=== PATIENT | male | born 1960 | race Caucasian/White ===

== ENCOUNTER 2018-09-29 12:07 | Inpatient (IN) | payer OTHER, SELFPAY ==
[2018-09-29] VITALS (15 sets, daily range): BP systolic 143–163; BP diastolic 81–100; PULSE 61–91; RESP 18–28; TEMP 36.8–38.3; O2SAT 88–96; BMI 41.5; BMI 39.4; BMI 39.5
--- NOTE | 2018-09-29 12:30 | EKG12_ITS ---
Test Reason : SOB Blood Pressure : / mmHG Vent. Rate : 082 BPM Atrial Rate : 082 BPM P-R Int : 150 ms QRS Dur : 100 ms QT Int : 394 ms P-R-T Axes : 037 103 047 degrees QTc Int : 460 ms Normal sinus rhythm Rightward axis Cannot rule out Inferior infarct , age undetermined Abnormal ECG Confirmed by RAPHAEL GONZALEZ, GELY ([id number]), website/blog editor AURELIA GARDNER ([id number]) on 10/02/2018 3:08:35 PM Referred By: MOISE Confirmed By:GELY LIM MD
--- NOTE | 2018-09-29 12:42 | ED.RN ---
NO OLD EKG
--- NOTE | 2018-09-29 12:45 | RAD_ITS ---
STUDY: X-RAY CHEST REASON FOR EXAM: Male, 58 years old. Cough and shortness of breath TECHNIQUE: AP COMPARISON: None. FINDINGS: EKG leads project over the chest. Mild elevation of the right hemidiaphragm. No airspace consolidation. There is no demonstrated pleural abnormality. Normal size cardiac silhouette for portable technique. Normal mediastinum and kirsten. Normal visualized pulmonary arteries. Normal visualized aortic arch and descending thoracic aorta. Normal visualized thoracic spine. Normal visualized ribs, clavicles, and shoulders. There is no demonstrated abnormality of the visualized soft tissue structures of the upper abdomen. RAD/Chest 1 View (Portable) IMPRESSION: Nonacute portable x-ray examination of the chest. Electronically Signed: Art Franks MD at 13:17 EST , Service support ,
[2018-09-29] MEDS: 0.9% Normal Saline 1,000 ML 150 ML IV (12:56)
[2018-09-29 12:58] LABS: Absolute Lymphocyte Count 1.55 X10^3/ul (0.83-4.51); Absolute Neutrophil Count 6.1 X10^3/uL (2.0-7.7); Basophil# 0.02 X10^3/uL; Basophil% 0.2 % (0-1); Eosinophil# 0.03 X10^3/uL; Eosinophils% 0.3 % (0-5); Hematocrit 40.6 % (40-54); Hemoglobin 13.8 g/dl (13.0-16.5); Lymphocyte # 1.55 X10^3/ul (4.0); Lymphocyte % 17.7 % (19-41); Mean Corpuscular Hgb 29.2 pg (27.0-32.0); Mean Corpuscular Volume 85.8 fL (80-94); Mean Platelet Vol. 9.9 fl (6.2-12.0); Monocyte# 1.03 X10^3/uL; Monocyte% 11.8 % (0-10); Neutrophil % 69.7 % (47-70); Platelet Count 214 K/mm3 (150-450); RBC Distribution Width CV 13.3 % (11.6-14.6); RBC Distribution Width SD 42.2 fl (35.1-43.9); Red Blood Count 4.73 M/mm3 (4.6-6.2); White Blood Count 8.8 K/mm3 (4.4-11.0)
[2018-09-29 12:59] LABS: POSITIVE COUNT NO; POSITIVE DIFFERENTIAL NO; POSITIVE MORPHOLOGY NO
[2018-09-29 13:09] LABS: Anion Gap 6 (5-15); BUN 12 mg/dL (7-18); BUN/Creat Ratio 11.2 RATIO (10-20); Calcium,Total 8.1 mg/dL (8.5-10.1); Chloride 102 mmol/L (98-107); Creatinine, Serum 1.07 mg/dL (0.70-1.30); EST Glomerular Filtration Rate 76 mL/min (>60); Est Glom Filt Rate - Afr Amer 92 mL/min (>60); Estimated Creatinine Clearance 67.06 ml/min; Glucose 99 mg/dL (74-106); Potassium 3.7 mmol/L (3.5-5.1); Sodium Level 139 mmol/L (136-145)
[2018-09-29 13:22] LABS: Lactic Acid 1.4 mmol/L (0.4-2.0)
--- NOTE | 2018-09-29 13:22 | CT_ITS ---
STUDY: CTA CHEST REASON FOR EXAM: Male, 58 years old. Shortness of breath with cough and intermittent fevers RADIATION DOSAGE (If Supplied By Facility): CTDIvol = ( 16.67 ) mGy, DLP = ( 677.01 ) mGycm TECHNIQUE: The examination was performed with the intravenous administration of 100ML ml of Isovue 370 contrast material. Post-processing of the angiographic images was performed, with multiplanar reformation and 3D reconstruction. Individualized dose optimization techniques were used for this CT. COMPARISON: None. FINDINGS: Normal enhancement of the main pulmonary artery and right and left pulmonary arteries. There are filling defects identified in the bilateral upper lobes, right middle lobe, lingular and bilateral lower lobe segmental pulmonary arteries. No saddle embolus seen. No evidence of right heart strain. Normal thoracic aorta and visualized great vessels. There is no demonstrated aortic dissection. Heart is mildly enlarged. There are visualized mediastinal lymph nodes, which are within normal size limits, and with normal morphology. Normal hilar regions. Normal visualized trachea and bronchi. The lungs are well expanded. Multilobar peribronchial infiltrates identified in the right upper lobe, right lower lobe and left lower lobe. Minimal reticulonodular densities in the lingula. Normal pleura. Normal chest wall structures. There are degenerative changes of thoracic spine. Normal visualized upper abdomen. CT/CTA Chest W/WO Contrast IMPRESSION: 1. Bilateral segmental pulmonary embolism. No CT evidence of right heart strain. 2. Mild cardiomegaly. 3. Multilobar pulmonary infiltrates may represent atelectasis versus airspace disease (pneumonia, edema or hemorrhage). Electronically Signed: Art Franks MD at 14:05 EST , Service support ,
[2018-09-29] MEDS: Acetaminophen 500 MG Tablet 1000 MG PO (14:05)
--- NOTE | 2018-09-29 14:42 | NURSING ---
DR ROSA CALLED BACK
--- NOTE | 2018-09-29 14:43 | NURSING ---
DR ROSA IN ROOM
[2018-09-29 14:44] LABS: Partial Thromboplast Time 29.2 Seconds (24.1-36.2)
--- NOTE | 2018-09-29 14:51 | NURSING ---
PCU PE, BRONCHITIS KOTSONIS
--- NOTE | 2018-09-29 15:08 | HP.PCM_ITS ---
Problem List (1) Pulmonary embolism Status: Acute (2) Pneumonia Status: Acute (3) HTN (hypertension) Status: Chronic History of Present Illness Date of Admission: 09/29/18 Chief Complaint: SOB The patient is a 58 year old M with a history of hypertension presents with a 2- week history of shortness of breath. He denies any chest pain. He did go see his primary care physician a few days after this started and he was given an inhaler and told that it was likely a viral infection. He presents today because he was walking from his living room to his kitchen and had to stop long-term and hold onto a railing because he was so short of breath. On presentation to the ER, he continues to deny chest pain, lightheadedness, dizziness, fever, chills, however he is endorsing a cough and significant shortness of breath. He was found to be hypoxic on room air to 88% and was started on nasal cannula. CTA of the chest shows bilateral infiltrates that could either be atelectasis, pneumonia, or hemorrhage. Also it demonstrates bilateral pulmonary emboli. Currently he is not tachycardic and therefore unlikely to have significant right-sided heart strain. Of note he says that he has chronic edema because of working that does resolve and his PCP did evaluate him multiple times for possible DVTs in the past. He does not have any recent history of abnormal leg swelling or pain. Also of note he states that he has had a colonoscopy very recently that was negative for any cancer, he did have one polyp removed that was noncancerous. He does not endorse any significant weight loss. Past Medical History Past Medical History (Chronic Problems): Chronic Problems HTN (hypertension) (Chronic) Allergies No Known Allergies Allergy (Verified 09/29/18 12:08) Home Medications: Ambulatory Orders Medication Instructions Recorded Albuterol IH (ProAir) [Proair Hfa] 1 - 2 puff INHALATION Q6H PRN 09/29/18 Bisoprol/Hydrochlorothiazide [Ziac 1 tab PO DAILY 09/29/18 5/6.25 MG Tablet] Virtussin 10 ml PO Q6H PRN 09/29/18 Surgical History: no surgical history Lives: Spouse/ Significant Other Smoking Status: Never smoker Alcohol: None Drugs: None - *Family History Maternal History Items: Cancer, Heart Disease, - - No history of DVTs or PEs Paternal History Items: Cancer, Heart Disease, - - No history of DVTs or PEs Review of Systems Constitutional: Denies: Chills, Fever, Weight Change HEENT: Denies: Head Aches, Sinus Congestion, Sinus Drainage Cardiovascular: Reports: Edema. Denies: Chest Pain, Palpitations Respiratory: Reports: Cough, Shortness of Breath, Shortness of breath at rest, Shortness of breath upon exertion. Denies: Hemoptysis, Pleuritic Pain, Sputum production, Wheezing Gastrointestinal: Denies: Abdominal Pain, Nausea, Vomiting Genitourinary: Denies: Dysuria Musculoskeletal: Denies: Joint Pain, Joint Tenderness Skin: Denies: Rash, Wounds Neurological: Denies: Numbness, Tingling, Focal weakness Psychiatric: Denies: Anxiety, Depression Hematologic/ Lymphatic: Denies: Easy Bruising, Easy Bleeding VTE Information - Inpt Only VTE Present on Admission: Yes VTE Mechan Device Prophylaxis: None VTE Pharm Prophylaxis ordered?: Yes VTE Suspected: Suspected PE Patient Problems: Active and Suspected Problems Pulmonary embolism (Acute) Pneumonia (Acute) - Physical Exam General: Alert, Oriented x3, Cooperative, No apparent distress HEENT: Atraumatic, PERRLA, EOMI, Normocephalic Oral: Moist Mucosa Neck: Supple, No JVD Lungs: Clear to auscultation, Normal air movement, No rhonchi, No wheeze, No rales Cardiovascular: Regular rate, Regular Rhythm Vital Signs Temp Pulse Resp BP Pulse Ox 101 F H 91 20 H 149/95 H 96 09/29/18 14:00 09/29/18 14:56 09/29/18 14:56 09/29/18 14:56 09/29/18 14:56 Oxygen Flow Rate (L/min) 22 Oxygen Delivery Method Nasal Cannula Weight: 250 lb 0.067 oz Body Mass Index (BMI) 41.5 Laboratory Tests Past 24 Hrs 09/29/18 09/29/18 09/29/18 12:43 12:45 12:45 WBC 8.8 RBC 4.73 Hgb 13.8 Hct 40.6 MCV 85.8 MCH 29.2 MCHC 34.0 RDW 13.3 RDW Differential 42.2 Plt Count 214 MPV 9.9 Immature Gran % (Auto) 0.300 Neut % (Auto) 69.7 Lymph % (Auto) 17.7 L [place] % (Auto) 11.8 H Eos % (Auto) 0.3 Baso % (Auto) 0.2 Absolute Neuts (auto) 6.1 Absolute Lymphs (auto) 1.55 Total Counted Not Reportable APTT 29.2 Sodium 139 Potassium 3.7 Chloride 102 Carbon Dioxide 31.0 Anion Gap 6 BUN 12 Creatinine 1.07 Estim Creat Clear Calc 67.06 Est GFR (MDRD) Af Amer 92 Est GFR (MDRD) Non-Af 76 BUN/Creatinine Ratio 11.2 Glucose 99 Lactic Acid Calcium 8.1 L 09/29/18 12:45 WBC RBC Hgb Hct MCV MCH MCHC RDW RDW Differential Plt Count MPV Immature Gran % (Auto) Neut % (Auto) Lymph % (Auto) [place] % (Auto) Eos % (Auto) Baso % (Auto) Absolute Neuts (auto) Absolute Lymphs (auto) Total Counted APTT Sodium Potassium Chloride Carbon Dioxide Anion Gap BUN Creatinine Estim Creat Clear Calc Est GFR (MDRD) Af Amer Est GFR (MDRD) Non-Af BUN/Creatinine Ratio Glucose Lactic Acid 1.4 Calcium Assessment/Plan All Active Problems Pulmonary embolism (Acute) Pneumonia (Acute) 1. Bilateral pulmonary emboli/? pneumonia vs hemorrhage/acute hypoxia - Since there is a possibility of hemorrhage by radiology, will start heparin gtt - IF there is no hemoptysis, or decrease in hemoglobin, can likely discharge on oral anticoagulant - No family h/o clotting disorders, therefore no further hypercoag work-up indicated - With the CTA not demonstrating cancer, and a recent colonoscopy (per patient report), he will need a CT abd/pelvis as an outpatient to complete cancer work- up - Unasyn/Azithro for possible pneumonia given his fever 2. HTN - Can resume his home medications - Currently SBP is stable in the 140's DVT: Heparin gtt Code Visit Inpatient E&M: 89065 Subs Hosp L3
--- NOTE | 2018-09-29 15:12 | ED.VISSUMM ---
- ER Visit Summary Date of Service: 09/29/18 Chief Complaint: Cough and shortness of breath History of Present Illness: The patient is a 58 M with upper respiratory type symptoms for the past 2 weeks. Patient states he initially had cough with some sputum production, congestion, and wheezing. He was seen by his primary care physician. He was told he had a viral illness and was given an albuterol inhaler and cough syrup. Over the past 1 week he has had increasing shortness of breath. He continues to have fevers. He is no longer bringing up any sputum with his cough. Today but he became significantly short of breath just walking from room to room in his home and his brought him in. Patient does not have smoking history or significant pulmonary condition. Physical Examination: Blood pressure is 150/100, temperature 98.2, heart rate 83, respiratory rate 26, pulse ox 88% on room air. When we enter the room to examine the patient his pulse ox is 85% on room air. This increases to the mid 90s on 2 L nasal cannula. Head and neck examination is grossly unremarkable. Heart is regular rate and rhythm. Lung sounds are diminished at the bases bilaterally. He has scant wheezing noted to the left upper lung. He is tachypneic. Abdomen is soft, obese, nontender. Test Results: EKG is sinus 82 with no sign of acute ischemia. Chest x-ray read by radiology with no evidence of acute disease. CBC and chemistry studies are unremarkable. Lactate is normal. Blood cultures have been drawn. Emergency Department Course and Treatment: On repeat exam temperature has increased to 101. Tylenol has been ordered. CTA of the chest was obtained and does reveal bilateral segmental PEs. There is no CT evidence of right heart strain. Multilobar pulmonary infiltrates may represent atelectasis versus pneumonia versus hemorrhage. Test results are discussed with the patient and at bedside. Because he may have evidence of hemorrhage, Heparin drip and bolus have been ordered so this can be turned off abruptly if he develops hemoptysis. Patient will also be covered with Rocephin and Zithromax for his bronchitis/pneumonia like illness. Treatment Plan: [] Disposition: Admit Impression: 1. Bilateral pulmonary emboli 2. Bronchitis This note was generated with [employer]to[employer] dictation software. It may contain incorrect words, spelling, and punctuation that were not noted in review of the chart prior to signing ED Disposition - Plan for ED Patient: Chief Complaint: Shortness of Breath
[2018-09-29] MEDS: Heparin Injection (Vial) 5,000 UNIT/ML VIAL 4000 UNIT IV (15:25)
[2018-09-29] MEDS: Ceftriaxone 1 GM/50 ML BAG IV (15:26)
[2018-09-29] MEDS: HEPARIN/D5w 25,000 UNITS 25,000 UNITS/250 ML IV.SOLN. 10 UNITS IV (15:33)
--- NOTE | 2018-09-29 19:00 | EKG12_ITS ---
Test Reason : ARRYTHMIA Blood Pressure : / mmHG Vent. Rate : 075 BPM Atrial Rate : 075 BPM P-R Int : 162 ms QRS Dur : 110 ms QT Int : 438 ms P-R-T Axes : 049 008 043 degrees QTc Int : 489 ms Normal sinus rhythm Inferior infarct , age undetermined Abnormal ECG When compared with ECG of 29-SEP-2018 12:42, MANUAL COMPARISON REQUIRED, DATA IS UNCONFIRMED Confirmed by RAPHAEL GONZALEZ, GELY ([id number]), publications editor AURELIA GARDNER ([id number]) on 10/02/2018 3:57:22 PM Referred By: DR GAYLE Confirmed By:GELY LIM MD
[2018-09-29 20:51] LABS: Partial Thromboplast Time 51.8 Seconds (24.1-36.2)
[2018-09-29 21:05] LABS: Magnesium 2.2 mg/dL (1.6-2.6); Thyroid Stim Hormone (TSH) 0.98 uIU/mL (0.358-3.74)
[2018-09-30] VITALS (25 sets, daily range): BP systolic 131–157; BP diastolic 72–92; PULSE 71–94; RESP 20–29; TEMP 36.8–38.6; O2SAT 92–97
[2018-09-30 04:24] LABS: Absolute Lymphocyte Count 1.55 X10^3/ul (0.83-4.51); Basophil# 0.02 X10^3/uL; Basophil% 0.2 % (0-1); Eosinophil# 0.06 X10^3/uL; Eosinophils% 0.6 % (0-5); Hematocrit 38.4 % (40-54); Hemoglobin 12.9 g/dl (13.0-16.5); Lymphocyte # 1.55 X10^3/ul (4.0); Lymphocyte % 15.5 % (19-41); Mean Corp Hgb Conc 33.6 g/gl (32-36); Mean Corpuscular Hgb 29.5 pg (27.0-32.0); Mean Corpuscular Volume 87.7 fL (80-94); Mean Platelet Vol. 10.5 fl (6.2-12.0); Monocyte# 1.32 X10^3/uL; Monocyte% 13.2 % (0-10); Neutrophil # 7.03 X10^3/uL (2.7-7.7); Neutrophil % 70.2 % (47-70); Platelet Count 214 K/mm3 (150-450); RBC Distribution Width CV 13.5 % (11.6-14.6); RBC Distribution Width SD 42.2 fl (35.1-43.9); Red Blood Count 4.38 M/mm3 (4.6-6.2)
[2018-09-30 04:30] LABS: POSITIVE COUNT NO; POSITIVE DIFFERENTIAL NO; POSITIVE MORPHOLOGY NO; Partial Thromboplast Time 49.6 Seconds (24.1-36.2)
[2018-09-30 04:55] LABS: Anion Gap 9 (5-15); BUN 11 mg/dL (7-18); BUN/Creat Ratio 10.5 RATIO (10-20); Calcium,Total 7.9 mg/dL (8.5-10.1); Chloride 105 mmol/L (98-107); Creatinine, Serum 1.05 mg/dL (0.70-1.30); EST Glomerular Filtration Rate 78 mL/min (>60); Est Glom Filt Rate - Afr Amer 94 mL/min (>60); Estimated Creatinine Clearance 70.89 ml/min; Glucose 113 mg/dL (74-106); Potassium 3.9 mmol/L (3.5-5.1); Sodium Level 140 mmol/L (136-145)
[2018-09-30] MEDS: Acetaminophen 325 MG Tablet 650 MG PO ×3 (11:00→23:46)
[2018-09-30 11:39] LABS: Partial Thromboplast Time 41.2 Seconds (24.1-36.2)
--- NOTE | 2018-09-30 12:16 | CASEMGMT ---
IVAN CHADWICK assessment: Face to Face with patient for initial transition planning/care coordination assessment. IVAN CHADWICK introduced self and role at [facility], pt voices understanding and consents to assessment at this time. Pt is lying in bed in no distress at this time. Pt is A/O x4 at this time and answers all questions appropriately at this time. Pt with family at bedside during assessment. Care providers, pharmacy, and demographics verified at this time. PCP: [facility] Specialists: Pt states currently has no specialists. [facility]erred [facility]acy: [facility] Insurance: MMO Prescription Benefit: MMO Living Will/HPOA: Pt states does not have LW/HPOA and declines info at this time. Pt is aware to notify CM if he is interested in AD paperwork or to complete it. LNOK: Deisy Betts, Living Arrangements: Pt states lives with in 2 story home and states no concerns at home at this time. Transportation: Pt states drives self and states no transportation concerns at this time. DME/HHC: Pt states no current DME or need for any at this time. Pt states no hx of HHC or SNF at this time. Pt states no concerns with going home at time of discharge. 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 Pt states does not smoke or drink ETOH. Pt states no further concerns/needs at this time. CM to follow for home oxygen and any further discharge planning/needs. Advised pt to ask for CM if any further questions/concerns/needs arise, voices understanding. Plan: [place] IVAN CHADWICK
--- NOTE | 2018-09-30 12:48 | PN_ITS ---
<Zachary Doherty - Last Filed: 09/30/18 12:41> Patient Problems: Active and Suspected Problems Pulmonary embolism (Acute) Pneumonia (Acute) Subjective: Pt continues to be somewhat SOB, requiring O2 (not on at home), and has fevers and a productive cough. He states he has had leg swelling frequently but never had LE US. He denies personal hx of clots, however his dad and his dads sister had hx of clots. No chest pain, heaviness, tightness. - Physical Exam General: Alert, Oriented x3, Cooperative HEENT: Atraumatic, PERRLA, EOMI, Normocephalic Neck: Supple, No JVD, Negative Carotid Bruits Lungs: Diminished, Rales - BL Cardiovascular: Regular rate, No murmurs Abdomen: Bowel Sounds Present, Soft, Non Tender Extremities: No edema, Capillary Refill Less than 3 Seconds Skin: No rashes, No breakdown Musculoskeletal: No Tenderness to Palpation of Joints or Extremities Neurological: Cranial nerves II-XII grossly intact Psych/Mental Status: Normal Affect, Appropriate, Alert and oriented to time, place, person, mood and affect Vital Signs Temp Pulse Resp BP Pulse Ox 100.6 F H 85 20 H 146/87 H 96 09/30/18 11:00 09/30/18 11:00 09/30/18 11:00 09/30/18 11:00 09/30/18 11:00 Oxygen Flow Rate (L/min) 3 Oxygen Delivery Method Nasal Cannula Weight: 244 lb 7.882 oz Body Mass Index (BMI) 39.4 Intake and Output for Last 24 Hours 09/28/18 09/29/18 09/30/18 23:59 23:59 23:59 Intake Total 655.2 / 655.2 63 / 63 Balance 655.2 / 655.2 63 / 63 Laboratory Tests Past 24 Hrs 09/29/18 09/29/18 09/29/18 12:43 12:45 12:45 WBC 8.8 RBC 4.73 Hgb 13.8 Hct 40.6 MCV 85.8 MCH 29.2 MCHC 34.0 RDW 13.3 RDW Differential 42.2 Plt Count 214 MPV 9.9 Immature Gran % (Auto) 0.300 Neut % (Auto) 69.7 Lymph % (Auto) 17.7 L [place] % (Auto) 11.8 H Eos % (Auto) 0.3 Baso % (Auto) 0.2 Absolute Neuts (auto) 6.1 Absolute Lymphs (auto) 1.55 Total Counted Not Reportable APTT 29.2 Sodium 139 Potassium 3.7 Chloride 102 Carbon Dioxide 31.0 Anion Gap 6 BUN 12 Creatinine 1.07 Estim Creat Clear Calc 67.06 Est GFR (MDRD) Af Amer 92 Est GFR (MDRD) Non-Af 76 BUN/Creatinine Ratio 11.2 Glucose 99 Lactic Acid Calcium 8.1 L Magnesium TSH 09/29/18 09/29/18 09/29/18 12:45 20:35 20:35 WBC RBC Hgb Hct MCV MCH MCHC RDW RDW Differential Plt Count MPV Immature Gran % (Auto) Neut % (Auto) Lymph % (Auto) [place] % (Auto) Eos % (Auto) Baso % (Auto) Absolute Neuts (auto) Absolute Lymphs (auto) Total Counted APTT 51.8 H Sodium Potassium Chloride Carbon Dioxide Anion Gap BUN Creatinine Estim Creat Clear Calc Est GFR (MDRD) Af Amer Est GFR (MDRD) Non-Af BUN/Creatinine Ratio Glucose Lactic Acid 1.4 Calcium Magnesium 2.2 TSH 0.98 09/30/18 09/30/18 09/30/18 04:00 04:00 04:00 WBC 10.0 RBC 4.38 L Hgb 12.9 L Hct 38.4 L MCV 87.7 MCH 29.5 MCHC 33.6 RDW 13.5 RDW Differential 42.2 Plt Count 214 MPV 10.5 Immature Gran % (Auto) 0.300 Neut % (Auto) 70.2 H Lymph % (Auto) 15.5 L [place] % (Auto) 13.2 H Eos % (Auto) 0.6 Baso % (Auto) 0.2 Absolute Neuts (auto) 7.0 Absolute Lymphs (auto) 1.55 Total Counted Not Reportable APTT 49.6 H Sodium 140 Potassium 3.9 Chloride 105 Carbon Dioxide 26.0 Anion Gap 9 BUN 11 Creatinine 1.05 Estim Creat Clear Calc 70.89 Est GFR (MDRD) Af Amer 94 Est GFR (MDRD) Non-Af 78 BUN/Creatinine Ratio 10.5 Glucose 113 H Lactic Acid Calcium 7.9 L Magnesium TSH 09/30/18 11:18 WBC RBC Hgb Hct MCV MCH MCHC RDW RDW Differential Plt Count MPV Immature Gran % (Auto) Neut % (Auto) Lymph % (Auto) [place] % (Auto) Eos % (Auto) Baso % (Auto) Absolute Neuts (auto) Absolute Lymphs (auto) Total Counted APTT 41.2 H Sodium Potassium Chloride Carbon Dioxide Anion Gap BUN Creatinine Estim Creat Clear Calc Est GFR (MDRD) Af Amer Est GFR (MDRD) Non-Af BUN/Creatinine Ratio Glucose Lactic Acid Calcium Magnesium TSH Medical Necessity - Tobacco Use Smoking Status: Never smoker Assessment/Plan All Active Problems Pulmonary embolism (Acute) Pneumonia (Acute) 1. BL PE's - heparin. Concern for hemorrhage on radiographs, however no hemoptysis, small drop in hgb. Continue heparin and trend H/H, watch for hemoptysis. -Plan to transition to OAC at DC. -Significant family hx of clots in dad and aunt, that warrants work up as outpatient. This appears to be unprovoked, no recent injury, no recent travel or sedentary behavior, no androgen/estrogen use, no smoking. -Check Echo -tsh/mag normal. 2. Acute sepsis 2/2 BL Pna - continue unasyn, azithro. Check sputum cx, urine antigens, blood culutres. Fever ongoing. No WBC elevation. LA neg. 3. HTN - trend DVT ppx: Heparin drip DC planning: home when stable This patient was seen by Zachary Doherty PA-C under the supervision of Dr. Juarez <Sorin Juarez - Last Filed: 09/30/18 16:13> - Physical Exam Vital Signs Temp Pulse Resp BP Pulse Ox 99.1 F 78 26 H 134/82 H 94 09/30/18 13:32 09/30/18 13:32 09/30/18 13:32 09/30/18 13:32 09/30/18 13:32 Oxygen Flow Rate (L/min) 3 Oxygen Delivery Method Nasal Cannula Weight: 110.9 kg Body Mass Index (BMI) 39.4 Intake and Output for Last 24 Hours 09/28/18 09/29/18 09/30/18 23:59 23:59 23:59 Intake Total 655.2 / 655.2 303 / 303 Balance 655.2 / 655.2 303 / 303 Laboratory Tests Past 24 Hrs 09/29/18 09/29/18 09/30/18 20:35 20:35 04:00 WBC 10.0 RBC 4.38 L Hgb 12.9 L Hct 38.4 L MCV 87.7 MCH 29.5 MCHC 33.6 RDW 13.5 RDW Differential 42.2 Plt Count 214 MPV 10.5 Immature Gran % (Auto) 0.300 Neut % (Auto) 70.2 H Lymph % (Auto) 15.5 L [place] % (Auto) 13.2 H Eos % (Auto) 0.6 Baso % (Auto) 0.2 Absolute Neuts (auto) 7.0 Absolute Lymphs (auto) 1.55 Total Counted Not Reportable APTT 51.8 H Sodium Potassium Chloride Carbon Dioxide Anion Gap BUN Creatinine Estim Creat Clear Calc Est GFR (MDRD) Af Amer Est GFR (MDRD) Non-Af BUN/Creatinine Ratio Glucose Calcium Magnesium 2.2 TSH 0.98 09/30/18 09/30/18 09/30/18 04:00 04:00 11:18 WBC RBC Hgb Hct MCV MCH MCHC RDW RDW Differential Plt Count MPV Immature Gran % (Auto) Neut % (Auto) Lymph % (Auto) [place] % (Auto) Eos % (Auto) Baso % (Auto) Absolute Neuts (auto) Absolute Lymphs (auto) Total Counted APTT 49.6 H 41.2 H Sodium 140 Potassium 3.9 Chloride 105 Carbon Dioxide 26.0 Anion Gap 9 BUN 11 Creatinine 1.05 Estim Creat Clear Calc 70.89 Est GFR (MDRD) Af Amer 94 Est GFR (MDRD) Non-Af 78 BUN/Creatinine Ratio 10.5 Glucose 113 H Calcium 7.9 L Magnesium TSH Assessment/Plan This patient was seen in conjunction with Zachary Doherty PA-C . I have independently interviewed and examined the patient and reviewed pertinent historical, laboratory, and other data. Please refer to Zachary Doherty PA-C note for details of this patient's presentation, findings, and recommendations. I have reviewed Zachary Doherty PA-C note and concur with documented findings. In brief, patient is a 58-year-old gentleman in relatively good health who presented with progressive shortness of breath as well as persistent cough of weeks duration. CT of the chest obtained demonstrated Bilateral segmental pulmonary embolism with No CT evidence of right heart strain. He was also found to have multilevel lobar pulmonary infiltrate differential diagnosis include atelectasis versus airspace disease (pneumonia, edema and hemorrhage) patient was started on empiric antibiotic therapy following development of fever Physical Examination: GENERAL: Appears ill looking HEENT: Atraumatic; moist oral mucosa EYES; Anicteric, Normal Conjunctiva NECK; supple, normal thyroid, no distended JVD. RESPIRATORY: Diminished to auscultation bilaterally, CARDIOVASCULAR: Regular S1 S2, no audible murmurs GI: soft, non-tender, normoactive bowel sounds, : No Renal angle tenderness; EXTREMITIES: No edema, no clubbing, no cyanosis. NEURO: Awake; no lateralizing signs. PSYCH; Normal affect Assessment: 1. Acute unprovoked bilateral segmental pulmonary embolism currently on heparin 2. Multi lobar pulmonary infiltrate? Pulmonary infarct with patient developing fever patient was treated empirically as a case of pneumonia 3. Obesity with BMI of 39.5 4. Essential hypertension Recommendations: 1. I have discussed the results of my overview and impressions with the patient 2. Options for management were reviewed Active Medications Acetaminophen (Tylenol) 650 mg PO Q6H PRN PRN PRN Reason: Fever/ pain Last Admin: 09/30/18 11:00 Dose: 650 mg Guaifenesin (Mucinex) 1,200 mg PO BID KIERAN Heparin Sodium (Porcine) (Heparin Na) 0 unit IV UD PRN; Protocol Ampicillin Sodium/Sulbactam (Sodium 3 gm/ Sodium Chloride) 112 mls @ 150 mls/hr IV Q8 [facility] Last Admin: 09/30/18 13:48 Dose: 150 mls/hr Heparin Sodium/Dextrose () 25,000 units in 250 mls @ 10 mls/hr IV .Q25H KIERAN; Protocol Last Admin: 09/30/18 13:36 Dose: 10 mls/hr Azithromycin 500 mg/ Dextrose 255 mls @ 250 mls/hr IV Q24 [facility] Last Admin: 09/30/18 10:29 Dose: 250 mls/hr Magnesium Hydroxide (Milk Of Magnesia) 30 ml PO DAILY PRN PRN Reason: Constipation Sodium Chloride () 5 - 15 ml IV UD PRN PRN Reason: SALINE FLUSH Clinical Impression(s) from Imaging Studies Chest X-Ray 09/29/18 12:45 IMPRESSION: Nonacute portable x-ray examination of the chest. Electronically Signed: Art Franks MD at 13:17 EST , Service support , Chest CTA 09/29/18 13:22 IMPRESSION: 1. Bilateral segmental pulmonary embolism. No CT evidence of right heart strain. 2. Mild cardiomegaly. 3. Multilobar pulmonary infiltrates may represent atelectasis versus airspace disease (pneumonia, edema or hemorrhage). Electronically Signed: Art Franks MD at 14:05 EST , Service support , Code Visit Inpatient E&M: 42370 Subs Hosp L3
[2018-09-30] MEDS: HEPARIN/D5w 25,000 UNITS 25,000 UNITS/250 ML IV.SOLN. 10 UNITS IV (13:36)
--- NOTE | 2018-09-30 18:01 | EKG12_ITS ---
Test Reason : Blood Pressure : / mmHG Vent. Rate : 080 BPM Atrial Rate : 080 BPM P-R Int : 150 ms QRS Dur : 104 ms QT Int : 422 ms P-R-T Axes : 049 -04 035 degrees QTc Int : 486 ms Normal sinus rhythm Prolonged QT Abnormal ECG When compared with ECG of 29-SEP-2018 20:09, MANUAL COMPARISON REQUIRED, DATA IS UNCONFIRMED Confirmed by RAPHAEL GONZALEZ, GELY ([id number]), editorial manager AURELIA GARDNER ([id number]) on 10/04/2018 2:15:58 PM Referred By: DEXTER Confirmed By:GELY LIM MD
[2018-09-30 19:17] LABS: Partial Thromboplast Time 57.5 Seconds (24.1-36.2)
[2018-09-30] MEDS: guaiFENesin 1,200 MG Tablet 1200 MG PO (21:22)
[2018-10-01] VITALS (24 sets, daily range): BP systolic 129–155; BP diastolic 77–90; PULSE 70–96; RESP 20–29; TEMP 36.4–36.9; O2SAT 86–97
[2018-10-01 01:46] LABS: Partial Thromboplast Time 38.6 Seconds (24.1-36.2)
[2018-10-01] MEDS: Heparin Injection (Vial) 5,000 UNIT/ML VIAL IV (01:55)
[2018-10-01 08:49] LABS: Absolute Lymphocyte Count 1.77 X10^3/ul (0.83-4.51); Absolute Neutrophil Count 9.6 X10^3/uL (2.0-7.7); Basophil# 0.02 X10^3/uL; Basophil% 0.2 % (0-1); Eosinophil# 0.06 X10^3/uL; Eosinophils% 0.5 % (0-5); Hematocrit 40.3 % (40-54); Hemoglobin 13.5 g/dl (13.0-16.5); Lymphocyte # 1.77 X10^3/ul (4.0); Lymphocyte % 14.1 % (19-41); Mean Corp Hgb Conc 33.5 g/gl (32-36); Mean Corpuscular Hgb 29.2 pg (27.0-32.0); Mean Corpuscular Volume 87.2 fL (80-94); Monocyte# 1.08 X10^3/uL; Monocyte% 8.6 % (0-10); Neutrophil # 9.57 X10^3/uL (2.7-7.7); Neutrophil % 76.3 % (47-70); POSITIVE COUNT NO; POSITIVE DIFFERENTIAL NO; POSITIVE MORPHOLOGY NO; Platelet Count 289 K/mm3 (150-450); RBC Distribution Width CV 13.5 % (11.6-14.6); RBC Distribution Width SD 42.9 fl (35.1-43.9); Red Blood Count 4.62 M/mm3 (4.6-6.2); White Blood Count 12.5 K/mm3 (4.4-11.0)
[2018-10-01] MEDS: HEPARIN/D5w 25,000 UNITS 25,000 UNITS/250 ML IV.SOLN. 10 UNITS IV (09:44)
[2018-10-01] MEDS: guaiFENesin 1,200 MG Tablet 1200 MG PO ×2 (09:52→21:49)
--- NOTE | 2018-10-01 12:17 | PCM.CONS.GEN ---
Reason for Consult Date of Consultation: 10/01/18 Reason for Consultation: Acute hypoxic respiratory insufficiency History of Present Illness: The patient is a 58-year-old male, with a history as outlined below, who presented to the emergency department on September 29 with complaints of progressive shortness of breath. The patient reports that his symptoms worsened in the 3-4 days leading up to his admission. He was evaluated by his primary care provider for the aforementioned symptoms and was provided with an albuterol inhaler due to a presumptive viral infection. The patient denies any history of COPD or asthma. He additionally reports no prior smoking history. The patient denies a history of previous venous thrombolic disease. He does report recent immobility due to feeling under the weather over the last several weeks. On presentation to the emergency department, the patient was noted to be afebrile, tachypneic and hypoxic on room air. Initial laboratory evaluation revealed no evidence of a leukocytosis. Chemistry profile was largely unrevealing. A CTA chest was obtained and revealed evidence of bilateral pulmonary emboli along with multifocal pulmonary infiltrates. The patient was subsequently started on antibiotics along with a heparin drip. He was admitted to the progressive care unit for ongoing management. Past Medical History Past Medical History (Chronic Problems): Chronic Problems HTN (hypertension) (Chronic) Allergies No Known Allergies Allergy (Verified 09/29/18 12:08) Home Medications: Ambulatory Orders Medication Instructions Recorded Albuterol IH (ProAir) [Proair Hfa] 1 - 2 puff INHALATION Q6H PRN 09/29/18 Bisoprol/Hydrochlorothiazide [Ziac 1 tab PO DAILY@1500 09/29/18 5/6.25 MG Tablet] Virtussin 10 ml PO Q6H PRN 09/29/18 Surgical History: no surgical history Lives: Spouse/ Significant Other Smoking Status: Never smoker Alcohol: None Drugs: None - *Family History Maternal History Items: Cancer, Heart Disease, - - No history of DVTs or PEs Paternal History Items: Cancer, Heart Disease, - - No history of DVTs or PEs Review of Systems Constitutional: Reports: Malaise, Weakness, Fatigue Eyes: Denies: Blurred vision, Double vision HEENT: Denies: Head Aches, Sinus Congestion, Sinus Drainage Cardiovascular: Denies: Chest Pain, Palpitations Respiratory: Reports: Cough, Shortness of Breath Gastrointestinal: Denies: Abdominal Pain, Nausea, Vomiting Genitourinary: Denies: Dysuria Musculoskeletal: Denies: Joint Pain, Joint Tenderness Skin: Denies: Rash, Wounds Neurological: Denies: Numbness, Tingling, Focal weakness Psychiatric: Denies: Anxiety, Depression, Homicidal Ideations, Suicidal Ideations Hematologic/ Lymphatic: Denies: Easy Bruising, Easy Bleeding Patient Problems: Active and Suspected Problems Pulmonary embolism (Acute) Pneumonia (Acute) Objective: The patient's most recent lab work, culture data and imaging studies have all been personally reviewed. - Physical Exam General: Alert, Cooperative, - - Ill in appearance. Family is present at the bedside. HEENT: Atraumatic, PERRLA, Normocephalic Oral: No Gingival or Mucosal Lesions/ Ulcerations Neck: Supple, No Nodes, Trachea Midline Lungs: Diminished, Rales, - - Poor inspiratory effort Cardiovascular: Regular rate, Regular Rhythm, Normal S1, Normal S2, No murmurs Abdomen: Bowel Sounds Present, Soft, Non Tender, Obese Extremities: No clubbing, No cyanosis, No edema Skin: No breakdown Musculoskeletal: No Tenderness to Palpation of Joints or Extremities Lymphatic: No Cervical, Supraclavicular, or Inguinal Adenopathy Neurological: Cranial nerves II-XII grossly intact, Neuro grossly intact Psych/Mental Status: Flat Affect Vital Signs Temp Pulse Resp BP Pulse Ox 36.6 C 83 24 H 146/81 H 86 10/01/18 11:00 10/01/18 11:00 10/01/18 11:00 10/01/18 11:00 10/01/18 11:00 Oxygen Flow Rate (L/min) 2 Oxygen Delivery Method Nasal Cannula Weight: 244 lb 7.882 oz Body Mass Index (BMI) 39.4 Intake and Output for Last 24 Hours 09/29/18 09/30/18 10/01/18 23:59 23:59 23:59 Intake Total 655.2 / 655.2 1763 / 1763 522 / 522 Balance 655.2 / 655.2 1762 / 1762 522 / 522 Microbiology Past 72 Hours 09/29/18 12:52 Blood Culture - Preliminary Blood Culture (Wb) - Anticubital Left No growth in 48 hours. 09/29/18 12:45 Blood Culture - Preliminary Blood Culture (Wb) - Anticubital Right No growth in 48 hours. 09/30/18 23:43 Streptococcus pneumoniae Antigen (M - Final Urine, Clean Catch 09/30/18 23:43 Legionella Antigen - Final Urine, Clean Catch Laboratory Tests Past 24 Hrs 09/30/18 10/01/18 10/01/18 18:45 01:05 08:35 WBC 12.5 H RBC 4.62 Hgb 13.5 Hct 40.3 MCV 87.2 MCH 29.2 MCHC 33.5 RDW 13.5 RDW Differential 42.9 Plt Count 289 MPV 10.0 Immature Gran % (Auto) 0.300 Neut % (Auto) 76.3 H Lymph % (Auto) 14.1 L [place] % (Auto) 8.6 Eos % (Auto) 0.5 Baso % (Auto) 0.2 Absolute Neuts (auto) 9.6 H Absolute Lymphs (auto) 1.77 Total Counted Not Reportable APTT 57.5 H 38.6 H 10/01/18 08:35 WBC RBC Hgb Hct MCV MCH MCHC RDW RDW Differential Plt Count MPV Immature Gran % (Auto) Neut % (Auto) Lymph % (Auto) [place] % (Auto) Eos % (Auto) Baso % (Auto) Absolute Neuts (auto) Absolute Lymphs (auto) Total Counted APTT 64.0 H Clinical Impression(s) from Imaging Studies Chest X-Ray 09/29/18 12:45 IMPRESSION: Nonacute portable x-ray examination of the chest. Electronically Signed: Art Franks MD at 13:17 EST , Service support , Chest CTA 09/29/18 13:22 IMPRESSION: 1. Bilateral segmental pulmonary embolism. No CT evidence of right heart strain. 2. Mild cardiomegaly. 3. Multilobar pulmonary infiltrates may represent atelectasis versus airspace disease (pneumonia, edema or hemorrhage). Electronically Signed: Art Franks MD at 14:05 EST , Service support , Assessment/Plan All Active Problems Pulmonary embolism (Acute) Pneumonia (Acute) RECOMMENDATIONS: 1. Transition from continuous heparin infusion to Xarelto or Eliquis. 2. Wean supplemental oxygen as tolerated. 3. Transition antibiotics to p.o. Levaquin to complete a 7-day treatment course. 4. Perform walking oximetry study prior to consideration for discharge from the hospital. 5. Check MRSA screen. 6. The patient should follow-up in the pulmonary medicine clinic within 2 weeks of his discharge from the hospital. IMPRESSIONS: 1. Acute hypoxic respiratory insufficiency Multifactorial in etiology with bilateral pulmonary emboli and presumptive community-acquired pneumonia contributing. Continue to wean supplemental oxygen to maintain saturations at or above 90%. Encourage incentive spirometer use and mobilize patient as tolerated. Recommend transitioning patient to Levaquin to complete a 7-day treatment course of antibiotics. The patient's continuous heparin infusion can be transitioned either to Xarelto or Eliquis from my perspective. Perform walking oximetry study prior to consideration for discharge from the hospital. The patient will need to follow-up in the pulmonary medicine clinic within 2 weeks of his discharge from the hospital. This note was generated with [employer] dictation software. It may contain incorrect words, spelling, and punctuation that were not noted in checking the note before signing. Code Visit Inpatient E&M: 53411 Init Hosp L2
--- NOTE | 2018-10-01 12:22 | CON.PCM_ITS ---
Reason for Consult Date of Consultation: 10/01/18 Reason for Consultation: Acute hypoxic respiratory insufficiency History of Present Illness: The patient is a 58-year-old male, with a history as outlined below, who presented to the emergency department on September 29 with complaints of progress robert shortness of breath. The patient reports that his symptoms worsened in the 3-4 days leading up to his admission. He was evaluated by his primary care provider for the aforementioned symptoms and was provided with an albuterol inhaler due to a presumptive viral infection. The patient denies any history of COPD or asthma. He additionally reports no prior smoking history. The patient denies a history of previous venous thrombolic disease. He does report recent immobility due to feeling under the weather over the last several weeks. On presentation to the emergency department, the patient was noted to be afebrile, tachypneic and hypoxic on room air. Initial laboratory evaluation revealed no evidence of a leukocytosis. Chemistry profile was largely unrevealing. A CTA chest was obtained and revealed evidence of bilateral pulmonary emboli along with multifocal pulmonary infiltrates. The patient was subsequently started on antibiotics along with a heparin drip. He was admitted to the progressive care unit for ongoing management. Past Medical History Past Medical History (Chronic Problems): Chronic Problems HTN (hypertension) (Chronic) Allergies No Known Allergies Allergy (Verified 09/29/18 12:08) Home Medications: Ambulatory Orders Medication Instructions Recorded Albuterol IH (ProAir) [Proair Hfa] 1 - 2 puff INHALATION Q6H PRN 09/29/18 Bisoprol/Hydrochlorothiazide [Ziac 1 tab PO DAILY@1500 09/29/18 5/6.25 MG Tablet] Virtussin 10 ml PO Q6H PRN 09/29/18 Surgical History: no surgical history Lives: Spouse/ Significant Other Smoking Status: Never smoker Alcohol: None Drugs: None - *Family History Maternal History Items: Cancer, Heart Disease, - - No history of DVTs or PEs Paternal History Items: Cancer, Heart Disease, - - No history of DVTs or PEs Review of Systems Constitutional: Reports: Malaise, Weakness, Fatigue Eyes: Denies: Blurred vision, Double vision HEENT: Denies: Head Aches, Sinus Congestion, Sinus Drainage Cardiovascular: Denies: Chest Pain, Palpitations Respiratory: Reports: Cough, Shortness of Breath Gastrointestinal: Denies: Abdominal Pain, Nausea, Vomiting Genitourinary: Denies: Dysuria Musculoskeletal: Denies: Joint Pain, Joint Tenderness Skin: Denies: Rash, Wounds Neurological: Denies: Numbness, Tingling, Focal weakness Psychiatric: Denies: Anxiety, Depression, Homicidal Ideations, Suicidal I deations Hematologic/ Lymphatic: Denies: Easy Bruising, Easy Bleeding Patient Problems: Active and Suspected Problems Pulmonary embolism (Acute) Pneumonia (Acute) Objective: The patient's most recent lab work, culture data and imaging studies have all been personally reviewed. - Physical Exam General: Alert, Cooperative, - - Ill in appearance. Family is present at the bedside. HEENT: Atraumatic, PERRLA, Normocephalic Oral: No Gingival or Mucosal Lesions/ Ulcerations Neck: Supple, No Nodes, Trachea Midline Lungs: Diminished, Rales, - - Poor inspiratory effort Cardiovascular: Regular rate, Regular Rhythm, Normal S1, Normal S2, No murmurs Abdomen: Bowel Sounds Present, Soft, Non Tender, Obese Extremities: No clubbing, No cyanosis, No edema Skin: No breakdown Musculoskeletal: No Tenderness to Palpation of Joints or Extremities Lymphatic: No Cervical, Supraclavicular, or Inguinal Adenopathy Neurological: Cranial nerves II-XII grossly intact, Neuro grossly intact Psych/Mental Status: Flat Affect Vital Signs Temp Pulse Resp BP Pulse Ox 36.6 C 83 24 H 146/81 H 86 10/01/18 11:00 10/01/18 11:00 10/01/18 11:00 10/01/18 11:00 10/01/18 11:00 Oxygen Flow Rate (L/min) 2 Oxygen Delivery Method Nasal Cannula Weight: 244 lb 7.882 oz Body Mass Index (BMI) 39.4 Intake and Output for Last 24 Hours 09/29/18 09/30/18 10/01/18 23:59 23:59 23:59 Intake Total 655.2 / 655.2 1763 / 1763 522 / 522 Balance 655.2 / 655.2 1762 / 176 522 / 522 Microbiology Past 72 Hours 09/29/18 12:52 Blood Culture - Preliminary Blood Culture (Wb) - Anticubital Left No growth in 48 hours. 09/29/18 12:45 Blood Culture - Preliminary Blood Culture (Wb) - Anticubital Right No growth in 48 hours. 09/30/18 23:43 Streptococcus pneumoniae Antigen (M - Final Urine, Clean Catch 09/30/18 23:43 Legionella Antigen - Final Urine, Clean Catch Laboratory Tests Past 24 Hrs 09/30/18 10/01/18 10/01/18 18:45 01:05 08:35 WBC 12.5 H RBC 4.62 Hgb 13.5 Hct 40.3 MCV 87.2 MCH 29.2 MCHC 33.5 RDW 13.5 RDW Differential 42.9 Plt Count 289 MPV 10.0 Immature Gran % (Auto) 0.300 Neut % (Auto) 76.3 H Lymph % (Auto) 14.1 L [place] % (Auto) 8.6 Eos % (Auto) 0.5 Baso % (Auto) 0.2 Absolute Neuts (auto) 9.6 H Absolute Lymphs (auto) 1.77 Total Counted Not Reportable APTT 57.5 H 38.6 H 10/01/18 08:35 WBC RBC Hgb Hct MCV MCH MCHC RDW RDW Differential Plt Count MPV Immature Gran % (Auto) Neut % (Auto) Lymph % (Auto) [place] % (Auto) Eos % (Auto) Baso % (Auto) Absolute Neuts (auto) Absolute Lymphs (auto) Total Counted APTT 64.0 H Clinical Impression(s) from Imaging Studies Chest X-Ray 09/29/18 12:45 IMPRESSION: Nonacute portable x-ray examination of the chest. Electronically Signed: Art Franks MD at 13:17 EST , Service support , Chest CTA 09/29/18 13:22 IMPRESSION: 1. Bilateral segmental pulmonary embolism. No CT evidence of right heart strain. 2. Mild cardiomegaly. 3. Multilobar pulmonary infiltrates may represent atelectasis versus airspace disease (pneumonia, edema or hemorrhage). Electronically Signed: Art Franks MD at 14:05 EST , Service support , Assessment/Plan All Active Problems Pulmonary embolism (Acute) Pneumonia (Acute) RECOMMENDATIONS: 1. Transition from continuous heparin infusion to Xarelto or Eliquis. 2. Wean supplemental oxygen as tolerated. 3. Transition antibiotics to p.o. Levaquin to complete a 7-day treatment course. 4. Perform walking oximetry study prior to consideration for discharge from the hospital. 5. Check MRSA screen. 6. The patient should follow-up in the pulmonary medicine clinic within 2 weeks of his discharge from the hospital. IMPRESSIONS: 1. Acute hypoxic respiratory insufficiency Multifactorial in etiology with bilateral pulmonary emboli and presumptive community-acquired pneumonia contributing. Continue to wean supplemental oxygen to maintain saturations at or above 90%. Encourage incentive spirometer use and mobilize patient as tolerated. Recommend transitioning patient to Levaquin to complete a 7-day treatment course of antibiotics. The patient's continuous heparin infusion can be transitioned either to Xarelto or Eliquis from my perspective. Perform walking oximetry study prior to consideration for discharge from the hospital. The patient will need to follow-up in the pulmonary medicine clinic within 2 weeks of his discharge from the hospital. This note was generated with [employer] dictation software. It may contain incorrect words, spelling, and punctuation that were not noted in checking the note before signing. Code Visit Inpatient E&M: 28487 Init Hosp L2
--- NOTE | 2018-10-01 12:28 | PCM.PROGNOTE ---
<Zachary Doherty - Last Filed: 10/01/18 12:28> Patient Problems: Active and Suspected Problems Pulmonary embolism (Acute) Pneumonia (Acute) - Physical Exam General: Alert, Oriented x3, Cooperative HEENT: Atraumatic, PERRLA, EOMI, Normocephalic Neck: Supple, No JVD, Negative Carotid Bruits Lungs: Rales Cardiovascular: Regular rate, No murmurs Abdomen: Bowel Sounds Present, Soft, Non Tender Extremities: No edema, Capillary Refill Less than 3 Seconds Skin: No rashes, No breakdown Musculoskeletal: No Tenderness to Palpation of Joints or Extremities Neurological: Cranial nerves II-XII grossly intact Psych/Mental Status: Normal Affect, Appropriate, Alert and oriented to time, place, person, mood and affect Vital Signs Temp Pulse Resp BP Pulse Ox 97.9 F 83 24 H 146/81 H 86 10/01/18 11:00 10/01/18 11:00 10/01/18 11:00 10/01/18 11:00 10/01/18 11:00 Oxygen Flow Rate (L/min) 2 Oxygen Delivery Method Nasal Cannula Weight: 244 lb 7.882 oz Body Mass Index (BMI) 39.4 Intake and Output for Last 24 Hours 09/29/18 09/30/18 10/01/18 23:59 23:59 23:59 Intake Total 655.2 / 655.2 1763 / 1763 522 / 522 Balance 655.2 / 655.2 1763 / 1763 522 / 522 Microbiology Past 72 Hours 09/29/18 12:52 Blood Culture - Preliminary Blood Culture (Wb) - Anticubital Left No growth in 48 hours. 09/29/18 12:45 Blood Culture - Preliminary Blood Culture (Wb) - Anticubital Right No growth in 48 hours. 09/30/18 23:43 Streptococcus pneumoniae Antigen (M - Final Urine, Clean Catch 09/30/18 23:43 Legionella Antigen - Final Urine, Clean Catch Laboratory Tests Past 24 Hrs 09/30/18 10/01/18 10/01/18 18:45 01:05 08:35 WBC 12.5 H RBC 4.62 Hgb 13.5 Hct 40.3 MCV 87.2 MCH 29.2 MCHC 33.5 RDW 13.5 RDW Differential 42.9 Plt Count 289 MPV 10.0 Immature Gran % (Auto) 0.300 Neut % (Auto) 76.3 H Lymph % (Auto) 14.1 L [place] % (Auto) 8.6 Eos % (Auto) 0.5 Baso % (Auto) 0.2 Absolute Neuts (auto) 9.6 H Absolute Lymphs (auto) 1.77 Total Counted Not Reportable APTT 57.5 H 38.6 H 10/01/18 08:35 WBC RBC Hgb Hct MCV MCH MCHC RDW RDW Differential Plt Count MPV Immature Gran % (Auto) Neut % (Auto) Lymph % (Auto) [place] % (Auto) Eos % (Auto) Baso % (Auto) Absolute Neuts (auto) Absolute Lymphs (auto) Total Counted APTT 64.0 H Medical Necessity - Tobacco Use Smoking Status: Never smoker Assessment/Plan All Active Problems Pulmonary embolism (Acute) Pneumonia (Acute) 1. BL PE's - heparin. Concern for hemorrhage on radiographs, however no hemoptysis, small drop in hgb. Continue heparin and trend H/H, watch for hemoptysis. -Plan to transition to OAC at DC. -Significant family hx of clots in dad and aunt, that warrants work up as outpatient. This appears to be unprovoked, no recent injury, no recent travel or sedentary behavior, no androgen/estrogen use, no smoking. -Check Echo -tsh/mag normal. -D/w Pulmonology (consulted today), switch to levaquin, continue 7 days of total therapy. 2. Acute sepsis 2/2 BL Pna - continue unasyn, azithro. Check sputum cx, urine antigens, blood culutres. Fever ongoing. WBC bump. Now afebrile. 3. HTN - trend DVT ppx: Heparin drip DC planning: home when stable, ambulatory pulse ox tomorrow. Likely needs home O2. PO OAC at discharge. This patient was seen by Zachary Doherty PA-C under the supervision of Dr. Juarez <Sorin Juarez - Last Filed: 10/01/18 13:47> - Physical Exam Vital Signs Temp Pulse Resp BP Pulse Ox 97.8 F 91 27 H 147/79 H 94 10/01/18 12:00 10/01/18 13:00 10/01/18 13:00 10/01/18 13:00 10/01/18 13:00 Oxygen Flow Rate (L/min) 2 Oxygen Delivery Method Nasal Cannula Weight: 110.9 kg Body Mass Index (BMI) 39.4 Intake and Output for Last 24 Hours 09/29/18 09/30/18 10/01/18 23:59 23:59 23:59 Intake Total 655.2 / 655.2 1763 / 1763 1344 / 1344 Balance 655.2 / 655.2 1763 / 1763 1344 / 1344 Microbiology Past 72 Hours 09/29/18 12:52 Blood Culture - Preliminary Blood Culture (Wb) - Anticubital Left No growth in 48 hours. 09/29/18 12:45 Blood Culture - Preliminary Blood Culture (Wb) - Anticubital Right No growth in 48 hours. 09/30/18 23:43 Streptococcus pneumoniae Antigen (M - Final Urine, Clean Catch 09/30/18 23:43 Legionella Antigen - Final Urine, Clean Catch Laboratory Tests Past 24 Hrs 09/30/18 10/01/18 10/01/18 18:45 01:05 08:35 WBC 12.5 H RBC 4.62 Hgb 13.5 Hct 40.3 MCV 87.2 MCH 29.2 MCHC 33.5 RDW 13.5 RDW Differential 42.9 Plt Count 289 MPV 10.0 Immature Gran % (Auto) 0.300 Neut % (Auto) 76.3 H Lymph % (Auto) 14.1 L [place] % (Auto) 8.6 Eos % (Auto) 0.5 Baso % (Auto) 0.2 Absolute Neuts (auto) 9.6 H Absolute Lymphs (auto) 1.77 Total Counted Not Reportable APTT 57.5 H 38.6 H 10/01/18 08:35 WBC RBC Hgb Hct MCV MCH MCHC RDW RDW Differential Plt Count MPV Immature Gran % (Auto) Neut % (Auto) Lymph % (Auto) [place] % (Auto) Eos % (Auto) Baso % (Auto) Absolute Neuts (auto) Absolute Lymphs (auto) Total Counted APTT 64.0 H Assessment/Plan This patient was seen in conjunction with Zachary Doherty PA-C . I have independently interviewed and examined the patient and reviewed pertinent historical, laboratory, and other data. Please refer to Zachary Doherty PA-C note for details of this patient's presentation, findings, and recommendations. I have reviewed Zachary Doherty PA-C note and concur with documented findings. In brief, patient is a 58-year-old gentleman in relatively good health who presented with progressive shortness of breath as well as persistent cough of weeks duration. CT of the chest obtained demonstrated Bilateral segmental pulmonary embolism with No CT evidence of right heart strain. He was also found to have multilevel lobar pulmonary infiltrate differential diagnosis include atelectasis versus airspace disease (pneumonia, edema and hemorrhage) patient was started on empiric antibiotic therapy following development of fever 10/01/18: Patient seen still remains ill looking requiring high flow oxygen. Consultation was placed to Dr. White with pulmonary medicine his notes and recommendations reviewed Physical Examination: GENERAL: Appears ill looking HEENT: Atraumatic; moist oral mucosa EYES; Anicteric, Normal Conjunctiva NECK; supple, normal thyroid, no distended JVD. RESPIRATORY: Diminished to auscultation bilaterally, CARDIOVASCULAR: Regular S1 S2, no audible murmurs GI: soft, non-tender, normoactive bowel sounds, : No Renal angle tenderness; EXTREMITIES: No edema, no clubbing, no cyanosis. NEURO: Awake; no lateralizing signs. PSYCH; Normal affect Assessment: 1. Acute unprovoked bilateral segmental pulmonary embolism currently on heparin and switched to Eliquis starting 10/01/2018 2. Multi lobar pulmonary infiltrate? Pulmonary infarct with patient developing fever patient was treated empirically as a case of pneumonia 3. Obesity with BMI of 39.5 4. Essential hypertension Recommendations: 1. I have discussed the results of my overview and impressions with the patient 2. Options for management were reviewed Code Visit Inpatient E&M: 28772 Subs Hosp L3
[2018-10-01] MEDS: 0.9% NaCl Peripheral Flush Adult/Peds IV ×2 (13:11→21:49)
--- NOTE | 2018-10-01 14:34 | CASEMGMT ---
Per Ninfa LOVE, pt's would like to speak with CM. This RN CM to room and pt's went home to nap. Per family, will be back in the am and this RN CM will check in with her at that time. Audelia LOVE CM
[2018-10-01] MEDS: levoFLOXacin IV 750 MG/150 ML BAG 100 MG IV (15:15)
[2018-10-01] MEDS: APIXABAN 5 MG TABLET 10 MG PO ×2 (15:15→21:48)
[2018-10-01 16:58] LABS: M R Staph aureus DNA By PCR Negative (Negative); Probe Check PASS; Specimen Processing Control PASS
[2018-10-02] VITALS (15 sets, daily range): BP systolic 135–150; BP diastolic 89–96; PULSE 76–93; RESP 16–20; TEMP 36.4–37.1; O2SAT 88–97
[2018-10-02 07:48] LABS: Absolute Lymphocyte Count 1.43 X10^3/ul (0.83-4.51); Absolute Neutrophil Count 6.3 X10^3/uL (2.0-7.7); Basophil# 0.02 X10^3/uL; Basophil% 0.2 % (0-1); Eosinophil# 0.07 X10^3/uL; Eosinophils% 0.8 % (0-5); Hematocrit 39.5 % (40-54); Hemoglobin 13.2 g/dl (13.0-16.5); Lymphocyte # 1.43 X10^3/ul (4.0); Lymphocyte % 16.1 % (19-41); Mean Corp Hgb Conc 33.4 g/gl (32-36); Mean Corpuscular Hgb 29.3 pg (27.0-32.0); Mean Corpuscular Volume 87.8 fL (80-94); Mean Platelet Vol. 10.4 fl (6.2-12.0); Monocyte# 1.06 X10^3/uL; Neutrophil # 6.27 X10^3/uL (2.7-7.7); Neutrophil % 70.7 % (47-70); Platelet Count 285 K/mm3 (150-450); RBC Distribution Width CV 13.4 % (11.6-14.6); RBC Distribution Width SD 42.7 fl (35.1-43.9); White Blood Count 8.9 K/mm3 (4.4-11.0)
[2018-10-02 07:59] LABS: POSITIVE COUNT NO; POSITIVE DIFFERENTIAL NO; POSITIVE MORPHOLOGY NO
[2018-10-02] MEDS: 0.9% NaCl Peripheral Flush Adult/Peds IV (10:09)
[2018-10-02] MEDS: levoFLOXacin IV 750 MG/150 ML BAG 100 MG IV (10:09)
[2018-10-02] MEDS: APIXABAN 5 MG TABLET 10 MG PO ×2 (10:09→20:58)
[2018-10-02] MEDS: guaiFENesin 1,200 MG Tablet 1200 MG PO ×2 (10:09→20:58)
[2018-10-02] MEDS: Menthol/Lanolin/Calamine/Znox 113 GM Tube 1 APPLIC TOPICAL (10:15)
--- NOTE | 2018-10-02 14:09 | CASEMGMT ---
IVAN CHADWICK NOTE: Pt may need Oxygen on discharge. To room to talk with pt. Pt has no preference of DME company. States prefers the mini portable O2 tanks. Aware day of discharge they will bring the portable tank in on wheels but then can request Mini tanks thereafter. *CM to follow for home oxygen needs. Will need repeat home oxygen qualification testing done within 24 hrs of discharge. Doreen MENDOZA RN CM
--- NOTE | 2018-10-02 14:35 | PN_ITS ---
<Zachary Doherty - Last Filed: 10/02/18 14:31> Patient Problems: Active and Suspected Problems Pulmonary embolism (Acute) Pneumonia (Acute) Subjective: Pt complains of generalized weakness. Some CP with deep breathing. Lightly productive cough. No Blood or rust sputum. No fever or chills. SOB with exertion still. - Physical Exam General: Alert, Oriented x3, Cooperative HEENT: Atraumatic, PERRLA, EOMI, Normocephalic Neck: Supple, No JVD, Negative Carotid Bruits Lungs: Diminished, Rales Cardiovascular: Regular rate, No murmurs Abdomen: Bowel Sounds Present, Soft, Non Tender Extremities: No edema, Capillary Refill Less than 3 Seconds Skin: No rashes, No breakdown Musculoskeletal: No Tenderness to Palpation of Joints or Extremities Neurological: Cranial nerves II-XII grossly intact Psych/Mental Status: Normal Affect, Appropriate, Alert and oriented to time, place, person, mood and affect Vital Signs Temp Pulse Resp BP Pulse Ox 98.1 F 93 18 150/96 H 88 10/02/18 10:00 10/02/18 11:00 10/02/18 10:00 10/02/18 10:00 10/02/18 13:00 Oxygen Flow Rate (L/min) 2.5 Oxygen Delivery Method Nasal Cannula Weight: 244 lb 7.882 oz Body Mass Index (BMI) 39.4 Intake and Output for Last 24 Hours 09/30/18 10/01/18 10/02/18 23:59 23:59 23:59 Intake Total 1763 / 1763 1866 / 1866 320 / 320 Balance 1763 / 1763 1866 / 1866 320 / 320 Microbiology Past 72 Hours 10/01/18 18:05 Gram Stain - Final Sputum, Expectorated/Coughed 09/29/18 12:52 Blood Culture - Preliminary Blood Culture (Wb) - Anticubital Left No growth in 48 hours. 09/29/18 12:45 Blood Culture - Preliminary Blood Culture (Wb) - Anticubital Right No growth in 48 hours. 09/30/18 23:43 Streptococcus pneumoniae Antigen (M - Final Urine, Clean Catch 09/30/18 23:43 Legionella Antigen - Final Urine, Clean Catch Laboratory Tests Past 24 Hrs 10/01/18 10/02/18 13:20 07:22 WBC 8.9 RBC 4.50 L Hgb 13.2 Hct 39.5 L MCV 87.8 MCH 29.3 MCHC 33.4 RDW 13.4 RDW Differential 42.7 Plt Count 285 MPV 10.4 Immature Gran % (Auto) 0.200 Neut % (Auto) 70.7 H Lymph % (Auto) 16.1 L [place] % (Auto) 12.0 H Eos % (Auto) 0.8 Baso % (Auto) 0.2 Absolute Neuts (auto) 6.3 Absolute Lymphs (auto) 1.43 Total Counted Not Reportable MRSA (PCR) Negative Medical Necessity - Tobacco Use Smoking Status: Never smoker Assessment/Plan All Active Problems Pulmonary embolism (Acute) Pneumonia (Acute) 1. BL PE's - heparin. Concern for hemorrhage on radiographs, however no hemoptysis, small drop in hgb. Continue heparin and trend H/H, watch for hemoptysis. -Eliquis at [place]. -Significant family hx of clots in dad and aunt, that warrants work up as outpatient. This appears to be unprovoked, no recent injury, no recent travel or sedentary behavior, no androgen/estrogen use, no smoking. -Echo on chart. -tsh/mag normal. -Pulm following. 2. Acute sepsis 2/2 BL Pna - continue levaquin with goal of 7 days of therapy. WBC improved. Afebrile now. Add IS/PEP 3. HTN - trend DVT ppx: Eliquis DC planning: home when stable. Likely needs home O2. PO OAC at discharge. This patient was seen by Zachary Doherty PA-C under the supervision of Dr. Juarez <Sorin Juarez - Last Filed: 10/02/18 14:56> - Physical Exam Vital Signs Temp Pulse Resp BP Pulse Ox 98.1 F 93 18 150/96 H 91 10/02/18 10:00 10/02/18 11:00 10/02/18 10:00 10/02/18 10:00 10/02/18 13:00 Oxygen Flow Rate (L/min) [ 2 AMBULATION with Oxygen] Oxygen Flow Rate (L/min) 2.5 Oxygen Delivery Method Nasal Cannula Weight: 110.9 kg Body Mass Index (BMI) 39.4 Intake and Output for Last 24 Hours 09/30/18 10/01/18 10/02/18 23:59 23:59 23:59 Intake Total 1762 1761865 / 186 320 / 320 Balance 1762 1761865 / 1865 320 / 320 Microbiology Past 72 Hours 10/01/18 18:05 Gram Stain - Final Sputum, Expectorated/Coughed 09/29/18 12:52 Blood Culture - Preliminary Blood Culture (Wb) - Anticubital Left No growth in 48 hours. 09/29/18 12:45 Blood Culture - Preliminary Blood Culture (Wb) - Anticubital Right No growth in 48 hours. 09/30/18 23:43 Streptococcus pneumoniae Antigen (M - Final Urine, Clean Catch 09/30/18 23:43 Legionella Antigen - Final Urine, Clean Catch Laboratory Tests Past 24 Hrs 10/01/18 10/02/18 13:20 07:22 WBC 8.9 RBC 4.50 L Hgb 13.2 Hct 39.5 L MCV 87.8 MCH 29.3 MCHC 33.4 RDW 13.4 RDW Differential 42.7 Plt Count 285 MPV 10.4 Immature Gran % (Auto) 0.200 Neut % (Auto) 70.7 H Lymph % (Auto) 16.1 L [place] % (Auto) 12.0 H Eos % (Auto) 0.8 Baso % (Auto) 0.2 Absolute Neuts (auto) 6.3 Absolute Lymphs (auto) 1.43 Total Counted Not Reportable MRSA (PCR) Negative Assessment/Plan This patient was seen in conjunction with Zachary Doherty PA-C . I have independently interviewed and examined the patient and reviewed pertinent historical, laboratory, and other data. Please refer to Zachary Doherty PA-C note for details of this patient's presentation, findings, and recommendations. I have reviewed Zachary Doherty PA-C note and concur with documented findings. In brief, patient is a 58-year-old gentleman in relatively good health who presented with progressive shortness of breath as well as persistent cough of weeks duration. CT of the chest obtained demonstrated Bilateral segmental pulmonary embolism with No CT evidence of right heart strain. He was also found to have multilevel lobar pulmonary infiltrate differential diagnosis include atelectasis versus airspace disease (pneumonia, edema and hemorrhage) patient was started on empiric antibiotic therapy following development of fever 10/01/18: Patient seen still remains ill looking requiring high flow oxygen. Consultation was placed to Dr. White with pulmonary medicine his notes and recommendations reviewed 10/02/2018: Patient seen clinical condition appears to be improving. Did discuss with patient about possibility of being discharged home either on 10/03/18 or 10/04/18 Physical Examination: GENERAL: Appears ill looking HEENT: Atraumatic; moist oral mucosa EYES; Anicteric, Normal Conjunctiva NECK; supple, normal thyroid, no distended JVD. RESPIRATORY: Diminished to auscultation bilaterally, CARDIOVASCULAR: Regular S1 S2, no audible murmurs GI: soft, non-tender, normoactive bowel sounds, : No Renal angle tenderness; EXTREMITIES: No edema, no clubbing, no cyanosis. NEURO: Awake; no lateralizing signs. PSYCH; Normal affect Assessment: 1. Acute unprovoked bilateral segmental pulmonary embolism currently on heparin and switched to Eliquis starting 10/01/2018 2. Multi lobar pulmonary infiltrate? Pulmonary infarct with patient developing fever patient was treated empirically as a case of pneumonia 3. Obesity with BMI of 39.5 4. Essential hypertension Recommendations: 1. I have discussed the results of my overview and impressions with the patient 2. Options for management were reviewed Code Visit Inpatient E&M: 58034 Subs Hosp L2
--- NOTE | 2018-10-02 14:52 | PCM.PROGNOTE ---
Patient Problems: Active and Suspected Problems Pulmonary embolism (Acute) Pneumonia (Acute) Subjective: The patient was seen and examined at the bedside this morning. Events from the last 24 hours have been reviewed. The patient is currently afebrile, hemodynamically stable and maintaining appropriate oxygen saturations on 2 L/min via nasal cannula. Objective: The patient's most recent lab work, culture data and imaging studies have all been personally reviewed. CTA chest revealed evidence of bilateral pulmonary emboli along with multifocal pulmonary infiltrates. - Physical Exam General: Alert, Cooperative, No apparent distress HEENT: Atraumatic, PERRLA, Normocephalic Oral: No Gingival or Mucosal Lesions/ Ulcerations Neck: Supple, No Nodes, Trachea Midline Lungs: No rhonchi, No wheeze, Diminished, Rales Cardiovascular: Regular rate, Regular Rhythm, Normal S1, Normal S2, No murmurs Abdomen: Bowel Sounds Present, Soft, Non Tender, Obese Extremities: No clubbing, No cyanosis, No edema Skin: No breakdown Musculoskeletal: No Tenderness to Palpation of Joints or Extremities, No Muscle Wasting Lymphatic: No Cervical, Supraclavicular, or Inguinal Adenopathy Neurological: Cranial nerves II-XII grossly intact, Neuro grossly intact Psych/Mental Status: Normal Affect, Appropriate Vital Signs Temp Pulse Resp BP Pulse Ox 36.7 C 93 18 150/96 H 91 10/02/18 10:00 10/02/18 11:00 10/02/18 10:00 10/02/18 10:00 10/02/18 13:00 Oxygen Flow Rate (L/min) [ 2 AMBULATION with Oxygen] Oxygen Flow Rate (L/min) 2.5 Oxygen Delivery Method Nasal Cannula Weight: 244 lb 7.882 oz Body Mass Index (BMI) 39.4 Intake and Output for Last 24 Hours 09/30/18 10/01/18 10/02/18 23:59 23:59 23:59 Intake Total 1763 / 1763 1866 / 1866 320 / 320 Balance 1763 / 1763 1866 / 1866 320 / 320 Microbiology Past 72 Hours 10/01/18 18:05 Gram Stain - Final Sputum, Expectorated/Coughed 09/29/18 12:52 Blood Culture - Preliminary Blood Culture (Wb) - Anticubital Left No growth in 48 hours. 09/29/18 12:45 Blood Culture - Preliminary Blood Culture (Wb) - Anticubital Right No growth in 48 hours. 09/30/18 23:43 Streptococcus pneumoniae Antigen (M - Final Urine, Clean Catch 09/30/18 23:43 Legionella Antigen - Final Urine, Clean Catch Laboratory Tests Past 24 Hrs 10/01/18 10/02/18 13:20 07:22 WBC 8.9 RBC 4.50 L Hgb 13.2 Hct 39.5 L MCV 87.8 MCH 29.3 MCHC 33.4 RDW 13.4 RDW Differential 42.7 Plt Count 285 MPV 10.4 Immature Gran % (Auto) 0.200 Neut % (Auto) 70.7 H Lymph % (Auto) 16.1 L [place] % (Auto) 12.0 H Eos % (Auto) 0.8 Baso % (Auto) 0.2 Absolute Neuts (auto) 6.3 Absolute Lymphs (auto) 1.43 Total Counted Not Reportable MRSA (PCR) Negative Clinical Impression(s) from Imaging Studies Chest X-Ray 09/29/18 12:45 IMPRESSION: Nonacute portable x-ray examination of the chest. Electronically Signed: Art Franks MD at 13:17 EST , Service support , Chest CTA 09/29/18 13:22 IMPRESSION: 1. Bilateral segmental pulmonary embolism. No CT evidence of right heart strain. 2. Mild cardiomegaly. 3. Multilobar pulmonary infiltrates may represent atelectasis versus airspace disease (pneumonia, edema or hemorrhage). Electronically Signed: Art Franks MD at 14:05 EST , Service support , Medical Necessity - Tobacco Use Smoking Status: Never smoker Assessment/Plan All Active Problems Pulmonary embolism (Acute) Pneumonia (Acute) RECOMMENDATIONS: 1. Continue Eliquis as ordered 2. Wean supplemental oxygen as tolerated. 3. Continue p.o. Levaquin with plans to complete a 7-day treatment course. 4. Perform walking oximetry study prior to consideration for discharge from the hospital. 5. The patient should follow-up in the pulmonary medicine clinic within 2 weeks of his discharge from the hospital. IMPRESSIONS: 1. Acute hypoxic respiratory insufficiency Multifactorial in etiology with bilateral pulmonary emboli and presumptive community-acquired pneumonia contributing. Continue to wean supplemental oxygen to maintain saturations at or above 90%. Encourage incentive spirometer use and mobilize patient as tolerated. Recommend continuing Levaquin to complete a 7-day treatment course of antibiotics. Continue Eliquis as ordered. Perform walking oximetry study prior to consideration for discharge from the hospital. The patient will need to follow-up in the pulmonary medicine clinic within 2 weeks of his discharge from the hospital. This note was generated with [employer] dictation software. It may contain incorrect words, spelling, and punctuation that were not noted in checking the note before signing. Code Visit Inpatient E&M: 45967 Subs Hosp L2
--- NOTE | 2018-10-02 14:56 | PN_ITS ---
Patient Problems: Active and Suspected Problems Pulmonary embolism (Acute) Pneumonia (Acute) Subjective: The patient was seen and examined at the bedside this morning. Events from the last 24 hours have been reviewed. The patient is currently afebrile, hemodynamically stable and maintaining appropriate oxygen saturations on 2 L/min via nasal cannula. Objective: The patient's most recent lab work, culture data and imaging studies have all been personally reviewed. CTA chest revealed evidence of bilateral pulmonary emboli along with multifocal pulmonary infiltrates. - Physical Exam General: Alert, Cooperative, No apparent distress HEENT: Atraumatic, PERRLA, Normocephalic Oral: No Gingival or Mucosal Lesions/ Ulcerations Neck: Supple, No Nodes, Trachea Midline Lungs: No rhonchi, No wheeze, Diminished, Rales Cardiovascular: Regular rate, Regular Rhythm, Normal S1, Normal S2, No murmurs Abdomen: Bowel Sounds Present, Soft, Non Tender, Obese Extremities: No clubbing, No cyanosis, No edema Skin: No breakdown Musculoskeletal: No Tenderness to Palpation of Joints or Extremities, No Muscle Wasting Lymphatic: No Cervical, Supraclavicular, or Inguinal Adenopathy Neurological: Cranial nerves II-XII grossly intact, Neuro grossly intact Psych/Mental Status: Normal Affect, Appropriate Vital Signs Temp Pulse Resp BP Pulse Ox 36.7 C 93 18 150/96 H 91 10/02/18 10:00 10/02/18 11:00 10/02/18 10:00 10/02/18 10:00 10/02/18 13:00 Oxygen Flow Rate (L/min) [ 2 AMBULATION with Oxygen] Oxygen Flow Rate (L/min) 2.5 Oxygen Delivery Method Nasal Cannula Weight: 244 lb 7.882 oz Body Mass Index (BMI) 39.4 Intake and Output for Last 24 Hours 09/30/18 10/01/18 10/02/18 23:59 23:59 23:59 Intake Total 1763 / 1763 1866 / 1866 320 / 320 Balance 1763 / 1763 1866 / 1866 320 / 320 Microbiology Past 72 Hours 10/01/18 18:05 Gram Stain - Final Sputum, Expectorated/Coughed 09/29/18 12:52 Blood Culture - Preliminary Blood Culture (Wb) - Anticubital Left No growth in 48 hours. 09/29/18 12:45 Blood Culture - Preliminary Blood Culture (Wb) - Anticubital Right No growth in 48 hours. 09/30/18 23:43 Streptococcus pneumoniae Antigen (M - Final Urine, Clean Catch 09/30/18 23:43 Legionella Antigen - Final Urine, Clean Catch Laboratory Tests Past 24 Hrs 10/01/18 10/02/18 13:20 07:22 WBC 8.9 RBC 4.50 L Hgb 13.2 Hct 39.5 L MCV 87.8 MCH 29.3 MCHC 33.4 RDW 13.4 RDW Differential 42.7 Plt Count 285 MPV 10.4 Immature Gran % (Auto) 0.200 Neut % (Auto) 70.7 H Lymph % (Auto) 16.1 L [place] % (Auto) 12.0 H Eos % (Auto) 0.8 Baso % (Auto) 0.2 Absolute Neuts (auto) 6.3 Absolute Lymphs (auto) 1.43 Total Counted Not Reportable MRSA (PCR) Negative Clinical Impression(s) from Imaging Studies Chest X-Ray 09/29/18 12:45 IMPRESSION: Nonacute portable x-ray examination of the chest. Electronically Signed: Art Franks MD at 13:17 EST , Service support , Chest CTA 09/29/18 13:22 IMPRESSION: 1. Bilateral segmental pulmonary embolism. No CT evidence of right heart strain. 2. Mild cardiomegaly. 3. Multilobar pulmonary infiltrates may represent atelectasis versus airspace disease (pneumonia, edema or hemorrhage). Electronically Signed: Art Franks MD at 14:05 EST , Service support , Medical Necessity - Tobacco Use Smoking Status: Never smoker Assessment/Plan All Active Problems Pulmonary embolism (Acute) Pneumonia (Acute) RECOMMENDATIONS: 1. Continue Eliquis as ordered 2. Wean supplemental oxygen as tolerated. 3. Continue p.o. Levaquin with plans to complete a 7-day treatment course. 4. Perform walking oximetry study prior to consideration for discharge from the hospital. 5. The patient should follow-up in the pulmonary medicine clinic within 2 weeks of his discharge from the hospital. IMPRESSIONS: 1. Acute hypoxic respiratory insufficiency Multifactorial in etiology with bilateral pulmonary emboli and presumptive community-acquired pneumonia contributing. Continue to wean supplemental oxygen to maintain saturations at or above 90%. Encourage incentive spirometer use and mobilize patient as tolerated. Recommend continuing Levaquin to complete a 7- day treatment course of antibiotics. Continue Eliquis as ordered. Perform walking oximetry study prior to consideration for discharge from the hospital. The patient will need to follow-up in the pulmonary medicine clinic within 2 weeks of his discharge from the hospital. This note was generated with [employer] dictation software. It may contain incorrect words, spelling, and punctuation that were not noted in checking the note before signing. Code Visit Inpatient E&M: 60433 Subs Hosp L2
[2018-10-03] VITALS (7 sets, daily range): BP systolic 144–149; BP diastolic 87–90; PULSE 73–86; RESP 18; TEMP 36.7–36.9; O2SAT 87–96
--- NOTE | 2018-10-03 07:11 | PN_ITS ---
Patient Problems: Active and Suspected Problems Pulmonary embolism (Acute) Pneumonia (Acute) Subjective: The patient was seen and examined at the bedside this morning. Events from the last 24 hours have been reviewed. The patient is currently afebrile, hemodynamically stable and maintaining appropriate oxygen saturations on 2 L/min via nasal cannula. Objective: The patient's most recent lab work, culture data and imaging studies have all been personally reviewed. CTA chest revealed evidence of bilateral pulmonary emboli along with multifocal pulmonary infiltrates. - Physical Exam General: Alert, Cooperative, No apparent distress HEENT: Atraumatic, PERRLA, Normocephalic Oral: No Gingival or Mucosal Lesions/ Ulcerations Neck: Supple, No Nodes, Trachea Midline Lungs: No rhonchi, No wheeze, No rales, Diminished Cardiovascular: Regular rate, Regular Rhythm, Normal S1, Normal S2, No murmurs Abdomen: Bowel Sounds Present, Soft, Non Tender Extremities: No clubbing, No cyanosis, No edema Skin: No breakdown Musculoskeletal: No Tenderness to Palpation of Joints or Extremities Lymphatic: No Cervical, Supraclavicular, or Inguinal Adenopathy Neurological: Cranial nerves II-XII grossly intact, Neuro grossly intact Psych/Mental Status: Alert and oriented to time, place, person, mood and affect Vital Signs Temp Pulse Resp BP Pulse Ox 36.9 C 83 18 144/90 H 96 10/03/18 03:00 10/03/18 03:00 10/03/18 03:00 10/03/18 03:00 10/03/18 03:00 Oxygen Flow Rate (L/min) [ 2 AMBULATION with Oxygen] Oxygen Flow Rate (L/min) 2 Oxygen Delivery Method Nasal Cannula Weight: 244 lb 7.882 oz Body Mass Index (BMI) 39.4 Intake and Output for Last 24 Hours 10/01/18 10/02/18 10/03/18 23:59 23:59 23:59 Intake Total 1866 / 1866 890 / 890 480 / 480 Output Total 2 / 2 Balance 1866 / 1866 888 / 888 480 / 480 Microbiology Past 72 Hours 10/01/18 18:05 Gram Stain - Final Sputum, Expectorated/Coughed 09/29/18 12:52 Blood Culture - Preliminary Blood Culture (Wb) - Anticubital Left No growth in 48 hours. 09/29/18 12:45 Blood Culture - Preliminary Blood Culture (Wb) - Anticubital Right No growth in 48 hours. 09/30/18 23:43 Streptococcus pneumoniae Antigen (M - Final Urine, Clean Catch 09/30/18 23:43 Legionella Antigen - Final Urine, Clean Catch Laboratory Tests Past 24 Hrs 10/02/18 07:22 WBC 8.9 RBC 4.50 L Hgb 13.2 Hct 39.5 L MCV 87.8 MCH 29.3 MCHC 33.4 RDW 13.4 RDW Differential 42.7 Plt Count 285 MPV 10.4 Immature Gran % (Auto) 0.200 Neut % (Auto) 70.7 H Lymph % (Auto) 16.1 L [place] % (Auto) 12.0 H Eos % (Auto) 0.8 Baso % (Auto) 0.2 Absolute Neuts (auto) 6.3 Absolute Lymphs (auto) 1.43 Total Counted Not Reportable Clinical Impression(s) from Imaging Studies Chest X-Ray 09/29/18 12:45 IMPRESSION: Nonacute portable x-ray examination of the chest. Electronically Signed: Art Franks MD at 13:17 EST , Service support , Chest CTA 09/29/18 13:22 IMPRESSION: 1. Bilateral segmental pulmonary embolism. No CT evidence of right heart strain. 2. Mild cardiomegaly. 3. Multilobar pulmonary infiltrates may represent atelectasis versus airspace disease (pneumonia, edema or hemorrhage). Electronically Signed: Art Franks MD at 14:05 EST , Service support , Medical Necessity - Tobacco Use Smoking Status: Never smoker Assessment/Plan All Active Problems Pulmonary embolism (Acute) Pneumonia (Acute) RECOMMENDATIONS: 1. Continue Eliquis as ordered 2. Wean supplemental oxygen as tolerated. 3. Continue p.o. Levaquin with plans to complete a 7-day treatment course. 4. Perform walking oximetry study prior to consideration for discharge from the hospital. 5. The patient should follow-up in the pulmonary medicine clinic within 2 weeks of his discharge from the hospital. IMPRESSIONS: 1. Acute hypoxic respiratory insufficiency Multifactorial in etiology with bilateral pulmonary emboli and presumptive community-acquired pneumonia contributing. Continue to wean supplemental oxygen to maintain saturations at or above 90%. Encourage incentive spirometer use and mobilize patient as tolerated. Recommend continuing Levaquin to complete a 7- day treatment course of antibiotics. Continue Eliquis as ordered. Perform walking oximetry study prior to consideration for discharge from the hospital. The patient will need to follow-up in the pulmonary medicine clinic within 2 weeks of his discharge from the hospital. This note was generated with [employer] dictation software. It may contain incorrect words, spelling, and punctuation that were not noted in checking the note before signing. Code Visit Inpatient E&M: 36564 Subs Hosp L2
[2018-10-03] MEDS: APIXABAN 5 MG TABLET 10 MG PO (09:09)
[2018-10-03] MEDS: levoFLOXacin IV 750 MG/150 ML BAG 100 MG IV (09:09)
[2018-10-03] MEDS: guaiFENesin 1,200 MG Tablet 1200 MG PO (09:09)
[2018-10-03] MEDS: 0.9% NaCl Peripheral Flush Adult/Peds IV (09:10)
--- NOTE | 2018-10-03 12:10 | PCM.DC ---
- Discharge Diagnoses Current Active Problems: Current Active and Chronic Problems Pulmonary embolism (Acute) Pneumonia (Acute) HTN (hypertension) (Chronic) You will use the following diet at home:: No restrictions Discharge Activity: Return to Normal Activity Allergies/Adverse Reactions: Allergies No Known Allergies Allergy (Verified 09/29/18 12:08) Medications to take at Discharge Albuterol IH (ProAir) [Proair Hfa] 1 - 2 puff INHALATION Q6H PRN 09/29/18 Bisoprol/Hydrochlorothiazide [Ziac 5/6.25 MG (Beta Elizabeth)] 1 tab PO DAILY@1500 09/29/18 Virtussin 10 ml PO Q6H PRN 09/29/18 Acetaminophen [Tylenol Tablet] 650 mg PO Q6H PRN PRN tablet 10/03/18 Apixaban [Eliquis] 5 mg PO BID #120 tablet 10/03/18 Lactobacillus Acidophilus [Acidophilus] 1 tablet PO DAILY #30 tablet 10/03/18 levoFLOXacin tablet [Levaquin tablet] 750 mg PO DAILY@0600 #5 tablet 10/03/18 The following prescriptions were given: Apixaban [Eliquis] 5 mg PO BID #120 tablet Lactobacillus Acidophilus [Acidophilus] 1 tablet PO DAILY #30 tablet levoFLOXacin tablet [Levaquin tablet] 750 mg PO DAILY@0600 #5 tablet Primary Care Physician: Jarrett Bliss DO [Primary Care Provider] - Please follow up with your Primary Care Physician in: [place] 5-7 DAYS Test Results: Test results from this visit will be discussed in further detail at your follow-up appointment, if applicable. Please Follow Up With: Simon White DO When: IN 2-4 WEEKS Proposed Discharge Date: 10/03/18
--- NOTE | 2018-10-03 12:13 | DCINST_ITS ---
- Discharge Diagnoses Current Active Problems: Current Active and Chronic Problems Pulmonary embolism (Acute) Pneumonia (Acute) HTN (hypertension) (Chronic) You will use the following diet at home:: No restrictions Discharge Activity: Return to Normal Activity Allergies/Adverse Reactions: Allergies No Known Allergies Allergy (Verified 09/29/18 12:08) Medications to take at Discharge Albuterol IH (ProAir) [Proair Hfa] 1 - 2 puff INHALATION Q6H PRN 09/29/18 Bisoprol/Hydrochlorothiazide [Ziac 5/6.25 MG (Beta Elizabeth)] 1 tab PO DAILY@1500 09/29/18 Virtussin 10 ml PO Q6H PRN 09/29/18 Acetaminophen [Tylenol Tablet] 650 mg PO Q6H PRN PRN tablet 10/03/18 Apixaban [Eliquis] 5 mg PO BID #120 tablet 10/03/18 Lactobacillus Acidophilus [Acidophilus] 1 tablet PO DAILY #30 tablet 10/03/18 levoFLOXacin tablet [Levaquin tablet] 750 mg PO DAILY@0600 #5 tablet 10/03/18 The following prescriptions were given: Apixaban [Eliquis] 5 mg PO BID #120 tablet Lactobacillus Acidophilus [Acidophilus] 1 tablet PO DAILY #30 tablet levoFLOXacin tablet [Levaquin tablet] 750 mg PO DAILY@0600 #5 tablet Primary Care Physician: Jarrett Bliss DO [Primary Care Provider] - Please follow up with your Primary Care Physician in: [place] 5-7 DAYS Test Results: Test results from this visit will be discussed in further detail at your follow- up appointment, if applicable. Please Follow Up With: Simon White DO When: IN 2-4 WEEKS Proposed Discharge Date: 10/03/18
--- NOTE | 2018-10-03 12:15 | DS.PCM_ITS ---
Discharge Date and Diagnosis - Problem List Patient Problems: Active and Suspected Problems Pulmonary embolism (Acute) Pneumonia (Acute) Date of Admission: 09/29/18 Date of Discharge: 10/03/18 - Primary Discharge Diagnosis Active and Suspected Problems Pulmonary embolism (Acute) Pneumonia (Acute) - Secondary Discharge Diagnosis Chronic Problems HTN (hypertension) (Chronic) Hospital Course and Treatment Imaging Results: Clinical Impression(s) from Imaging Studies Chest X-Ray 09/29/18 12:45 IMPRESSION: Nonacute portable x-ray examination of the chest. Electronically Signed: Art Franks MD at 13:17 EST , Service support , Chest CTA 09/29/18 13:22 IMPRESSION: 1. Bilateral segmental pulmonary embolism. No CT evidence of right heart strain. 2. Mild cardiomegaly. 3. Multilobar pulmonary infiltrates may represent atelectasis versus airspace disease (pneumonia, edema or hemorrhage). Electronically Signed: Art Franks MD at 14:05 EST , Service support , Summary of Care Provided: brief, patient is a 58-year-old gentleman in relatively good health who presented with progressive shortness of breath as well as persistent cough of w eeks duration. CT of the chest obtained demonstrated Bilateral segmental pulmonary embolism with No CT evidence of right heart strain. He was also found to have multilevel lobar pulmonary infiltrate differential diagnosis include atelectasis versus airspace disease (pneumonia, edema and hemorrhage) patient was started on empiric antibiotic therapy following development of fever Assessment: 1. Acute unprovoked bilateral segmental pulmonary embolism currently on heparin and switched to Eliquis starting 10/01/2018. Patient was discharged home on Eliquis he was informed he needed to be on Eliquis indefinitely since his pulmonary embolism was unprovoked. Patient was seen in consultation by Dr. Simon White during patient stay plan is for patient to follow-up with him as well as with his PCP 2. Multi lobar pulmonary infiltrate? Pulmonary infarct with patient developing fever patient was treated empirically as a case of pneumonia 3. Obesity with BMI of 39.5 4. Essential hypertension In Patient Problems: Active and Suspected Problems Pulmonary embolism (Acute) Pneumonia (Acute) Objective: Physical Examination: GENERAL: Appears ill looking HEENT: Atraumatic; moist oral mucosa EYES; Anicteric, Normal Conjunctiva NECK; supple, normal thyroid, no distended JVD. RESPIRATORY: Diminished to auscultation bilaterally, CARDIOVASCULAR: Regular S1 S2, no audible murmurs GI: soft, non-tender, normoactive bowel sounds, : No Renal angle tenderness; EXTREMITIES: No edema, no clubbing, no cyanosis. NEURO: Awake; no lateralizing signs. PSYCH; Normal affect - Physical Exam Vital Signs Temp Pulse Resp BP Pulse Ox 98.0 F 86 18 149/87 H 93 10/03/18 09:00 10/03/18 11:05 10/03/18 09:00 10/03/18 09:00 10/03/18 09:21 Oxygen Flow Rate (L/min) [ 2 AMBULATION with Oxygen] Oxygen Flow Rate (L/min) [ 0 AMBULATING on Room Air] Oxygen Flow Rate (L/min) [At 0 REST on Room Air] Oxygen Flow Rate (L/min) 2 Oxygen Delivery Method Room Air Weight: 110.9 kg Body Mass Index (BMI) 39.4 Intake and Output for Last 24 Hours 10/01/18 10/02/18 10/03/18 23:59 23:59 23:59 Intake Total 1866 / 1866 890 / 890 1224 / 1224 Output Total 2 / 2 Balance 1866 / 1866 888 / 888 1224 / 1224 Microbiology Past 72 Hours 10/01/18 18:05 Gram Stain - Final Sputum, Expectorated/Coughed 09/29/18 12:52 Blood Culture - Preliminary Blood Culture (Wb) - Anticubital Left No growth in 48 hours. 09/29/18 12:45 Blood Culture - Preliminary Blood Culture (Wb) - Anticubital Right No growth in 48 hours. 09/30/18 23:43 Streptococcus pneumoniae Antigen (M - Final Urine, Clean Catch 09/30/18 23:43 Legionella Antigen - Final Urine, Clean Catch Discharge Diet: No Restrictions Discharge Activity: Return to Normal Activity Home Medications: Medications to take at Discharge Albuterol IH (ProAir) [Proair Hfa] 1 - 2 puff INHALATION Q6H PRN 09/29/18 Bisoprol/Hydrochlorothiazide [Ziac 5/6.25 MG (Beta Elizabeth)] 1 tab PO DAILY@1500 09/29/18 Virtussin 10 ml PO Q6H PRN 09/29/18 Acetaminophen [Tylenol Tablet] 650 mg PO Q6H PRN PRN tablet 10/03/18 Apixaban [Eliquis] 5 mg PO BID #120 tablet 10/03/18 Lactobacillus Acidophilus [Acidophilus] 1 tablet PO DAILY #30 tablet 10/03/18 levoFLOXacin tablet [Levaquin tablet] 750 mg PO DAILY@0600 #5 tablet 10/03/18 Following Prescrptions Were Given to Patient: Apixaban [Eliquis] 5 mg PO BID #120 tablet Lactobacillus Acidophilus [Acidophilus] 1 tablet PO DAILY #30 tablet levoFLOXacin tablet [Levaquin tablet] 750 mg PO DAILY@0600 #5 tablet Primary Care Physician: Jarrett Bliss DO [Primary Care Provider] - Please follow up with your Primary Care Physician in: IN 5-7 DAYS Please Follow Up With: Simon White DO When: IN 2-4 WEEKS Disposition: Home Minutes spent on discharge:: 40 Patient Condition:: Stable Medical Necessity - Tobacco Use Smoking Status: Never smoker Meaningful Use Info Meaningful Use Diagnoses (Choose all that apply): VTE - VTE Anticoag overlap given w/in hospital stay or rx'd at sd?: No Pt receive overlap for 5 days?: No Reason overlap not ordered, prescribed, or given for 5 days: Treatment Not Indicated Code Visit Inpatient E&M: 16648 Disch Hosp
--- NOTE | 2018-10-03 12:44 | CASEMGMT ---
Per Mohinder LOVE, pt does not qualify for home oxygen at this time. Pt will be sent home on Eliquis and script already e-scribed to [facility] previously. Call to [facility] and per faraz, pt's co-pay will be $104. This RN CM to room to notify pt and provide pt with [place] $10co-pay card at this time. Explanation of card done at this time and pt voices understanding. Pt voices no further questions/concerns/needs at this time. Pt awaiting dispo. Audelia LOVE CM
--- NOTE | 2018-10-03 13:21 | PHA.DC.MC ---
Pharmacy Service has performed discharge medication reconciliation and counseling for this patient. The patient's discharge medication list was reviewed for discrepancies and discrepancies were resolved. The patient was counseled on the following discharge medications and changes in medications for homegoing were reviewed. The Reason for Use, instructions for use, and potential side effects were reviewed for all new medications. The patient's questions regarding all of their medications were answered. The patient was able to verbally demonstrate an understanding of their discharge medications. Home Medications Albuterol IH (ProAir) [Proair Hfa] 1 - 2 puff INHALATION Q6H PRN 09/29/18 Bisoprol/Hydrochlorothiazide [Ziac 5/6.25 MG (Beta Elizabeth)] 1 tab PO DAILY@1500 09/29/18 Virtussin 10 ml PO Q6H PRN 09/29/18 Acetaminophen [Tylenol Tablet] 650 mg PO Q6H PRN PRN tablet 10/03/18 Apixaban [Eliquis] 5 mg PO BID #120 tablet 10/03/18 Lactobacillus Acidophilus [Acidophilus] 1 tablet PO DAILY #30 tablet 10/03/18 levoFLOXacin tablet [Levaquin tablet] 750 mg PO DAILY@0600 #5 tablet 10/03/18
--- OUTSIDE RECORDS SUMMARY | 2019-01-01 13:26 | XMS RPT_ITS ---
:1960 Author Organization OHIP Support Name Relationship Address Phone [employer] Unavailable [address] + [address] [place] [address] LUZ APODACA Unavailable [address] + [place] [address] [employer] Unavailable [address] + [address] [place] [address] LUZ APODACA Unavailable [address] + [place] [address] [employer] Unavailable [address] + [address] [place] [address] ZBIGNIEW APODACAISSA Unavailable [address] + [place] [address] [employer] Unavailable [address] + [address] [place] [address] ZBIGNIEW APODACAISSA Unavailable [address] + [place] [address] [employer] Unavailable [address] + [address] [place] [address] ZBIGNIEW APODACAISSA Unavailable [address] + [place] [address] [employer] Unavailable [address] + [address] [place] [address] ZBIGNIEW APODACAISSA Unavailable [address] + [place] [address] [employer] Unavailable [address] + [address] [place] [address] [employer] Unavailable [address] + [address] [place] [address] ZBIGNIEW APODACAISSA Unavailable [address] + [place] [address] [employer] Unavailable [address] + [address] [place] [address] PAULIE, LUZ Unavailable [address] + [place] [address] [employer] Unavailable [address] + [address] [place] [address] PAULIE, LUZ Unavailable [address] + [place] [address] [employer] Unavailable [address] + [address] [place] [address] PAULIE, LUZ Unavailable [address] + [place] [address] [employer] Unavailable [address] + [address] [place] [address] PAULIE, LUZ Unavailable [address] + [place] [address] [employer] Unavailable [address] + [address] [place] [address] PAULIE, LUZ Unavailable [address] + [place] [address] [employer] Unavailable [address] + [address] [place] [address] PAULIE, LUZ Unavailable [address] + [place] [address] [employer] Unavailable [address] + [address] [place] [address] PAULIE, LUZ Unavailable [address] + [place] [address] [employer] Unavailable [address] + [address] [place] [address] PAULIE, LUZ Unavailable [address] + [place] [address] [employer] Unavailable [address] + [address] [place] [address] PAULIE, LUZ Unavailable [address] + [place] [address] [employer] Unavailable [address] + [address] [place] [address] LUZ APODACA Unavailable [address] + [place] [address] Care Team Providers Name Role Phone Jarrett Bliss Primary Care Unavailable Riley Snyderolas F Admitting Unavailable Sorin Juarez Attending Unavailable Simon White D.O. Consulting Unavailable Andréstsonis, Eduardo F Admitting Unavailable Kotsonis Eduardo F Attending Unavailable [facility] Unavailable Kotsonis, Eduardo F Consulting Unavailable Lillian, Eduardo F Admitting [facility]available [facility] Sorin Juarez Consulting Unavailable Sorin Juarez Attending Unavailable Lillian, Eduardo F Admitting Unavailable Simon White D.O. Attending [facility] Unavailable Simon White D.O. Consulting Unavailable Sorin Juarez Consulting Unavailable Riley Snyderolas F Admitting Unavailable Ruthy [facility] Unavailable Simon White D.O. Consulting Unavailable Sorin Juarez Attending Unavailable Sorin Juarez Consulting Unavailable Lillian, Eduardo F Admitting Unavailable [facility] Unavailable Simon White D.O. Consulting Unavailable Sorin Juarez Attending Unavailable Sorin Juarez Consulting Unavailable Lillian, Eduardo F Admitting Unavailable Simon White D.O. Attending [facility] Un[facility] Simon White D.O. Consulting Unavailable Sorin Juarez Consulting Unavailable Riley Snyderolas F Admitting Unavailable Sorin Juarez Attending [facility] Unavailable Simon White D.O. Consulting Unavailable Sorin Juarez Consulting Unavailable Lillian, Eduardo F Admitting Unavailable Simon White D.O. Attending [facility] Unavailable Simon White D.O. Consulting Unavailable Sorin Juarez Consulting Unavailable Stanislav Reese Attending Unavailable Sorin Juarez Referring Unavailable Sherri Posadas Attending Unavailable Jarrett Bliss Referring Unavailable Stanislav Reese Attending Unavailable Marivelonis, Eduardo F Referring Unavailable Sherri Posadas Attending Unavailable Sherri Poasdas Referring Unavailable Jarrett Bliss Primary Care Unavailable Sherri Posadas Attending Unavailable Sherri Posadas Referring Unavailable Jarrett Bliss Primary Care Unavailable Rafael Craig Attending Unavailable Sorin Juarez Referring Unavailable Hayden Renee Attending Unavailable Sherri Posadas Referring Unavailable Hayden Renee Attending Unavailable Sherri Posadas Referring Unavailable PROBLEMS PROBLEMS DATE TYPE CONDITION / CODE ATTENDING STATUS SOURCE 11/01/2018 Unknown R06.02 - Shortness of Hayden Renee Active [facility] / [facility] R06.02(ICD-10) Hospital Repository 10/23/2018 Unknown G47.33 - Obstructive Katharina Active [place] sleep apnea (adult) [facility]ri [facility]ped[facility] Hospital G47.33(ICD-10) Repository 10/23/2018 Unknown R94.31 - Abnormal Hugh, Capay Active [place] electrocardiogram [facility] [ECG] [EKG] / Hospital R94.31(ICD-10) Repository 10/23/2018 Unknown I10 - Essential Hugh, Stanislav Active [place] (primary) hypertension Community / I10(ICD-10) Hospital Repository PROCEDURES PROCEDURES No Procedure Records FoundRESULTS RESULTS 6 MINUTE WALK TEST Observed: 10/26/2018 Status: F Source: [place] 5:51 AM [facility] REPOSITORY [facility] Pulmonary Services/Neurology [address] [place] [address] MR#: [id number] Acct: [id number] Name: DANY APODACA Rep #: [id number] : 1960 58 From: Hayden Renee MD Referring Dr: Sherri Posadas MEAT CARRIER Date: Ordering Dr: Sex: M C Location: PSN PSN 6 Minute Walk Test - 6 Minute Walk Test 6 Minute Walk Test: 6 Minute Walk Test PSN:6-Minute Walk Test Start: 10/25/18 09:14 Freq: Status: Active Protocol: RESP.6MINW Document 10/25/18 09:14 [facility] (Rec: 10/25/18 09:17 [facility] [id number]) 6 Minute Walk Test Date Performed 10/25/18 Time Performed 09:00 Height 5 ft 6 in Weight: 110.677 kg Weight in Pounds 244.[address]: Sherri Posadas Assistive device used: None Pre-test Oxygen Delivery Method Room Air Pulse Ox (%) 97 Pulse Rate (60-100 beats/min) 75 Dyspnea Bairon Scale (0-10) 0 1st minute Oxygen Delivery Method Room Air Pulse Ox (%) 96 Pulse Rate (60-100 beats/min) 89 Dyspnea Bairon Scale (0-10) 0 2nd minute Oxygen Delivery Method Room Air Pulse Ox (%) 95 Pulse Rate (60-100 beats/min) 92 Dyspnea Bairon Scale (0-10) 1 3rd minute Oxygen Delivery Method Room Air Pulse Ox (%) 93 Pulse Rate (60-100 beats/min) 95 Dyspnea Bairon Scale (0-10) 1 4th minute Oxygen Delivery Method Room Air Pulse Ox (%) 94 Pulse Rate (60-100 beats/min) 88 Dyspnea Bairon Scale (0-10) 1 5th minute Oxygen Delivery Method Room Air Pulse Ox (%) 93 Pulse Rate (60-100 beats/min) 93 Dyspnea Bairon Scale (0-10) 1 6th minute Oxygen Delivery Method Room Air Pulse Ox (%) 95 Pulse Rate (60-100 beats/min) 94 Dyspnea Bairon Scale (0-10) 1 Post-test Oxygen Delivery Method Room Air Pulse Ox (%) 97 Pulse Rate (60-100 beats/min) 73 Dyspnea Bairon Scale (0-10) 0 Full Laps Walked 21 Partial Lap, Number of Tiles Walked 12 Total Distance Walked (ft) 1251 - Interpretation Interpretation: The patient was able to ambulate 1251 feet over the course of 6 minutes on room air with no assistive devices or breaks. Patient's oxygen urth was noted at 93%. These findings are consistent with a normal walking oximetry. - Recommendations Recommendations: No supplemental oxygen is indicated at this time. 10/26/18 0551 <Electronically signed by Hayden Renee MD> Date Hayden Renee MD CC: Date Dictated: 10/25/18 1444 Date Transcribed: 10/25/181443 Machine Welder: Hayden Renee MD Signed PULMONARY FUNCTION Observed: 10/25/2018 Status: F Source: [place] REPORT COMP 5:54 AM [facility] REPOSITORY [facility] Pulmonary Services/Neurology [facility] [place] [address] MR#: [id number] Acct: [id number] Name: DANY APODACA Rep #: [id number] : 1960 58 From: Hayden Renee MD Referring Dr: Sherri Posadas NP Status: REG CLI Ordering Dr: Date: Location: [facility] Sex: M C COMPLETE PULMONARY FUNCTION TEST INTERPRETATION Brief HPI: Patient is a 58 year old male, currently under the care of Sherri Posadas, who presents to [facility] for complete pulmonary function tests secondary to diagnosis of dyspnea. Respiratory therapist reports good effort and reproducible results. Interpretation: Forced expiration spirometry shows no large airways obstructive ventilatory defect with an FEV1 of 77% predicted. There is no significant bronchodilator response by strict ATS criteria. Spirograms are of good quality and plateau normally. The respiratory flow volume loop shows a normal pattern. Lung volumes by body plethysmography show a normal total lung capacity at 5.14 L, 89% predicted. All other lung volumes are within normal limits. Diffusion capacity by carbon monoxide is decreased at 66% predicted. The airway resistance is normal. No previous pulmonary function tests were available for review. Impression: Isolated reduction in diffusion capacity consistent with a pulmonary vascular disorder 10/25/18 0554 <Electronically signed by Hayden Renee MD> Date Hayden Renee MD CC: Hayden Renee MD; Sherri Bliss DO Date Dictated: 10/24/18 1414 Date Transcribed: 10/24/181413 Machine Welder: EMIGDIO Signed PULMONARY VISIT REPORT Observed: 10/24/2018 Status: F Source: [place] 1:57 PM COUNTS INCLUDE 234 BEDS AT THE [facility] H[facility] REPOSITORY [facility] Pulmonary Medicine of [address] [place] [address] OFFICE VISIT Date of Service: 10/23/18 MR#: [id number] Acct: [id number] Name: DANY APODACA Rep #: [id number] : 1960 Provider: Sherri Posadas Age/Sex: 58/M Location: [facility] Status: Signed Assessment AND Plan 1. Shortness of breath R06.02 Plan Improving. Plan to evaluate diffusing lung capacity with a complete pulmonary function test, will also evaluate for possible exertional hypoxia with a simple pulmonary stress test. Patient will then follow-up with Dr. White in approximately 6 weeks to discuss test results and continue to develop a plan. No change in maintenance inhalers or medications at this time. Continue anticoagulation. Orders Orders: 2. Acute pulmonary embolism without acute cor pulmonale, unspecified pulmonary embolism type I26.99 Plan Stable. Possibly improving given symptomatic resolution of odd sensation in right chest. Continue Eliquis. Follow-up with Dr. White in 6 weeks. 3. Pneumonia of both lungs due to infectious organism, unspecified part of lung J18.9 Plan No further signs or symptoms of continued pneumonia. No repeat in antibiotic's. No additional testing at this time. Follow-up with Dr. White in 6 weeks. 4. DEV (obstructive sleep apnea) G47.33 Plan Several symptoms consistent with obstructive sleep apnea. Patient is agreeable to testing and treatment if necessary. Lengthy discussion about the pathophysiology of obstructive sleep apnea and its relationship to his recent diagnosis of pulmonary embolism. If present, the patient has been advised that he should wear the device at least 4 hours nightly 1 set up, but ultimately any time spent sleeping. He conveys understanding and is agreeable to this plan. Follow-up with Dr. White in 6 weeks, at the time they can discuss sleep study results. Orders Orders: Plan Detail Follow Up 6 Weeks (DMB) [facility] hospital f/u: Chief Complaint: dyspnea on exertion HPI Comments Details: This is a 58 year old M, currently under the care of Jarrett Bliss DO, here to follow up after a recent hospitalization at [facility], from September 29 - October 03, 2018 for pneumonia and acute pulmonary embolism. The hospital stay was non-complicated. 14 pages of hospital documentation was reviewed, and found to be significant for chest x-ray completed on September 29 normal, CTA of the chest completed on September 29 showed bilateral segmental pulmonary embolism, no CT of right heart strain, mild cardiomegaly, multilobar pulmonary infiltrates which may represent atelectasis versus airspace disease (pneumonia, edema or hemorrhage) Upon discharge, the patient completed a 7 day course of Levaquin and started on Eliquis twice daily. Today, he presents to the office ambulatory, on room air and accompanied by his . He states he is feeling improved but has not gotten 100% back to baseline. He continues to have shortness of breath on exertion, has a cough that is productive of clear sputum. Occasionally he reports a.m. odd sensation on his right chest that has been present since the pulmonary embolism was diagnosed. He states that the sensation is decreasing in both intensity and frequency which she attributes to the use of the anticoagulation. He has not needed to use his rescue inhaler recently. He denies any wheezing or chest tightness. He denies any hemoptysis. He is not experience any fever, chills or body aches. He has never completed pulmonary function testing. He has never been diagnosed with asthma or COPD. He is never a smoker. He denies any recent travel, no episodes of prolonged immobility and therefore the pulmonary embolism are thought to be unprovoked. His reports that he snores, denies any episodes of witnessed apneas. He does not feel rested upon arising in the morning. He does occasionally nap. He does fall asleep while watching TV easily. He denies any frequent headaches but does often have dry mouth in the morning. Intake Vital Signs10/23/18 Body Mass Index (BMI) 41.5 10/23/18 Height 5 ft 6 in 10/23/18 Weight: 244 lb 10/23/18 Body Mass Index (BMI) 39.4 Intake Visit Reasons: hospital f/u Hospital Pharmacy Technician Required: No Accompanied by: Allergies No Known Allergies Allergy (Verified 10/23/18 08:33) Medications Albuterol IH (ProAir) [Proair Hfa] 1 - 2 puff INHALATION Q6H PRN 09/29/18 [History Confirmed 10/23/18] Bisoprol/Hydrochlorothiazide [Ziac 5/6.25 MG (Beta Elizabeth)] 1 tab PO DAILY@1500 09/29/18 [History Confirmed 10/23/18] Apixaban [Eliquis] 5 mg PO BID #120 tab 10/03/18 [Rx Confirmed 10/23/18] Lactobacillus Acidophilus [Acidophilus] 1 tab PO DAILY #30 tab 10/03/18 [Rx Confirmed 10/23/18] PFSH Medical History Pulmonary embolism (Acute) Pneumonia (Acute) HTN (hypertension) (Chronic) Surgical History No history of previous surgery (Resolved) Family History Father CVA (cerebral vascular accident) Pulmonary embolism Social History household members: spouse housing: house current occupational status: employed current occupation: [employer] pets and animals: Yes pets and animals: cat(s) Smoking Status: Never smoker second hand exposure: Yes alcohol intake: never substance use type: does not use Review of Systems Const CONSTITUTIONAL: Negative anorexia, body ache, chills, daytime sleepiness, fever(s), night sweats, oral thrush, stops breathing during sleep, weight loss, sleeping in chair, fatigue, weight loss, weight gain, frequent colds, seasonal allergies, other, headache(s) or orthopnea EETM Ear Nose Throat Mouth: Positive hearing normal; negative hard of hearing, hoarseness, dry mouth in morning, change in vision, itchy eyes, eye pain, swallowing Difficulty, ear pain, nose bleed, headache(s), mouth pain, nasal congestion, nasal discharge, post nasal drip, sinus pain, sinus pressure, sore throat or other Cardio Cardiovascular: Positive edema Location: lower extremity; negative chest pain, chest pain at rest, chest pain with activity, irregular heart rhythm, shortness of breath when lying down, palpitations, murmur or other Resp Respiratory: Positive as per HPI, shortness of breath shortness of breath: Positive with activity and cough cough: Positive productive color: Positive clear; negative pain with cough, wheezing, chest congestion, chest tightness, pain on inspiration, inhalers, increase use of rescue inhalers, snoring, apnea or other Gastro Gastrointestional: Negative bloody stools, change in appetite, difficulty swallowing, reflux, hematemesis, melena stool, loose stool, constipation or other Genitourinary: Negative blood in urine, nocturia, pain with urination or other Musc Musculoskeletal: Negative body pain, back pain, neck pain or other Skin/Breast Skin/Breast: Negative dry skin, itching, rash, unusual bruising, breast lump or other Neuro Neurological: Negative restless legs, confusion, weakness or other Psych Psychocological: Negative abnormal sleep pattern, anxiety, thoughts of hurting self/others, hopelessness or other Lymph Lymphatic: Negative easy bleeding, easy bruising, swollen lymph nodes or other Exam Const Constitutional: Positive conversant, cooperative, in no acute respiratory distress, healthy appearing, well developed, well nourished, good hygiene and obese Head Head: Positive normocephalic and atraumatic; negative cyanosis of lips/distal nose Eyes Eye: Positive clear conjunctiva; negative nystagmus or scleral abnormality Ears Ear: Positive hearing normal and external ears normal; negative hard of hearing Nose Nose: Positive external nose normal and no nasal discharge; negative epistaxis Mouth Mouth: Positive oral mucosae normal, no lesions and crowded posterior oropharynx; negative post nasal drip, malodorous breath or oral thrush present Mallampati Score: III: Mallampati Score Neck Neck: Positive normal visual inspection, full ROM, trachea midline and thick neck; negative lymphadenopathy, JVD or tender Chest Wall Chest: Positive normal inspection of the chest and symmetric chest movement; negative increased A/P diameter Resp lung sounds: Positive clear to auscultation, good air exchange, normal expiratory time and normal respiratory effort; negative diminished, wheezes, rhonchi, rales, dullness to percussion or wheeze present on forced exhalation Cardio Cardiac: Positive regular rate, regular rhythm, S1 normal and S2 normal; negative murmur GI GI: Positive normal to inspection and obese; negative distended Genitourinary: Positive deferred Musc Musculoskeletal: Positive steady gait and ROM normal; negative kyphosis or scoliosis Skin Pulmonary Skin Exam: Positive intact; negative rash Pulses Pulse: Yes pulses normal x4 extremities Extremities Extremities: Yes capillary refill normal, No clubbing, No cyanosis, No edema Neuro Neurologic: Yes conversant, Yes no focal neuro deficits, Yes normal concentration, Yes understands questions, Yes cooperative, Yes normal cognition, Yes normal coordination, No tremor Lymph Lymphatic: No lymphadenopathy, No tenderness, No cervical adenopathy Psych Appearance: Positive grossly normal, eye contact and well kempt Mental Status: Positive mental status grossly normal Mood: Positive congruent mood Affect: Positive normal affect Coding Level of Care Code Off vis,est,level 4 Diagnoses Shortness of breath R06.02 Acute pulmonary embolism without acute cor pulmonale, unspecified pulmonary embolism type I26.99 Acute cor pulmonale presence: without acute cor pulmonale Chronicity: acute Pulmonary embolism type: unspecified Pneumonia of both lungs due to infectious organism, unspecified part of lung J18.9 Laterality: bilateral Lung location: unspecified part of lung Pneumonia type: due to unspecified organism EDV (obstructive sleep apnea) G47.33 10/24/18 1357 <Electronically signed by Sherri ALDRICH> Date Sherri ALDRICH Cosigner Signature: Date (if applicable) CC: Jarrett Bliss DO 12 LEAD ELECTROCARDIOGRAM Observed: 10/04/2018 Status: F Source: [place] 2:16 PM [facility] REPOSITORY [facility] Cardiovascular Services [address] [place] [id number] Lead EKG 09/30/18 1539 MR#: [id number] Acct: [id number] Name: DANY APODACA Rep #: [id number] : 1960 58 From: Stanislav Reese MD Attending Dr: Sorin Juarez MD Status: DIS IN Ordering Dr: Sorin Juarez MD Date: 09/30/18 Location: [facility] Sex: M C Admitted: 09/29/18 Test Reason : Blood Pressure : / mmHG Vent. Rate : 080 BPM Atrial Rate : 080 BPM P-R Int : 150 ms QRS Dur : 104 ms QT Int : 422 ms P-R-T Axes : 049 -04 035 degrees QTc Int : 486 ms Normal sinus rhythm Prolonged QT Abnormal ECG When compared with ECG of 29-SEP-2018 20:09, MANUAL COMPARISON REQUIRED, DATA IS UNCONFIRMED Confirmed by STANISLAV REESE MD ([id number]), features editor AURELIA GARDNER ([id number]) on 10/04/2018 2:15:58 PM Referred By: DEXTER Confirmed By:STANISLAV REESE MD 10/04/18 1416 Date Stanislav Reese MD CC: Sorin Juarez MD; Jarrett Bliss DO Signed DISCHARGE SUMMARY Observed: 10/03/2018 Status: F Source: [place] 12:15 PM [facility] REPOSITORY [facility] Medical Records Department [address] [place] [address] Discharge Summary 10/03/18 1213 MR#: [id number] Acct: [id number] Name: DANY APODACA Rep #: [id number] : 1960 58 From: Sorin Juarez MD PCP: Jarrett Bliss DO Status: ADM IN Y Location: [place] [address] Discharge Date and Diagnosis - Problem List Patient Problems: Active and Suspected Problems Pulmonary embolism (Acute) Pneumonia (Acute) Date of Admission: 09/29/18 Date of Discharge: 10/03/18 - Primary Discharge Diagnosis Active and Suspected Problems Pulmonary embolism (Acute) Pneumonia (Acute) - Secondary Discharge Diagnosis Chronic Problems HTN (hypertension) (Chronic) Hospital Course and Treatment Imaging Results: Clinical Impression(s) from Imaging Studies Chest X-Ray 09/29/18 12:45 IMPRESSION: Nonacute portable x-ray examination of the chest. Electronically Signed: Art Franks MD at 13:17 EST , Service support , Chest CTA 09/29/18 13:22 IMPRESSION: 1. Bilateral segmental pulmonary embolism. No CT evidence of right heart strain. 2. Mild cardiomegaly. 3. Multilobar pulmonary infiltrates may represent atelectasis versus airspace disease (pneumonia, edema or hemorrhage). Electronically Signed: Art Franks MD at 14:05 EST , Service support , Summary of Care Provided: brief, patient is a 58-year-old gentleman in relatively good health who presented with progressive shortness of breath as well as persistent cough of weeks duration. CT of the chest obtained demonstrated Bilateral segmental pulmonary embolism with No CT evidence of right heart strain. He was also found to have multilevel lobar pulmonary infiltrate differential diagnosis include atelectasis versus airspace disease (pneumonia, edema and hemorrhage) patient was started on empiric antibiotic therapy following development of fever Assessment: 1. Acute unprovoked bilateral segmental pulmonary embolism currently on heparin and switched to Eliquis starting 10/01/2018. Patient was discharged home on Eliquis he was informed he needed to be on Eliquis indefinitely since his pulmonary embolism was unprovoked. Patient was seen in consultation by Dr. Simon White during patient stay plan is for patient to follow-up with him as well as with his PCP 2. Multi lobar pulmonary infiltrate? Pulmonary infarct with patient developing fever patient was treated empirically as a case of pneumonia 3. Obesity with BMI of 39.5 4. Essential hypertension In Patient Problems: Active and Suspected Problems Pulmonary embolism (Acute) Pneumonia (Acute) Objective: Physical Examination: GENERAL: Appears ill looking HEENT: Atraumatic; moist oral mucosa EYES; Anicteric, Normal Conjunctiva NECK; supple, normal thyroid, no distended JVD. RESPIRATORY: Diminished to auscultation bilaterally, CARDIOVASCULAR: Regular S1 S2, no audible murmurs GI: soft, non-tender, normoactive bowel sounds, : No Renal angle tenderness; EXTREMITIES: No edema, no clubbing, no cyanosis. NEURO: Awake; no lateralizing signs. PSYCH; Normal affect - Physical Exam Vital Signs Temp Pulse Resp BP Pulse Ox 98.0 F 86 18 149/87 H 93 10/03/18 09:00 10/03/18 11:05 10/03/18 09:00 10/03/18 09:00 10/03/18 09:21 Oxygen Flow Rate (L/min) [ 2 AMBULATION with Oxygen] Oxygen Flow Rate (L/min) [ 0 AMBULATING on Room Air] Oxygen Flow Rate (L/min) [At 0 REST on Room Air] Oxygen Flow Rate (L/min) 2 Oxygen Delivery Method Room Air Weight: 110.9 kg Body Mass Index (BMI) 39.4 Intake and Output for Last 24 Hours Intake Total 1865 / 1866 890 / 890 1224 / 1224 Output Total 2 / 2 Balance 1865 / 1866 888 / 888 1224 / 1224 Microbiology Past 72 Hours 10/01/18 18:05 Gram Stain - Final Sputum, Expectorated/Coughed Discharge Diet: No Restrictions Discharge Activity: Return to Normal Activity Home Medications: Medications to take at Discharge Albuterol IH (ProAir) [Proair Hfa] 1 - 2 puff INHALATION Q6H PRN 09/29/18 Bisoprol/Hydrochlorothiazide [Ziac 5/6.25 MG (Beta Elizabeth)] 1 tab PO DAILY@1500 09/29/18 Virtussin 10 ml PO Q6H PRN 09/29/18 Acetaminophen [Tylenol Tablet] 650 mg PO Q6H PRN PRN tablet 10/03/18 Apixaban [Eliquis] 5 mg PO BID #120 tablet 10/03/18 Lactobacillus Acidophilus [Acidophilus] 1 tablet PO DAILY #30 tablet 10/03/18 levoFLOXacin tablet [Levaquin tablet] 750 mg PO DAILY@0600 #5 tablet 10/03/18 Following Prescrptions Were Given to Patient: Apixaban [Eliquis] 5 mg PO BID #120 tablet Lactobacillus Acidophilus [Acidophilus] 1 tablet PO DAILY #30 tablet levoFLOXacin tablet [Levaquin tablet] 750 mg PO DAILY@0600 #5 tablet Primary Care Physician: Jarrett Bliss DO [Primary Care Provider] - Please follow up with your Primary Care Physician in: IN 5- 7 DAYS Please Follow Up With: Simon White DO When: IN 2-4 WEEKS Disposition: Home Minutes spent on discharge:: 40 Patient Condition:: Stable Medical Necessity - Tobacco Use Smoking Status: Never smoker Meaningful Use Info Meaningful Use Diagnoses (Choose all that apply): VTE - VTE Anticoag overlap given w/in hospital stay or rx'd at dc?: No Pt receive overlap for 5 days?: No Reason overlap not ordered, prescribed, or given for 5 days: Treatment Not Indicated Code Visit Inpatient E AND M: 40266 Disch Hosp 10/03/18 1215 <Electronically signed by Sorin Juarez MD> Date Sorin Juarez MD Cosigner Signature (if applicable): Date CC: Sorin Juarez MD; Jarrett Bliss DO Signed DISCHARGE INSTRUCTION Observed: 10/03/2018 Status: F Source: [place] 12:13 PM [facility] REPOSITORY [facility] Medical Records Department [address] [place] [address] Instructions for Home/Discharge Instructions 10/03/18 1210 MR#: [id number] Acct: [id number] Name: DANY APODACA Rep #: [id number] : 1960 58 From: Sorin Juarez MD PCP: Jarrett Bliss DO Status: ADM IN - Discharge Diagnoses Current Active Problems: Current Active and Chronic Problems Pulmonary embolism (Acute) Pneumonia (Acute) HTN (hypertension) (Chronic) You will use the following diet at home:: No restrictions Discharge Activity: Return to Normal Activity Allergies/Adverse Reactions: Allergies No Known Allergies Allergy (Verified 09/29/18 12:08) Medications to take at Discharge Albuterol IH (ProAir) [Proair Hfa] 1 - 2 puff INHALATION Q6H PRN 09/29/18 Bisoprol/Hydrochlorothiazide [Ziac 5/6.25 MG (Beta Elizabeth)] 1 tab PO DAILY@1500 09/29/18 Virtussin 10 ml PO Q6H PRN 09/29/18 Acetaminophen [Tylenol Tablet] 650 mg PO Q6H PRN PRN tablet 10/03/18 Apixaban [Eliquis] 5 mg PO BID #120 tablet 10/03/18 Lactobacillus Acidophilus [Acidophilus] 1 tablet PO DAILY #30 tablet 10/03/18 levoFLOXacin tablet [Levaquin tablet] 750 mg PO DAILY@0600 #5 tablet 10/03/18 The following prescriptions were given: Apixaban [Eliquis] 5 mg PO BID #120 tablet Lactobacillus Acidophilus [Acidophilus] 1 tablet PO DAILY #30 tablet levoFLOXacin tablet [Levaquin tablet] 750 mg PO DAILY@0600 #5 tablet Primary Care Physician: Jarrett Bliss DO [Primary Care Provider] - Please follow up with your Primary Care Physician in: [place] 5- 7 DAYS Test Results: Test results from this visit will be discussed in further detail at your follow-up appointment, if applicable. Please Follow Up With: Simon White DO When: IN 2-4 WEEKS Proposed Discharge Date: 10/03/18 10/03/18 1213 <Electronically signed by Sorin Juarez MD> Date Sorin Juarez MD CC: Simon White D.O.; Jarrett Bliss DO 12 LEAD ELECTROCARDIOGRAM Observed: 10/02/2018 Status: F Source: [place] 3:57 PM [facility] REPOSITORY [facility] Cardiovascular Services [address] [place] [address] 12 Lead EKG 09/29/182008 MR#: [id number] Acct: [id number] Name: DANY APODACA Rep #: [id number] : 1960 58 From: Stanislav Reese MD Attending Dr: Sorin Juarez MD Status: ADM IN Ordering Dr: Eduardo Snyder MD Date: 09/29/18 Location: [facility] Sex: M C Admitted: 09/29/18 Test Reason : ARRYTHMIA Blood Pressure : / mmHG Vent. Rate : 075 BPM Atrial Rate : 075 BPM P-R Int : 162 ms QRS Dur : 110 ms QT Int : 438 ms P-R-T Axes : 049 008 043 degrees QTc Int : 489 ms Normal sinus rhythm Inferior infarct , age undetermined Abnormal ECG When compared with ECG of 29-SEP-2018 12:42, MANUAL COMPARISON REQUIRED, DATA IS UNCONFIRMED Confirmed by HUGH GONZALEZ, STANISLAV ([id number]), features editor AURELIA GARDNER ([id number]) on 10/02/2018 3:57:22 PM Referred By: DR SNYDER Confirmed By:STANISLAV REESE MD 10/02/18 1557 Date Stanislav Reese MD CC: Sorin Juarez MD; Eduardo Snyder MD; Jarrett Bliss DO Signed 12 LEAD ELECTROCARDIOGRAM Observed: 10/02/2018 Status: F Source: [place] 3:09 PM [facility] REPOSITORY [facility] Cardiovascular Services [address] [place] [address] 12 Lead EKG 09/29/18 1242 MR#: [id number] Acct: [id number] Name: DANY APODACA Rep #: [id number] : 1960 58 From: Stanislav Reese MD Attending Dr: Sorin Juarez MD Status: ADM IN Ordering Dr: Ashia Molina MD Date: 09/29/18 Location: [facility] Sex: M C Admitted: 09/29/18 Test Reason : SOB Blood Pressure : / mmHG Vent. Rate : 082 BPM Atrial Rate : 082 BPM P-R Int : 150 ms QRS Dur : 100 ms QT Int : 394 ms P-R-T Axes : 037 103 047 degrees QTc Int : 460 ms Normal sinus rhythm Rightward axis Cannot rule out Inferior infarct , age undetermined Abnormal ECG Confirmed by HUGH GONZALEZ, STANISLAV ([id number]), features editor AURELIA GARDNER ([id number]) on 10/02/2018 3:08:35 PM Referred By: MOISE Confirmed By:STANISLAV REESE MD 10/02/18 1508 Date Stanislav Reese MD CC: Sorin Juarez MD; Ashia Molina MD; Jarrett Bliss DO Signed CBC W/DIFF, AUTOMATED Collected: 10/02/2018 Status: F Source: [place] 7:22 AM [facility] REPOSITORY TYPE CODE TESTS RESULT OUT OF RANGE REFERENCE UNITS LAB L100.1000 4.4-11.0 K/mm3 Normal WBC 8.9 LAB L100.1200 4.6-6.2 M/mm3 Low RBC 4.50 LAB L100.1300 13.0-16.5 g/dl Normal HGB 13.2 LAB L100.1400 40-54 % Low HCT 39.5 LAB L100.1500 80-94 fL Normal MCV 87.8 LAB L100.1600 27.0-32.0 pg Normal MCH 29.3 LAB L100.1700 32-36 g/gl Normal MCHC 33.4 LAB L100.1810 11.6-14.6 % Normal RDW CV 13.4 LAB L100.1820 35.1-43.9 fl Normal RDW SD 42.7 LAB L100.1900 150-450 K/mm3 Normal PLT 285 LAB L100.2000 6.2-12.0 fl Normal MPV 10.4 LAB L100.2100 47-70 % High NEUT% 70.7 LAB L100.2200 19-41 % Low LY% 16.1 LAB L100.2300 0-10 % High MONO% 12.0 LAB L100.2400 0-5 % Normal EO% 0.8 LAB L100.2500 0-1 % Normal BASO% 0.2 LAB L100.2550 0.0-0.9 % Normal IM GRAN % 0.200 Result Comment: IG% - Immature Granulocytes (promyelocytes, myelocytes and metamyelocytes) > 1% indicates that a LEFT SHIFT is Present. LAB L100.2620 2.0-7.7 X10 3/uL Normal Absolute Neut 6.3 LAB L100.2720 0.83-4.51 X10 3/ul Normal Absolute Lymph 1.43 Performed By: #### L100.0100 #### [facility] [place], [place], [address] Observed: 10/01/2018 Status: F Source: [place] CULTURE, SPUTUM 6:05 PM [facility] REPOSITORY List Antibiotics Last 48 Hours? zithromax, Unasyn, levaquin Gram Stain Acceptable Specimen? Yes (<25 Epithelial cells per/lpf) Gram Stain 2+ White Blood Cells 1+ Epithelial cells 1+ Gram positive rods Resp. Culture Mixed normal respiratory lupis. No Haemophilus, Streptococcus pneumoniae, beta-hemolytic Streptococcus or Staphylococcus aureus isolated. Performed By: #### M100.0800 #### [facility] [place], [address] CONSULTATION Observed: 10/01/2018 Status: F Source: [place] 1:38 PM [facility] REPOSITORY [facility] Medical Records Department [address] [place] [address] Consultation 10/01/18 1217 MR#: [id number] Acct: [id number] Name: DANY APODACA Rep #: [id number] : 1960 58 From: Simon White DO PCP: Jarrett Bliss DO Status: ADM IN Y Location: [place] [address]-1 Reason for Consult Date of Consultation: 10/01/18 Reason for Consultation: Acute hypoxic respiratory insufficiency History of Present Illness: The patient is a 58-year-old male, with a history as outlined below, who presented to the emergency department on September 29 with complaints of progressive shortness of breath. The patient reports that his symptoms worsened in the 3-4 days leading up to his admission. He was evaluated by his primary care provider for the aforementioned symptoms and was provided with an albuterol inhaler due to a presumptive viral infection. The patient denies any history of COPD or asthma. He additionally reports no prior smoking history. The patient denies a history of previous venous thrombolic disease. He does report recent immobility due to feeling under the weather over the last several weeks. On presentation to the emergency department, the patient was noted to be afebrile, tachypneic and hypoxic on room air. Initial laboratory evaluation revealed no evidence of a leukocytosis. Chemistry profile was largely unrevealing. A CTA chest was obtained and revealed evidence of bilateral pulmonary emboli along with multifocal pulmonary infiltrates. The patient was subsequently started on antibiotics along with a heparin drip. He was admitted to the progressive care unit for ongoing management. Past Medical History Past Medical History (Chronic Problems): Chronic Problems HTN (hypertension) (Chronic) Allergies No Known Allergies Allergy (Verified 09/29/18 12:08) Home Medications: Ambulatory Orders Medication Instructions Recorded Albuterol IH (ProAir) [Proair Hfa] 1 - 2 puff INHALATION Q6H PRN 09/29/18 Surgical History: no surgical history Lives: Spouse/ Significant Other Smoking Status: Never smoker Alcohol: None Drugs: None - *Family History Maternal History Items: Cancer, Heart Disease, - - No history of DVTs or PEs Paternal History Items: Cancer, Heart Disease, - - No history of DVTs or PEs Review of Systems Constitutional: Reports: Malaise, Weakness, Fatigue Eyes: Denies: Blurred vision, Double vision HEENT: Denies: Head Aches, Sinus Congestion, Sinus Drainage Cardiovascular: Denies: Chest Pain, Palpitations Respiratory: Reports: Cough, Shortness of Breath Gastrointestinal: Denies: Abdominal Pain, Nausea, Vomiting Genitourinary: Denies: Dysuria Musculoskeletal: Denies: Joint Pain, Joint Tenderness Skin: Denies: Rash, Wounds Neurological: Denies: Numbness, Tingling, Focal weakness Psychiatric: Denies: Anxiety, Depression, Homicidal Ideations, Suicidal Ideations Hematologic/ Lymphatic: Denies: Easy Bruising, Easy Bleeding Patient Problems: Active and Suspected Problems Pulmonary embolism (Acute) Pneumonia (Acute) Objective: The patient's most recent lab work, culture data and imaging studies have all been personally reviewed. - Physical Exam General: Alert, Cooperative, - - Ill in appearance. Family is present at the bedside. HEENT: Atraumatic, PERRLA, Normocephalic Oral: No Gingival or Mucosal Lesions/ Ulcerations Neck: Supple, No Nodes, Trachea Midline Lungs: Diminished, Rales, - - Poor inspiratory effort Cardiovascular: Regular rate, Regular Rhythm, Normal S1, Normal S2, No murmurs Abdomen: Bowel Sounds Present, Soft, Non Tender, Obese Extremities: No clubbing, No cyanosis, No edema Skin: No breakdown Musculoskeletal: No Tenderness to Palpation of Joints or Extremities Lymphatic: No Cervical, Supraclavicular, or Inguinal Adenopathy Neurological: Cranial nerves II-XII grossly intact, Neuro grossly intact Psych/Mental Status: Flat Affect Vital Signs Temp Pulse Resp BP Pulse Ox 36.6 C 83 24 H 146/81 H 86 10/01/18 11:00 10/01/18 11:00 10/01/18 11:00 10/01/18 11:00 10/01/18 11:00 Oxygen Flow Rate (L/min) 2 Oxygen Delivery Method Nasal Cannula Weight: 244 lb 7.882 oz Body Mass Index (BMI) 39.4 Intake and Output for Last 24 Hours Intake Total 655.2 / 655.2 1763 / 1763 522 / 522 Balance 655.2 / 655.2 1763 / 1763 522 / 522 Microbiology Past 72 Hours 09/29/18 12:52 Blood Culture - Preliminary Blood Culture (Wb) - Anticubital Left No growth in 48 hours. 09/29/18 12:45 Blood Culture - Preliminary Blood Culture (Wb) - Anticubital Right No growth in 48 hours. Laboratory Tests Past 24 Hrs WBC 12.5 H RBC 4.62 Hgb 13.5 Hct 40.3 WBC RBC Hgb Hct MCV MCH MCHC RDW RDW Differential Plt Count MPV Clinical Impression(s) from Imaging Studies Chest X-Ray 09/29/18 12:45 IMPRESSION: Nonacute portable x-ray examination of the chest. Electronically Signed: Art Franks MD at 13:17 EST , Service support , Chest CTA 09/29/18 13:22 IMPRESSION: 1. Bilateral segmental pulmonary embolism. No CT evidence of right heart strain. 2. Mild cardiomegaly. 3. Multilobar pulmonary infiltrates may represent atelectasis versus airspace disease (pneumonia, edema or hemorrhage). Electronically Signed: Art Franks MD at 14:05 EST , Service support , Assessment/Plan All Active Problems Pulmonary embolism (Acute) Pneumonia (Acute) RECOMMENDATIONS: 1. Transition from continuous heparin infusion to Xarelto or Eliquis. 2. Wean supplemental oxygen as tolerated. 3. Transition antibiotics to p.o. Levaquin to complete a 7-day treatment course. 4. Perform walking oximetry study prior to consideration for discharge from the hospital. 5. Check MRSA screen. 6. The patient should follow-up in the pulmonary medicine clinic within 2 weeks of his discharge from the hospital. IMPRESSIONS: 1. Acute hypoxic respiratory insufficiency Multifactorial in etiology with bilateral pulmonary emboli and presumptive community-acquired pneumonia contributing. Continue to wean supplemental oxygen to maintain saturations at or above 90%. Encourage incentive spirometer use and mobilize patient as tolerated. Recommend transitioning patient to Levaquin to complete a 7-day treatment course of antibiotics. The patient's continuous heparin infusion can be transitioned either to Xarelto or Eliquis from my perspective. Perform walking oximetry study prior to consideration for discharge from the hospital. The patient will need to follow-up in the pulmonary medicine clinic within 2 weeks of his discharge from the hospital. This note was generated with [employer]ation software. It may contain incorrect words, spelling, and punctuation that were not noted in checking the note before signing. Code Visit Inpatient E AND M: [id number] Init Hosp L2 10/01/18 1338 <Electronically signed by Simon White DO> Date Simon White DO Cosigner Signature (if applicable): Date CC: Simon White D.O.; Jarrett Bliss DO Signed M R STAPH AUREUS Collected: 10/01/2018 Status: F Source: [place] DNA BY PCR 1:20 PM [facility] REPOSITORY Order Comment: Order Date: 10/01/18 TYPE CODE TESTS RESULT OUT OF RANGE REFERENCE UNITS LAB L8200.1100 Negative Normal MRSA Negative RESULT Performed By: #### L8200.1000 #### [facility] [address] [place], [address] CBC W/DIFF, AUTOMATED Collected: 10/01/2018 Status: F Source: [place] 8:35 AM [facility] REPOSITORY TYPE CODE TESTS RESULT OUT OF RANGE REFERENCE UNITS LAB L100.1000 4.4-11.0 K/mm3 High WBC 12.5 LAB L100.1200 4.6-6.2 M/mm3 Normal RBC 4.62 LAB L100.1300 13.0-16.5 g/dl Normal HGB 13.5 LAB L100.1400 40-54 % Normal HCT 40.3 LAB L100.1500 80-94 fL Normal MCV 87.2 LAB L100.1600 27.0-32.0 pg Normal MCH 29.2 LAB L100.1700 32-36 g/gl Normal MCHC 33.5 LAB L100.1810 11.6-14.6 % Normal RDW CV 13.5 LAB L100.1820 35.1-43.9 fl Normal RDW SD 42.9 LAB L100.1900 150-450 K/mm3 Normal PLT 289 LAB L100.2000 6.2-12.0 fl Normal MPV 10.0 LAB L100.2100 47-70 % High NEUT% 76.3 LAB L100.2200 19-41 % Low LY% 14.1 LAB L100.2300 0-10 % Normal MONO% 8.6 LAB L100.2400 0-5 % Normal EO% 0.5 LAB L100.2500 0-1 % Normal BASO% 0.2 LAB L100.2550 0.0-0.9 % Normal IM GRAN % 0.300 Result Comment: IG% - Immature Granulocytes (promyelocytes, myelocytes and metamyelocytes) > 1% indicates that a LEFT SHIFT is Present. LAB L100.2620 2.0-7.7 X10 3/uL High Absolute Neut 9.6 LAB L100.2720 0.83-4.51 X10 3/ul Normal Absolute Lymph 1.77 Performed By: #### L100.0100 #### [facility] [address] [facility] [place], [place], [address] PARTIAL THROMBOPLAST Collected: 10/01/2018 Status: F Source: [place] TIME 8:35 AM [facility] REPOSITORY TYPE CODE TESTS RESULT OUT OF REFERENCE UNITS RANGE LAB L300.4310 24.1-36.2 Seconds High PTT 64.0 Performed By: #### L300.4310 #### [facility] [facility]. [facility] [id number] PARTIAL THROMBOPLAST Collected: 10/01/2018 Status: F Source: [place] TIME 1:05 AM [facility] REPOSITORY TYPE CODE TESTS RESULT OUT OF REFERENCE UNITS RANGE LAB L300.4310 24.1-36.2 Seconds High PTT 38.6 Performed By: #### L300.4310 #### [facility] [address] [place], [place], [address] Observed: 09/30/2018 Status: F Source: [place] LEGIONELLA ANTIGEN 11:43 PM [facility] URINE REPOSITORY Legionella, UR Legionella Antigen result interpretation: Negative Presumptive negative for Legionella pneumophila serogroup 1 antigen in urine, suggesting no recent or current infection. Legionella Ag, Urine Negative (See interpretation below) Performed By: #### M300.4500 #### [facility] [address] [facility] [place], [address] STREP Observed: 09/30/2018 Status: F Source: [place] PNEUMONIAE ANTIG(UR,CSF) 11:43 PM [facility] REPOSITORY S pneumo Ag [] Negative Urine Presumptive negative for pneumococcal pneumonia, suggesting no current or recent pneumococcal infection. Infection due to S pneumoniae cannot be ruled out since the antigen present in the sample may be below the detection limit of the test. Strep pneumo Test Negative URINE (See interpretation below) Performed By: #### M300.4600 #### [facility] [place], [address] PARTIAL THROMBOPLAST Collected: 09/30/2018 Status: F Source: [place] TIME 6:45 PM [facility] REPOSITORY TYPE CODE TESTS RESULT OUT OF REFERENCE UNITS RANGE LAB L300.4310 24.1-36.2 Seconds High PTT 57.5 Performed By: #### L300.4310 #### [facility] [facility] [place], [address] PARTIAL THROMBOPLAST Collected: 09/30/2018 Status: F Source: [place] TIME 11:18 AM [facility] REPOSITORY TYPE CODE TESTS RESULT OUT OF REFERENCE UNITS RANGE LAB L300.4310 24.1-36.2 Seconds High PTT 41.2 Performed By: #### L300.4310 #### [facility] [place], [address] CBC W/DIFF, AUTOMATED Collected: 09/30/2018 Status: F Source: [place] 4:00 AM [facility] REPOSITORY TYPE CODE TESTS RESULT OUT OF RANGE REFERENCE UNITS LAB L100.1000 4.4-11.0 K/mm3 Normal WBC 10.0 LAB L100.1200 4.6-6.2 M/mm3 Low RBC 4.38 LAB L100.1300 13.0-16.5 g/dl Low HGB 12.9 LAB L100.1400 40-54 % Low HCT 38.4 LAB L100.1500 80-94 fL Normal MCV 87.7 LAB L100.1600 27.0-32.0 pg Normal MCH 29.5 LAB L100.1700 32-36 g/gl Normal MCHC 33.6 LAB L100.1810 11.6-14.6 % Normal RDW CV 13.5 LAB L100.1820 35.1-43.9 fl Normal RDW SD 42.2 LAB L100.1900 150-450 K/mm3 Normal PLT 214 LAB L100.2000 6.2-12.0 fl Normal MPV 10.5 LAB L100.2100 47-70 % High NEUT% 70.2 LAB L100.2200 19-41 % Low LY% 15.5 LAB L100.2300 0-10 % High MONO% 13.2 LAB L100.2400 0-5 % Normal EO% 0.6 LAB L100.2500 0-1 % Normal BASO% 0.2 LAB L100.2550 0.0-0.9 % Normal IM GRAN % 0.300 Result Comment: IG% - Immature Granulocytes (promyelocytes, myelocytes and metamyelocytes) > 1% indicates that a LEFT SHIFT is Present. LAB L100.2620 2.0-7.7 X10 3/uL Normal Absolute Neut 7.0 LAB L100.2720 0.83-4.51 X10 3/ul Normal Absolute Lymph 1.55 Performed By: #### L100.0100 #### [facility] [address] [place], [place], [id number] PARTIAL THROMBOPLAST Collected: 09/30/2018 Status: F Source: [place] TIME 4:00 AM [facility] REPOSITORY TYPE CODE TESTS RESULT OUT OF REFERENCE UNITS RANGE LAB L300.4310 24.1-36.2 Seconds High PTT 49.6 Performed By: #### L300.4310 #### [facility] [address] [facility] [place], [place], [address] BASIC METABOLIC Collected: 09/30/2018 Status: F Source: [place] PROFILE (BMP) 4:00 AM [facility] REPOSITORY TYPE CODE TESTS RESULT OUT OF RANGE REFERENCE UNITS LAB L501.0100 74-106 mg/dL High GLU 113 Result Comment: Fasting Glucose result from 100 to 125 mg/dL suggests IMPAIRED HOMEOSTASIS per A.D.A. criteria. Please note revised GLUCOSE reference range effective 2017. LAB L501.1000 7-18 mg/dL Normal BUN 11 LAB L501.1100 0.70-1.30 mg/dL Normal CREAT,SERUM 1.05 Result Comment: The validity of the calculated GFR AND GFRAA in patients over 70 years has not been determined. Clinical correlation is essential. LAB L501.1110 >60 mL/min Normal EST GFR 78 Result Comment: Non- GFR Calc LAB L501.1115 >60 mL/min Normal EST GFR - AA 94 Result Comment: GFR Calc LAB L501.1255 ml/min Normal Estimated CRCL 70.89 LAB L501.1300 10-20 RATIO Normal BUN/CRE 10.5 LAB L501.2200 8.5-10 mg/dL Low .1 CA 7.9 LAB L501.5300 136-14 mmol/L Normal 5 NA 140 LAB L501.5600 3.5-5. mmol/L Normal 1 K 3.9 LAB L501.5900 98-107 mmol/L Normal CL 105 LAB L501.6100 21.0-3 mmol/L Normal 2.0 CO2 26.0 LAB L501.6200 5-15 Normal GAP 9 Performed By: #### L500.2500 #### [facility] [address] [place], [place], [address] MAGNESIUM Collected: 09/29/2018 Status: F Source: [place] 8:35 PM [facility] REPOSITORY TYPE CODE TESTS RESULT OUT OF RANGE REFERENCE UNITS LAB L501.5200 1.6-2.6 mg/dL Normal MG 2.2 Performed By: #### L501.5200, L501.9520 #### [facility] [address] [place], [address] THYROID STIM HORMONE Collected: 09/29/2018 Status: F Source: [place] (TSH) 8:35 PM [facility] REPOSITORY TYPE CODE TESTS RESULT OUT OF RANGE REFERENCE UNITS LAB L501.9520 0.358-3.74 uIU/mL Normal TSH 0.98 Performed By: #### L501.5200, L501.9520 #### [facility] [address] [place], [place], [address] PARTIAL THROMBOPLAST Collected: 09/29/2018 Status: F Source: [place] TIME 8:35 PM [facility] REPOSITORY Order Comment: JESSICA ASKED TO DRAW BOTH PTT AND MG,TSH AT 2030 TYPE CODE TESTS RESULT OUT OF REFERENCE UNITS RANGE LAB L300.4310 24.1-36.2 Seconds High PTT 51.8 Performed By: #### L300.4310 #### [facility] [address] [place], [address] EMERGENCY DEPARTMENT Observed: 09/29/2018 Status: F Source: [place] SUMMARY 3:42 PM [facility] REPOSITORY [facility] Medical Records Department [address] [place] [address] Emergency Department Summary 09/29/18 1512 MR#: [id number] Acct: [id number] Name: DANY APODACA Rep #: [id number] : 1960 58 From: Ashia Molina MD PCP: Jarrett Bliss DO Status: ADM IN - ER Visit Summary Date of Service: 09/29/18 Chief Complaint: Cough and shortness of breath History of Present Illness: The patient is a 58 M with upper respiratory type symptoms for the past 2 weeks. Patient states he initially had cough with some sputum production, congestion, and wheezing. He was seen by his primary care physician. He was told he had a viral illness and was given an albuterol inhaler and cough syrup. Over the past 1 week he has had increasing shortness of breath. He continues to have fevers. He is no longer bringing up any sputum with his cough. Today but he became significantly short of breath just walking from room to room in his home and his brought him in. Patient does not have smoking history or significant pulmonary condition. Physical Examination: Blood pressure is 150/100, temperature 98.2, heart rate 83, respiratory rate 26, pulse ox 88% on room air. When we enter the room to examine the patient his pulse ox is 85% on room air. This increases to the mid 90s on 2 L nasal cannula. Head and neck examination is grossly unremarkable. Heart is regular rate and rhythm. Lung sounds are diminished at the bases bilaterally. He has scant wheezing noted to the left upper lung. He is tachypneic. Abdomen is soft, obese, nontender. Test Results: EKG is sinus 82 with no sign of acute ischemia. Chest x-ray read by radiology with no evidence of acute disease. CBC and chemistry studies are unremarkable. Lactate is normal. Blood cultures have been drawn. Emergency Department Course and Treatment: On repeat exam temperature has increased to 101. Tylenol has been ordered. CTA of the chest was obtained and does reveal bilateral segmental PEs. There is no CT evidence of right heart strain. Multilobar pulmonary infiltrates may represent atelectasis versus pneumonia versus hemorrhage. Test results are discussed with the patient and at bedside. Because he may have evidence of hemorrhage, Heparin drip and bolus have been ordered so this can be turned off abruptly if he develops hemoptysis. Patient will also be covered with Rocephin and Zithromax for his bronchitis/pneumonia like illness. Treatment Plan: [] Disposition: Admit Impression: 1. Bilateral pulmonary emboli 2. Bronchitis This note was generated with [employer] dictation software. It may contain incorrect words, spelling, and punctuation that were not noted in review of the chart prior to signing ED Disposition - Plan for ED Patient: Chief Complaint: Shortness of Breath What to do if you have Problems For any increased pain, shortness of breath, bleeding, nausea or vomiting, chest pain, or any unexpected problems, contact your Primary Care Provider. Call [facility] ([phone]) or report to the closest Emergency Room. Call 911 if necessary. 09/29/18 1542 <Electronically signed by Ashia Molina MD> Date Ashia Molina MD Cosigner Signature (If Indicated): Date CC: Jarrett Bliss DO HISTORY AND PHYSICAL Observed: 09/29/2018 Status: F Source: [place] EXAM 3:25 PM [facility] REPOSITORY [facility] Medical Records Department [address] [place] [address] History and Physical 09/29/18 1504 MR#: [id number] Acct: [id number] Name: DANY APODACA Rep #: [id number] : 1960 58 From: Eduardo Snyder MD PCP: Jarrett Bliss DO Status: ADM IN Y Location: [place] [id number] Problem List (1) Pulmonary embolism Status: Acute (2) Pneumonia Status: Acute (3) HTN (hypertension) Status: Chronic History of Present Illness Date of Admission: 09/29/18 Chief Complaint: SOB The patient is a 58 year old M with a history of hypertension presents with a 2-week history of shortness of breath. He denies any chest pain. He did go see his primary care physician a few days after this started and he was given an inhaler and told that it was likely a viral infection. He presents today because he was walking from his living room to his kitchen and had to stop usp and hold onto a railing because he was so short of breath. On presentation to the ER, he continues to deny chest pain, lightheadedness, dizziness, fever, chills, however he is endorsing a cough and significant shortness of breath. He was found to be hypoxic on room air to 88% and was started on nasal cannula. CTA of the chest shows bilateral infiltrates that could either be atelectasis, pneumonia, or hemorrhage. Also it demonstrates bilateral pulmonary emboli. Currently he is not tachycardic and therefore unlikely to have significant right-sided heart strain. Of note he says that he has chronic edema because of working that does resolve and his PCP did evaluate him multiple times for possible DVTs in the past. He does not have any recent history of abnormal leg swelling or pain. Also of note he states that he has had a colonoscopy very recently that was negative for any cancer, he did have one polyp removed that was noncancerous. He does not endorse any significant weight loss. Past Medical History Past Medical History (Chronic Problems): Chronic Problems HTN (hypertension) (Chronic) Allergies No Known Allergies Allergy (Verified 09/29/18 12:08) Home Medications: Ambulatory Orders Medication Instructions Recorded Surgical History: no surgical history Lives: Spouse/ Significant Other Smoking Status: Never smoker Alcohol: None Drugs: None - *Family History Maternal History Items: Cancer, Heart Disease, - - No history of DVTs or PEs Paternal History Items: Cancer, Heart Disease, - - No history of DVTs or PEs Review of Systems Constitutional: Denies: Chills, Fever, Weight Change HEENT: Denies: Head Aches, Sinus Congestion, Sinus Drainage Cardiovascular: Reports: Edema. Denies: Chest Pain, Palpitations Respiratory: Reports: Cough, Shortness of Breath, Shortness of breath at rest, Shortness of breath upon exertion. Denies: Hemoptysis, Pleuritic Pain, Sputum production, Wheezing Gastrointestinal: Denies: Abdominal Pain, Nausea, Vomiting Genitourinary: Denies: Dysuria Musculoskeletal: Denies: Joint Pain, Joint Tenderness Skin: Denies: Rash, Wounds Neurological: Denies: Numbness, Tingling, Focal weakness Psychiatric: Denies: Anxiety, Depression Hematologic/ Lymphatic: Denies: Easy Bruising, Easy Bleeding VTE Information - Inpt Only VTE Present on Admission: Yes VTE Mechan Device Prophylaxis: None VTE Pharm Prophylaxis ordered?: Yes VTE Suspected: Suspected PE Patient Problems: Active and Suspected Problems Pulmonary embolism (Acute) Pneumonia (Acute) - Physical Exam General: Alert, Oriented x3, Cooperative, No apparent distress HEENT: Atraumatic, PERRLA, EOMI, Normocephalic Oral: Moist Mucosa Neck: Supple, No JVD Lungs: Clear to auscultation, Normal air movement, No rhonchi, No wheeze, No rales Cardiovascular: Regular rate, Regular Rhythm Vital Signs Temp Pulse Resp BP Pulse Ox 101 F H 91 20 H 149/95 H 96 09/29/18 14:00 09/29/18 14:56 09/29/18 14:56 09/29/18 14:56 09/29/18 14:56 Oxygen Flow Rate (L/min) 22 Oxygen Delivery Method Nasal Cannula Weight: 250 lb 0.067 oz Body Mass Index (BMI) 41.5 Laboratory Tests Past 24 Hrs WBC 8.8 RBC 4.73 Hgb 13.8 Hct 40.6 MCV 85.8 MCH 29.2 MCHC 34.0 RDW 13.3 RDW Differential 42.2 Plt Count 214 WBC RBC Hgb Hct MCV MCH MCHC RDW RDW Differential Plt Count MPV Immature Gran % (Auto) Assessment/Plan All Active Problems Pulmonary embolism (Acute) Pneumonia (Acute) 1. Bilateral pulmonary emboli/? pneumonia vs hemorrhage/acute hypoxia - Since there is a possibility of hemorrhage by radiology, will start heparin gtt - IF there is no hemoptysis, or decrease in hemoglobin, can likely discharge on oral anticoagulant - No family h/o clotting disorders, therefore no further hypercoag work-up indicated - With the CTA not demonstrating cancer, and a recent colonoscopy (per patient report), he will need a CT abd/pelvis as an outpatient to complete cancer work-up - Unasyn/Azithro for possible pneumonia given his fever 2. HTN - Can resume his home medications - Currently SBP is stable in the 140's DVT: Heparin gtt Code Visit Inpatient E AND M: 03195 Subs Hosp L3 09/29/18 1525 <Electronically signed by Eduardo Snyder MD> Date Eduardo Snyder MD Cosigner Signature: Date (if applicable) CC: Eduardo Snyder MD; Jarrett Bliss DO Signed CTA CHEST W/WO Observed: 09/29/2018 Status: F Source: [place] CONTRAST 1:22 PM [facility] REPOSITORY [facility] Imaging Services [address] [place] [address] CTA Chest W/WO Contrast MR#: [id number] Acct: [id number] Name: DANY APODACA Rep #: [id number] : 1960 M 58 From: Art Franks MD PCP: Jarrett Bliss DO Status: REG ER Study: CTA Chest W/WO Contrast Date of Exam: 09/29/18 Exam# [id number] Ordering Dr: Ashia Molina MD STUDY: CTA CHEST REASON FOR EXAM: Male, 58 years old. Shortness of breath with cough and intermittent fevers RADIATION DOSAGE (If Supplied By Facility): CTDIvol = ( 16.67 ) mGy, DLP = ( 677.01 ) mGycm TECHNIQUE: The examination was performed with the intravenous administration of 100ML ml of Isovue 370 contrast material. Post-processing of the angiographic images was performed, with multiplanar reformation and 3D reconstruction. Individualized dose optimization techniques were used for this CT. COMPARISON: None. FINDINGS: Normal enhancement of the main pulmonary artery and right and left pulmonary arteries. There are filling defects identified in the bilateral upper lobes, right middle lobe, lingular and bilateral lower lobe segmental pulmonary arteries. No saddle embolus seen. No evidence of right heart strain. Normal thoracic aorta and visualized great vessels. There is no demonstrated aortic dissection. Heart is mildly enlarged. There are visualized mediastinal lymph nodes, which are within normal size limits, and with normal morphology. Normal hilar regions. Normal visualized trachea and bronchi. The lungs are well expanded. Multilobar peribronchial infiltrates identified in the right upper lobe, right lower lobe and left lower lobe. Minimal reticulonodular densities in the lingula. Normal pleura. Normal chest wall structures. There are degenerative changes of thoracic spine. Normal visualized upper abdomen. CT/CTA Chest W/WO Contrast IMPRESSION: 1. Bilateral segmental pulmonary embolism. No CT evidence of right heart strain. 2. Mild cardiomegaly. 3. Multilobar pulmonary infiltrates may represent atelectasis versus airspace disease (pneumonia, edema or hemorrhage). Electronically Signed: Art Franks MD at 14:05 EST , Service support , CC: Ashia Molina MD; Jarrett Bliss DO Machine Welder: Signed Observed: 09/29/2018 Status: F Source: [place] CULTURE, BLOOD (WB) 12:52 PM [facility] REPOSITORY BC No growth in 5 days. Performed By: #### M200.1000 #### [facility] [address] [place], [address] CBC W/DIFF, AUTOMATED Collected: 09/29/2018 Status: F Source: [place] 12:45 PM [facility] REPOSITORY TYPE CODE TESTS RESULT OUT OF RANGE REFERENCE UNITS LAB L100.1000 4.4-11.0 K/mm3 Normal WBC 8.8 LAB L100.1200 4.6-6.2 M/mm3 Normal RBC 4.73 LAB L100.1300 13.0-16.5 g/dl Normal HGB 13.8 LAB L100.1400 40-54 % Normal HCT 40.6 LAB L100.1500 80-94 fL Normal MCV 85.8 LAB L100.1600 27.0-32.0 pg Normal MCH 29.2 LAB L100.1700 32-36 g/gl Normal MCHC 34.0 LAB L100.1810 11.6-14.6 % Normal RDW CV 13.3 LAB L100.1820 35.1-43.9 fl Normal RDW SD 42.2 LAB L100.1900 150-450 K/mm3 Normal PLT 214 LAB L100.2000 6.2-12.0 fl Normal MPV 9.9 LAB L100.2100 47-70 % Normal NEUT% 69.7 LAB L100.2200 19-41 % Low LY% 17.7 LAB L100.2300 0-10 % High MONO% 11.8 LAB L100.2400 0-5 % Normal EO% 0.3 LAB L100.2500 0-1 % Normal BASO% 0.2 LAB L100.2550 0.0-0.9 % Normal IM GRAN % 0.300 Result Comment: IG% - Immature Granulocytes (promyelocytes, myelocytes and metamyelocytes) > 1% indicates that a LEFT SHIFT is Present. LAB L100.2620 2.0-7.7 X10 3/uL Normal Absolute Neut 6.1 LAB L100.2720 0.83-4.51 X10 3/ul Normal Absolute Lymph 1.55 Performed By: #### L100.0100 #### [facility] [address] [place], [place], [address] BASIC METABOLIC Collected: 09/29/2018 Status: F Source: [place] PROFILE (BMP) 12:45 PM [facility] REPOSITORY TYPE CODE TESTS RESULT OUT OF RANGE REFERENCE UNITS LAB L501.0100 74-106 mg/dL Normal GLU 99 Result Comment: Please note revised GLUCOSE reference range effective 2017. LAB L501.1000 7-18 mg/dL Normal BUN 12 LAB L501.1100 0.70-1.30 mg/dL Normal CREAT,SERUM 1.07 Result Comment: The validity of the calculated GFR AND GFRAA in patients over 70 years has not been determined. Clinical correlation is essential. LAB L501.1110 >60 mL/min Normal EST GFR 76 Result Comment: Non- GFR Calc LAB L501.1115 >60 mL/min Normal EST GFR - AA 92 Result Comment: GFR Calc LAB L501.1255 ml/min Normal Estimated CRCL 67.06 LAB L501.1300 10-20 RATIO Normal BUN/CRE 11.2 LAB L501.2200 8.5-10 mg/dL Low .1 CA 8.1 LAB L501.5300 136-14 mmol/L Normal 5 NA 139 LAB L501.5600 3.5-5. mmol/L Normal 1 K 3.7 LAB L501.5900 98-107 mmol/L Normal CL 102 LAB L501.6100 21.0-3 mmol/L Normal 2.0 CO2 31.0 LAB L501.6200 5-15 Normal GAP 6 Performed By: #### L500.2500 #### [facility] [address] [place], [place], [address] LACTIC ACID Collected: 09/29/2018 Status: F Source: [place] 12:45 PM [facility] REPOSITORY Order Comment: Yes/No query for Sepsis Lactate Rule Y TYPE CODE TESTS RESULT OUT OF RANGE REFERENCE UNITS LAB L503.6005 0.4-2.0 mmol/L Normal LACTIC ACID 1.4 Performed By: #### L503.6005 #### [facility] [address] [place], [address] Observed: 09/29/2018 Status: F Source: [place] CULTURE, BLOOD (WB) 12:45 PM [facility] REPOSITORY BC No growth in 5 days. Performed By: #### M200.1000 #### [facility] [address] [place], [address] PARTIAL THROMBOPLAST Collected: 09/29/2018 Status: F Source: [place] TIME 12:43 PM [facility] REPOSITORY TYPE CODE TESTS RESULT OUT OF RANGE REFERENCE UNITS LAB L300.4310 24.1-36.2 Seconds Normal PTT 29.2 Performed By: #### L300.4310 #### [facility] [address] [place], [address] CHEST 1 VIEW Observed: 09/29/2018 Status: F Source: [place] (PORTABLE) 12:32 PM COUNTS INCLUDE 234 BEDS AT THE [facility] H[facility]PITAL REPOSITORY [facility] Imaging Services [address] [place] [address] Chest 1 View (Portable) MR#: [id number] Acct: [id number] Name: DANY APODACA Rep #: [id number] : 1960 M 58 From: Art Franks MD PCP: Jarrett Bliss DO Status: REG ER Study: Chest 1 View (Portable) Date of Exam: 09/29/18 Exam# [id number] Ordering Dr: Ashia Molina MD STUDY: X-RAY CHEST REASON FOR EXAM: Male, 58 years old. Cough and shortness of breath TECHNIQUE: AP COMPARISON: None. FINDINGS: EKG leads project over the chest. Mild elevation of the right hemidiaphragm. No airspace consolidation. There is no demonstrated pleural abnormality. Normal size cardiac silhouette for portable technique. Normal mediastinum and kirsten. Normal visualized pulmonary arteries. Normal visualized aortic arch and descending thoracic aorta. Normal visualized thoracic spine. Normal visualized ribs, clavicles, and shoulders. There is no demonstrated abnormality of the visualized soft tissue structures of the upper abdomen. RAD/Chest 1 View (Portable) IMPRESSION: Nonacute portable x-ray examination of the chest. Electronically Signed: Art Franks MD at 13:17 EST , Service support , CC: Ashia Molina MD; Jarrett Bliss DO Machine Welder: Signed ALLERGIES ALLERGIES DATE TYPE / CODE NAME / CODE REACTION SEVERITY SOURCE 10/23/2018 Drug No Known Unknown [facility] Allergy/4160 Allergies/F00 Hospital 03924(SNOMED 9633592(RXNOR Repository CT) M) ENCOUNTERS ENCOUNTERS ADMIT/DISCHARGE ACCOUNT ADMITTING ENCOUNTER LOCATION SOURCE NUMBER CLASS 10/25/2018 [id number] Ambulatory [place] 1 [facility] ing:PSN Repository 10/25/2018 [id number] Ambulatory BMSBuilding:W [place] 8 [facility] Repository 10/24/2018 [id number] Ambulatory [place] 0 [facility] ing:PSN Repository 10/24/2018 [id number] Ambulatory BMSBuilding:W [place] 8 [facility] Repository 10/23/2018/ [id number] Ambulatory BMSBuilding:B [place] 9 0 [facility] Repository 09/29/2018 [id number] [place], Ambulatory BMSBuilding:B [place] 0 Eduardo F [facility] Repository 09/29/2018/ [id number] [place], Inpatient [place] 8 8 Eduardo F [facility] ing:PCURoom: Repository [id number]: 1 09/29/2018 [id number] [place], Ambulatory BMSBuilding:B [place] 6 Eduardo F MS.[facility] Repository 09/29/2018 [id number] [place], Ambulatory BMSBuilding:B [place] 6 Eduardo F MS.CF.[facility] Repository 09/29/2018 [id number] [place], Ambulatory BMSBuilding:B [place] 4 Eduardo F MS.[facility] Repository 09/29/2018 [id number] [place], Ambulatory BMSBuilding:B [place] 5 Eduardo F MS.[facility] Repository 09/29/2018 [id number] [place], Ambulatory BMSBuilding:B [place] 7 Eduardo F MS.CF.[facility] Repository 09/29/2018 [id number] [place], Ambulatory BMSBuilding:B [place] 7 Eduardo Beaver MS.WIP [facility] Repository 09/29/2018 [id number] [place], Ambulatory BMSBuilding:B [place] 7 Eduardo Beaver MS.CF.PMW [facility] Repository 09/29/2018 [id number] Ambulatory BMSBuilding:W [place] 0 [facility] Repository 09/29/2018 [id number] Ambulatory BMSBuilding:W [place] 2 [facility] Repository 09/29/2018/ [id number] Ambulatory BMSBuilding:W [place] 8 3 [facility] Repository PAYERS PAYERS ENCOUNTER GUARANTOR PAYER SUBSCRIBER SOURCE 10/25/2018 DANY Faulkner Primary DANY Mercer [id number] [place] Insurance:MEDICAL HENRYDOB: [facility] [id number] Hospital [address]Tdh: (330) Number: Repository [phone] () [id number] Date:9126-82-27XI[address] [address]SY: 10/25/2018 Secondary NOT GIVENUNK [place] Insurance:SELF PAY [facility] Number: Effective Repository Date:2018-10-23 10/25/2018 DANY Faulkner Primary DANY Mercer [id number] [place] Insurance:MEDICAL HENRYDOB: [facility] [id number] Hospital [address]Nrx: (330) Number: Repository [phone] () [id number] Date:4503-12-28UV[address] [address]JH: 10/25/2018 Secondary NOT GIVENUNK [place] Insurance:SELF PAY [facility] Number: Effective Repository Date:2018-10-25 10/24/2018 DANY Faulkner Primary DANY Mercer [id number] [place] Insurance:MEDICAL HENRYDOB: [facility] [id number] Hospital [address]Lmy: (330) Number: Repository [phone] () [id number] Date:1451-46-08RN [address] [place] [address]JL: 10/24/2018 Secondary NOT GIVENUNK [place] Insurance:SELF PAY [facility] Number: Effective Repository Date:2018-10-23 10/24/2018 DANY Faulkner Primary DANY [id number] [place] Insurance:MEDICAL HENRYDOB: [facility] [id number] [address]Tel: (330) Number: Repository [phone] () [id number] Date:2775-16-57KJ [address] [address]DR: 10/24/2018 Secondary NOT GIVENUNK [place] Insurance:SELF PAY [facility] Number: Effective Repository Date:2018-10-24 10/23/2018 DANY S Primary DANY Mercer [id number] [place] Insurance:MEDICAL HENRYDOB: [facility] [id number] [place] [address]Tel: (330) Number: Repository [phone] () [id number] Date:6498-93-32DT [address] [address]KY: 10/23/2018 Secondary NOT GIVENUNK [place] Insurance:SELF PAY [facility] Number: Effective Repository Date:2018-10-18 09/29/2018 DANY S Primary DANY [id number] [place] Insurance:MEDICAL HENRYDOB: [facility] [id number] [place] [id number]: (330) Number: Repository [phone] () [id number] Date:6270-18-18WZ [address] [address]TO: 09/29/2018 Secondary NOT GIVENUNK [place] Insurance:SELF PAY [facility] Number: Effective Repository Date:2018-09-29 09/29/2018 DANY S Primary DANY S [place] [id number] [place] Insurance:MEDICAL HENRYDOB: [facility] [id number] Hospital [address]Rnl: (330) Number: Repository [phone] () [id number] Date:5434-64-45OM [address] [place] [address]RR: 09/29/2018 Secondary NOT GIVENUNK [place] Insurance:SELF PAY [facility] Number: Effective Repository Date:2018-09-29 09/29/2018 DANY S Primary DANY [id number] [place] Insurance:MEDICAL HENRYDOB: [facility] [id number] [place] [address]Tel: (330) Number: Repository [phone] () [id number] Date:0665-65-44XA [address] [address]YS: 09/29/2018 Secondary NOT GIVENUNK [place] Insurance:SELF PAY [facility] Number: Effective Repository Date:2018-09-29 09/29/2018 DANY S Primary DANY Mercer [id number] [place] Insurance:MEDICAL HENRYDOB: [facility] [id number] [place] [id number]: (330) Number: Repository [phone] () [id number] Date:5984-38-40HF [address] [address]MS: 09/29/2018 Secondary NOT GIVENUNK [place] Insurance:SELF PAY [facility] Number: Effective Repository Date:2018-09-29 09/29/2018 DANY S Primary DANY [id number] [place] Insurance:MEDICAL HENRYDOB: [facility] [id number] Hospital [address]Hjw: (330) Number: Repository [phone] () [id number] Date:4966-52-73MB [address] [address]RI: 09/29/2018 Secondary NOT GIVENUNK [place] Insurance:SELF PAY [facility] Number: Effective Repository Date:2018-09-29 09/29/2018 DANY Faulkner Primary DANY [id number] [place] Insurance:MEDICAL HENRYDOB: [facility] [id number] Hospital [address]Omb: (330) Number: Repository [phone] () [id number] Date:7530-37-22TN [address] [address]BU: 09/29/2018 Secondary NOT GIVENUNK [place] Insurance:SELF PAY [facility] Number: Effective Repository Date:2018-09-29 09/29/2018 DANY Faulkner Primary DANY [id number] [place] Insurance:MEDICAL HENRYDOB: [facility] [id number] [place] [id number]: (330) Number: Repository [phone] () [id number] Date:3500-26-24PO [address] [address]JW: 09/29/2018 Secondary NOT GIVENUNK [place] Insurance:SELF PAY [facility] Number: Effective Repository Date:2018-09-29 09/29/2018 DANY Faulkner Primary DANY [id number] [place] Insurance:MEDICAL HENRYDOB: [facility] [id number] Hospital [address]Sng: (330) Number: Repository [phone] () [id number] Date:7949-73-90NY [address] [address]KR: 09/29/2018 Secondary NOT GIVENUNK [place] Insurance:SELF PAY [facility] Number: Effective Repository Date:2018-09-29 09/29/2018 DANY Faulkner Primary DANY [id number] [place] Insurance:MEDICAL HENRYDOB: [facility] [id number] [place] [address]Cng: (330) Number: Repository [phone] () [id number] Date:4309-03-18IY [address] [place] [address]XC: 09/29/2018 Secondary NOT GIVENUNK [place] Insurance:SELF PAY [facility] Number: Effective Repository Date:2018-09-29 09/29/2018 DANY S Primary DANY [id number] [place] Insurance:MEDICAL HENRYDOB: [facility] [id number] [place] [id number]: (330) Number: Repository [phone] () [id number] Date:7440-84-37TY [address] [place] [address]PC: 09/29/2018 Secondary NOT GIVENUNK [place] Insurance:SELF PAY [facility] Number: Effective Repository Date:2018-09-29 09/29/2018 DANY S Primary DANY [id number] [place] Insurance:MEDICAL HENRYDOB: [facility] [id number] Hospital [address]Zbf: (330) Number: Repository [phone] () [id number] Date:5908-99-31QE [address] [place] [address]WY: 09/29/2018 Secondary NOT GIVENUNK [place] Insurance:SELF PAY [facility] Number: Effective Repository Date:2018-09-29 09/29/2018 DANY S Primary DANY [id number] [place] Insurance:MEDICAL HENRYDOB: [facility] [id number] Hospital [address]Rdn: (330) Number: Repository [phone] () [id number] Date:0871-27-59NB [address] [place] [address]FK: 09/29/2018 Secondary NOT GIVENUNK [place] Insurance:SELF PAY [facility] Central Number: Effective Repository Date:2018-09-29
== END 2018-10-03 14:55 | disposition home or self-care (01) | DRG 175 ==
LOC: ED 13:04 → PCU 15:41
PROVIDERS: Hospitalist; Internal Medicine Critical Care Medicine; Physician Assistant; Admitting Provider Family Medicine; Emergency Provider Emergency Medicine; Family Provider Preventive Medicine Occupational Medicine; PCP Preventive Medicine Occupational Medicine; Visit Provider Internal Medicine
DX: I26.99 Other pulmonary embolism without acute cor pulmonale (principal); J18.9 Pneumonia, unspecified organism; I10 Essential (primary) hypertension; R09.02 Hypoxemia; E66.9 Obesity, unspecified; Z68.39 Body mass index [BMI] 39.0-39.9, adult
CPT/HCPCS: 36415; 71045; 71275; 80048; 83605; 83735; 84443; 85025; 85730; 87040; 87070; 87205; 87449; 87641; 93005; 93306; 94667; 99284; J7030; Q9957; Q9967; A4216; C8929; J0295

== ENCOUNTER → 2018-10-24 07:10 | Outpatient (CLI) | payer OTHER, SELFPAY ==
[2018-10-23 09:16] VITALS: BMI 41.5
--- NOTE | 2018-10-24 14:15 | PFTCOMP_ITS ---
COMPLETE PULMONARY FUNCTION TEST INTERPRETATION Brief HPI: Patient is a 58 year old male, currently under the care of Sherri Posadas, who presents to [facility] for complete pulmonary function tests secondary to diagnosis of dyspnea. Respiratory therapist reports good effort and reproducible results. Interpretation: Forced expiration spirometry shows no large airways obstructive ventilatory defect with an FEV1 of 77% predicted. There is no significant bronchodilator response by strict ATS criteria. Spirograms are of good quality and plateau normally. The respiratory flow volume loop shows a normal pattern. Lung volumes by body plethysmography show a normal total lung capacity at 5.14 L, 89% predicted. All other lung volumes are within normal limits. Diffusion capacity by carbon monoxide is decreased at 66% predicted. The airway resistance is normal. No previous pulmonary function tests were available for review. Impression: Isolated reduction in diffusion capacity consistent with a pulmonary vascular disorder
== END ==
PROVIDERS: Family Provider Preventive Medicine Occupational Medicine; PCP Preventive Medicine Occupational Medicine; Referring Provider Nurse Practitioner Acute Care; Visit Provider Nurse Practitioner Acute Care
DX: R06.02 Shortness of breath (principal)
CPT/HCPCS: 94060; 94726; 94729

== ENCOUNTER → 2018-10-25 08:42 | Outpatient (CLI) | payer OTHER, SELFPAY ==
[2018-10-23 09:16] VITALS: BMI 41.5
[2018-10-25 09:14] VITALS: PULSE 73; PULSE 75; PULSE 88; PULSE 89; PULSE 92; PULSE 93; PULSE 94; PULSE 95; O2SAT 93; O2SAT 94; O2SAT 95; O2SAT 96; O2SAT 97
--- NOTE | 2018-10-25 14:46 | WT_ITS ---
PSN 6 Minute Walk Test - 6 Minute Walk Test 6 Minute Walk Test: 6 Minute Walk Test PSN:6-Minute Walk Test Start: 10/25/18 09:14 Freq: Status: Active Protocol: [id number] Document 10/25/18 09:14 [facility] (Rec: 10/25/18 09:17 [facility] [id number]) 6 Minute Walk Test Date Performed 10/25/18 Time Performed 09:00 Height 5 ft 6 in Weight: 110.677 kg Weight in Pounds 244.[address]: Sherri Posadas Assistive device used: None Pre-test Oxygen Delivery Method Room Air Pulse Ox (%) 97 Pulse Rate (60-100 beats/min) 75 Dyspnea Bairon Scale (0-10) 0 1st minute Oxygen Delivery Method Room Air Pulse Ox (%) 96 Pulse Rate (60-100 beats/min) 89 Dyspnea [place]air[place] Scale (0-10) 0 2nd minute Oxygen Delivery Method Room Air Pulse Ox (%) 95 Pulse Rate (60-100 beats/min) 92 Dyspnea [place]airon Scale (0-10) 1 3rd minute Oxygen Delivery Method Room Air Pulse Ox (%) 93 Pulse Rate (60-100 beats/min) 95 Dyspnea [place]airon Scale (0-10) 1 4th minute Oxygen Delivery Method Room Air Pulse Ox (%) 94 Pulse Rate (60-100 beats/min) 88 Dyspnea [place]airon Scale (0-10) 1 5th minute Oxygen Delivery Method Room Air Pulse Ox (%) 93 Pulse Rate (60-100 beats/min) 93 Dyspnea Bairon Scale (0-10) 1 6th minute Oxygen Delivery Method Room Air Pulse Ox (%) 95 Pulse Rate (60-100 beats/min) 94 Dyspnea [place]airon Scale (0-10) 1 Post-test Oxygen Delivery Method Room Air Pulse Ox (%) 97 Pulse Rate (60-100 beats/min) 73 Dyspnea [place]airon Scale (0-10) 0 Full Laps Walked 21 Partial Lap, Number of Tiles Walked 12 Total Distance Walked (ft) 1251 - Interpretation Interpretation: The patient was able to ambulate 1251 feet over the course of 6 minutes on room air with no assistive devices or breaks. Patient's oxygen ruth was noted at 93%. These findings are consistent with a normal walking oximetry. - Recommendations Recommendations: No supplemental oxygen is indicated at this time.
== END ==
PROVIDERS: Family Provider Preventive Medicine Occupational Medicine; PCP Preventive Medicine Occupational Medicine; Referring Provider Nurse Practitioner Acute Care; Visit Provider Nurse Practitioner Acute Care
DX: R06.02 Shortness of breath (principal)
CPT/HCPCS: 94618

== ENCOUNTER → 2018-11-15 20:00 | Outpatient (CLI) | payer OTHER, SELFPAY ==
[2018-10-23 09:16] VITALS: BMI 41.5
== END ==
PROVIDERS: Family Provider Preventive Medicine Occupational Medicine; PCP Preventive Medicine Occupational Medicine; Referring Provider Nurse Practitioner Acute Care; Visit Provider Nurse Practitioner Acute Care
DX: G47.33 Obstructive sleep apnea (adult) (pediatric) (principal)
CPT/HCPCS: 95811

== ENCOUNTER → 2019-04-02 | Outpatient (CLI) | payer OTHER, SELFPAY ==
[2019-01-16 15:18] VITALS: BMI 41.5
[2019-04-02 19:08] LABS: Creatinine, Serum 1.59 mg/dL (0.70-1.30); EST Glomerular Filtration Rate 48 mL/min (>60); Est Glom Filt Rate - Afr Amer 58 mL/min (>60)
== END | disposition home or self-care (01) ==
LOC: LAB 15:33
PROVIDERS: Family Provider Preventive Medicine Occupational Medicine; PCP Preventive Medicine Occupational Medicine; Referring Provider Preventive Medicine Occupational Medicine; Visit Provider Preventive Medicine Occupational Medicine
DX: I26.99 Other pulmonary embolism without acute cor pulmonale (principal)
CPT/HCPCS: 36415; 82565

== ENCOUNTER → 2019-04-10 | Outpatient (CLI) | payer OTHER, SELFPAY ==
[2019-01-16 15:18] VITALS: BMI 41.5
--- NOTE | 2019-04-10 16:44 | CT_ITS ---
STUDY: CTA CHEST REASON FOR EXAM: Male, 58 years old. Pneumonia and PE RADIATION DOSAGE (If Supplied By Facility): CTDIvol = ( 19.69 ) mGy, DLP = ( 707.60 ) mGycm TECHNIQUE: The examination was performed with the intravenous administration of 100CC IV Isovue 370. Post-processing of the angiographic images was performed, with multiplanar reformation and 3D reconstruction. Individualized dose optimization techniques were used for this CT. COMPARISON: 09/29/2018 FINDINGS: Normal enhancement of the main pulmonary artery and right and left pulmonary arteries. Normal enhancement of the bilateral peripheral pulmonary arteries. There is no demonstrated pulmonary embolism. Normal thoracic aorta and visualized great vessels. There is no demonstrated aortic dissection. Mild cardiomegaly. Normal mediastinum. Normal hilar regions. Normal visualized trachea and bronchi. The lungs are well expanded. Normal pulmonary parenchyma. Normal pleura. Normal chest wall structures. There are degenerative changes of thoracic spine. Normal visualized upper abdomen. CT/CTA Chest W/WO Contrast IMPRESSION: No evidence of pulmonary embolus or pneumonia. Electronically Signed: Bashir Finn MD at 18:22 EDT Tel , Service support ,
== END | disposition home or self-care (01) ==
LOC: CT 16:43
PROVIDERS: Family Provider Preventive Medicine Occupational Medicine; PCP Preventive Medicine Occupational Medicine; Referring Provider Preventive Medicine Occupational Medicine; Visit Provider Preventive Medicine Occupational Medicine
DX: I26.99 Other pulmonary embolism without acute cor pulmonale (principal)
CPT/HCPCS: 71275; Q9967

== ENCOUNTER → 2020-05-21 08:09 | Outpatient (CLI) | payer OTHER, SELFPAY ==
[2020-03-12 09:04] VITALS: BMI 39.9
--- NOTE | 2020-05-21 13:15 | PFTCOMP ---
COMPLETE PULMONARY FUNCTION TEST INTERPRETATION Brief HPI: Patient is a 59 year old male, currently under the care of Dr. White, who presents to [facility] for complete pulmonary function tests secondary to diagnosis of dyspnea. Respiratory therapist reports good effort and reproducible results. Interpretation: Forced expiration spirometry shows no large airways obstructive ventilatory defect with an FEV1 of 74% predicted. There is no significant bronchodilator response by strict ATS criteria. Spirograms are of good quality and plateau normally. The respiratory flow volume loop shows a normal pattern. Lung volumes by body plethysmography show a decreased total lung capacity at 4.66 L, 81% predicted. All other lung volumes are reduced symmetrically. Diffusion capacity by carbon monoxide is decreased at 70% predicted. The airway resistance is elevated. Compared to previous pulmonary function tests from 10/24/2018, there has been no significant change. Impression: Mild restrictive ventilatory defect with a symmetric reduction diffusing capacity and no significant change compared to previous testing
== END ==
PROVIDERS: PCP Preventive Medicine Occupational Medicine; Referring Provider Nurse Practitioner Acute Care; Visit Provider Nurse Practitioner Acute Care
DX: R06.02 Shortness of breath (principal)
CPT/HCPCS: 94060; 94726; 94729

== ENCOUNTER → 2020-05-28 09:40 | Outpatient (CLI) | payer OTHER, SELFPAY ==
[2020-03-12 09:04] VITALS: BMI 39.9
[2020-05-28 10:00] VITALS: PULSE 58; PULSE 71; PULSE 78; PULSE 80; PULSE 86; PULSE 89; O2SAT 90; O2SAT 92; O2SAT 93; O2SAT 94; O2SAT 95
--- NOTE | 2020-05-28 14:00 | WT_ITS ---
PSN 6 Minute Walk Test - 6 Minute Walk Test 6 Minute Walk Test: 6 Minute Walk Test PSN:6-Minute Walk Test Start: 05/28/20 10:37 Freq: Status: Active Protocol: [id number].6MINW Document 05/28/20 10:00 EW (Rec: 05/28/20 10:40 EW [id number]) 6 Minute Walk Test Date Performed 05/28/20 Time Performed 10:00 Height 5 ft 6 in Weight: 268 lb Weight in Pounds 268.[address]: Sherri Posadas Assistive device used: None Pre-test Oxygen Delivery Method Room Air Pulse Ox (%) 95 Pulse Rate (60-100 beats/min) 58 L Dyspnea Bairon Scale (0-10) 1 Exertion Bairon Scale (6-20) 7 1st minute Oxygen Delivery Method Room Air Pulse Ox (%) 93 Pulse Rate (60-100 beats/min) 78 2nd minute Oxygen Delivery Method Room Air Pulse Ox (%) 92 Pulse Rate (60-100 beats/min) 86 3rd minute Oxygen Delivery Method Room Air Pulse Ox (%) 90 Pulse Rate (60-100 beats/min) 86 4th minute Oxygen Delivery Method Room Air Pulse Ox (%) 93 Pulse Rate (60-100 beats/min) 86 5th minute Oxygen Delivery Method Room Air Pulse Ox (%) 93 Pulse Rate (60-100 beats/min) 89 6th minute Oxygen Delivery Method Room Air Pulse Ox (%) 92 Pulse Rate (60-100 beats/min) 80 Post-test Oxygen Delivery Method Room Air Pulse Ox (%) 94 Pulse Rate (60-100 beats/min) 71 Dyspnea Bairon Scale (0-10) 1 Exertion Bairon Scale (6-20) 11 Full Laps Walked 17 Partial Lap, Number of Tiles Walked 0 Total Distance Walked (ft) 1003 - Interpretation Interpretation: The patient ambulated 1003 feet over the course of 6 minutes beginning on room air without assistive devices or breaks. Pretesting oxygen saturation was noted to be 95% on room air. With ambulation, the ruth oxygen saturation was 90%. This is telephone claims representative of a significant exertional oxygen desaturation. - Recommendations Recommendations: There is no indication for the use of supplemental oxygen at this time. However, close interval follow-up is recommended, given the degree of oxygen desaturation noted during the study.
== END ==
PROVIDERS: PCP Preventive Medicine Occupational Medicine; Referring Provider Nurse Practitioner Acute Care; Visit Provider Nurse Practitioner Acute Care
DX: R06.02 Shortness of breath (principal)
CPT/HCPCS: 94618

== ENCOUNTER 2021-10-21 14:04 | Outpatient (CLI) | payer OTHER, SELFPAY ==
[2021-10-21 17:00] LABS: Protein, Urine (Random) 18.1 mg/dL (<11.9); Protein:Creat Ratio 144 mg/g CRE (0-200)
[2021-10-21 17:26] LABS: ALB/GLOB Ratio 0.8 RATIO (0.9-2.4); AST(SGOT) 32 U/L (15-37); Alanine Aminotransfer ALT/SGPT 36 U/L (16-61); Albumin, Serum 3.4 g/dL (3.2-5.0); Alkaline Phosphatase 91 U/L (45-117); Anion Gap 6 (5-15); BUN 24 mg/dL (7-18); BUN/Creat Ratio 21.1 RATIO (10-20); Chloride 104 mmol/L (98-107); Creatinine, Serum 1.14 mg/dL (0.70-1.30); EST Glomerular Filtration Rate 70 mL/min (>60); Est Glom Filt Rate - Afr Amer 84 mL/min (>60); Globulin 4.2 g/dL (2.2-4.2); Glucose 67 mg/dL (74-106); PSA,Total - Annual Screen 0.54 ng/mL (0.00-4.00); Potassium 3.7 mmol/L (3.5-5.1); Protein, Total 7.6 g/dL (6.4-8.2); Sodium Level 141 mmol/L (136-145)
== END 2021-10-21 23:59 | disposition short-term general hospital (02) ==
PROVIDERS: PCP Preventive Medicine Occupational Medicine; Visit Provider Preventive Medicine Occupational Medicine
DX: I10 Essential (primary) hypertension (principal); Z12.5 Encounter for screening for malignant neoplasm of prostate
CPT/HCPCS: 36415; 80053; 82570; 84153; 84156; G0103

== ENCOUNTER → 2022-11-28 | Outpatient (CLI) | payer OTHER, SELFPAY ==
[2022-11-28 15:54] LABS: Hematocrit 45.4 % (40-54); Hemoglobin 14.9 g/dL (13.0-16.5); Mean Corp Hgb Conc 32.8 g/dL (32-36); Mean Corpuscular Hgb 29.1 pg (27.0-32.0); Mean Corpuscular Volume 88.7 fL (80-94); Mean Platelet Vol. 11.2 fl (6.2-12.0); Platelet Count 236 K/mm3 (150-450); RBC Distribution Width CV 13.5 % (11.6-14.6); RBC Distribution Width SD 44.1 fl (35.1-43.9); Red Blood Count 5.12 M/mm3 (4.6-6.2)
[2022-11-28 16:28] LABS: ALB/GLOB Ratio 0.8 RATIO (0.9-2.4); AST(SGOT) 26 U/L (15-37); Alanine Aminotransfer ALT/SGPT 35 U/L (16-61); Albumin, Serum 3.4 g/dL (3.2-5.0); Alkaline Phosphatase 90 U/L (45-117); Anion Gap 7 (5-15); BUN 24 mg/dL (7-18); BUN/Creat Ratio 17.4 RATIO (10-20); Calcium,Total 8.8 mg/dL (8.5-10.1); Chloride 101 mmol/L (98-107); Creatinine, Serum 1.38 mg/dL (0.70-1.30); EST Glomerular Filtration Rate 56 mL/min (>60); Est Glom Filt Rate - Afr Amer 68 mL/min (>60); Globulin 4.1 g/dL (2.2-4.2); Glucose 81 mg/dL (74-106); PSA,Total - Annual Screen 0.57 ng/mL (0.00-4.00); Potassium 3.5 mmol/L (3.5-5.1); Protein, Total 7.5 g/dL (6.4-8.2); Sodium Level 140 mmol/L (136-145)
[2022-11-28 17:39] LABS: Microalbumin,Random Urine 94.1 mg/L (NO RANGE EST.)
== END | disposition home or self-care (01) ==
LOC: LAB 15:12
PROVIDERS: PCP Preventive Medicine Occupational Medicine; Visit Provider Preventive Medicine Occupational Medicine
DX: I10 Essential (primary) hypertension (principal); Z79.01 Long term (current) use of anticoagulants; Z12.5 Encounter for screening for malignant neoplasm of prostate
CPT/HCPCS: 36415; 80053; 82043; 84153; 85027; G0103

== ENCOUNTER → 2022-12-15 | Outpatient (CLI) | payer OTHER, SELFPAY ==
[2022-12-15 16:31] LABS: Hemoglobin 14.1 g/dL (13.0-16.5); Mean Corp Hgb Conc 32.8 g/dL (32-36); Mean Corpuscular Hgb 28.7 pg (27.0-32.0); Mean Corpuscular Volume 87.6 fL (80-94); Mean Platelet Vol. 11.1 fl (6.2-12.0); Platelet Count 226 K/mm3 (150-450); RBC Distribution Width CV 13.7 % (11.6-14.6); RBC Distribution Width SD 44.3 fl (35.1-43.9); Red Blood Count 4.91 M/mm3 (4.6-6.2); White Blood Count 10.5 K/mm3 (4.4-11.0)
== END | disposition home or self-care (01) ==
PROVIDERS: PCP Preventive Medicine Occupational Medicine; Visit Provider Preventive Medicine Occupational Medicine
DX: D72.829 Elevated white blood cell count, unspecified (principal)
CPT/HCPCS: 36415; 85027

== ENCOUNTER → 2023-05-29 | Outpatient (CLI) | payer OTHER, SELFPAY ==
[2023-05-29 13:14] LABS: Anion Gap 6 (5-15); BUN 11 mg/dL (7-18); BUN/Creat Ratio 9.8 RATIO (10-20); Calcium,Total 8.8 mg/dL (8.5-10.1); Chloride 103 mmol/L (98-107); Creatinine, Serum 1.12 mg/dL (0.70-1.30); EST Glomerular Filtration Rate 71 mL/min (>60); Est Glom Filt Rate - Afr Amer 86 mL/min (>60); Glucose 110 mg/dL (74-106); Potassium 3.9 mmol/L (3.5-5.1); Sodium Level 140 mmol/L (136-145)
== END | disposition home or self-care (01) ==
LOC: LAB 11:33
PROVIDERS: PCP Preventive Medicine Occupational Medicine; Referring Provider Preventive Medicine Occupational Medicine; Visit Provider Preventive Medicine Occupational Medicine
DX: N18.31 Chronic kidney disease, stage 3a (principal)
CPT/HCPCS: 36415; 80048

== ENCOUNTER 2023-10-12 13:01 | Emergency (ER) | payer OTHER, SELFPAY ==
[2023-10-12] VITALS (10 sets, daily range): BP systolic 148–209; BP diastolic 83–98; PULSE 50–71; RESP 14–22; TEMP 36.3–36.9; O2SAT 92–99; BMI 43.2
--- NOTE | 2023-10-12 13:06 | ED.RN ---
WILL BE IN AFTER SHE FINISHES WITH A CLIENT. #[phone] Co worker brought pt in. Denice [phone]
--- NOTE | 2023-10-12 14:12 | CT_ITS ---
INDICATION: vertigo, high BP EXAMINATION: CT BRAIN WITHOUT CONTRAST, CTA HEAD, AND CTA NECK TECHNIQUE: Noncontrast axial images were obtained of the brain. Subsequently, routine carotid CT angiogram protocol was performed without and with IV contrast. In addition, images were obtained of the [place]. NASCET criteria using the distal ICAs for comparison were used for evaluation of stenoses. 3D reconstructions were reviewed. A radiation dose optimization technique was used for this scan. IV Contrast dosage and agent: 100 cc of Isovue-370 COMPARISON: No relevant prior comparison study available FINDINGS: --CT BRAIN WITHOUT CONTRAST: BRAIN PARENCHYMA: No intra- or extra-axial hemorrhage. No evidence of acute infarct. No intracranial mass or mass effect. There is preservation of the dawson/white matter interface. Posterior fossa structures are unremarkable. CSF SPACES: Appropriate for age. No hydrocephalus. Basal cisterns are patent. CALVARIUM, SKULL BASE, PARANASAL SINUSES AND MASTOID AIR CELLS: There is mild opacification of the maxillary sinuses consistent with a history of sinusitis. No discrete lytic or blastic abnormalities. ASPECTS Score for Acute Strokes: 10 --CTA NECK: AORTIC ARCH AND BRANCHES: Normal anatomy, patent. RIGHT CCA: No occlusion, significant stenosis or dissection. RIGHT ICA: No occlusion, significant stenosis or dissection. LEFT CCA: No occlusion, significant stenosis or dissection. LEFT ICA: No occlusion, significant stenosis or dissection. RIGHT VERTEBRAL ARTERY: No occlusion, significant stenosis or dissection. LEFT VERTEBRAL ARTERY: No occlusion, significant stenosis or dissection. NECK SOFT TISSUES: Unremarkable. --CTA HEAD: --Anterior circulation: ICAs: No significant stenosis at the intracranial/visualized segments. ACAs: No significant stenosis at the visualized segments. ACOM: Present. MCAs: No significant stenosis at the visualized segments. --Posterior circulation: PCOMs: Within normal limits early interventionist: No significant stenosis at the visualized segments. BASILAR ARTERY: No significant stenosis. VERTEBRAL ARTERIES: No significant stenosis at the intradural/visualized segments. No evidence of intracranial aneurysm or vascular malformation. CT/CTA Head AND Neck W/ Contrast IMPRESSION: No acute intracranial process. Within normal limits CTA of the head and neck. Electronically Signed: Reba Toure MD at 15:11 EST Reading Location ID and State: [facility] / [place] Tel , Service support ,
--- NOTE | 2023-10-12 14:13 | EKG12_ITS ---
Test Reason : DIZZINESS Blood Pressure : / mmHG Vent. Rate : 052 BPM Atrial Rate : 052 BPM P-R Int : 202 ms QRS Dur : 120 ms QT Int : 484 ms P-R-T Axes : 025 -21 053 degrees QTc Int : 450 ms Sinus bradycardia Non-specific intra-ventricular conduction delay Borderline ECG Confirmed by RAPHAEL GONZALEZ, GELY ([id number]), primer expeditor and drier ZEUS LEBLANC ([id number]) on 10/16/2023 8:27:21 AM Referred By: Sander Breen Confirmed By:GELY LIM MD
--- NOTE | 2023-10-12 14:14 | EX.ED.DYSGE1 ---
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 He states at 1 point he suddenly felt dizzy felt like things were moving he felt nauseated and vomited 1 point did not feel well. He was walking crooked and off balance. Denies any focal neurologic symptoms in any of his extremities, he states his vision seems a little blurry at 1 point but denies any visual field losses. No headache. States he also noticed at 1 point ringing in the right ear. No recent illness or earache. No recent injury. Does not recall having this before. He is anticoagulated on apixaban for history of PE. [facility] Medical History (Updated 10/12/23 @ 17:[address] Sander Breen MD) HTN (hypertension) Pneumonia Pulmonary embolism Home Medications bisoprolol 5 mg-hydrochlorothiazide 6.25 mg tablet 1 tab PO DAILY@1500 bp control 09/29/18 [History Last Taken 09/28/18 15:30] albuterol sulfate 90 mcg/actuation aerosol inhaler (ProAir HFA) 2 puff inhalation Q6H PRN 06/14/21 [History Last Taken Unknown] apixaban 2.5 mg tablet 2.5 mg PO BID #60 tabs 06/14/21 [Rx Last Taken Unknown] fluticasone fur. 200 mcg-umeclid 62.5 mcg-vilant 25 mcg inhalat.powder (Trelegy Ellipta) 1 inh inhalation DAILY #60 ea 03/09/23 [Rx Last Taken Unknown] meclizine 25 mg tablet 25 mg PO Q8H PRN PRN Dizziness #20 tabs 10/12/23 [Rx Last Taken Unknown] Allergy/AdvReac Type Severity Reaction Status Date / Time No Known Allergies Allergy Verified 10/12/23 13:02 Family History (Reviewed 12/13/22 @ 09:31 by Sherri Posadas SWITCHBOARD OPERATOR HELPER, SWITCHBOARD OPERATOR HELPER-C) Father CVA (cerebral vascular accident) Pulmonary embolism Surgical History No history of previous surgery Social History household members: spouse housing: house current occupational status: employed current occupation: [employer] pets and animals: Yes pets and animals: cat(s) Smoking Status: Former smoker second hand exposure: Yes alcohol intake: never substance use type: does not use ROS ROS ED Constitutional Constitutional ED: Denies chills or fever(s) Eyes Eyes: Denies change in vision or diplopia ENT ENT ED: Reports tinnitus and vertigo; Denies headache(s), rhinorrhea or sore throat Cardiovascular Cardiovascular: Denies chest pain or palpitations Respiratory/Chest Respiratory/Chest: Denies cough or dyspnea Gastrointestinal Gastrointestinal: Reports nausea and vomiting; Denies abdominal pain or diarrhea Genitourinary Genitourinary ED: Denies dysuria or hematuria Musculoskeletal Musculoskeletal: Denies back pain or neck pain Integumentary Denies abscess or rash Neurologic Neurologic: Reports as per HPI, disequilibrium and dizziness; Denies abnormal speech, headache(s), paresthesias, seizures or weakness Psychiatric Psychiatric: Denies anxiety or suicidal thoughts EXAM Physical Exam Const Vital Signs: 10/12/23 13:03 10/12/23 13:18 10/12/23 13:40 Temperature 97.3 F L 98 F Temperature Source Temporal Oral Pulse Rate 56 L 53 L Respiratory Rate 14 15 Respiratory Effort Respiratory Pattern Blood Pressure 209/90 H 194/91 H 191/96 H Blood Pressure Mean 129 125 127 Pulse Ox 99 96 Oxygen Delivery Method Room Air Room Air 10/12/23 15:01 10/12/23 15:26 10/12/23 15:29 Temperature 98.5 F 97.5 F L 97.5 F L Temperature Source Oral Oral Pulse Rate 55 L 50 L 54 L Respiratory Rate 16 16 18 Respiratory Effort Respiratory Pattern Blood Pressure 187/95 H 187/95 H 185/89 H Blood Pressure Mean 125 125 121 Pulse Ox 93 92 93 Oxygen Delivery Method Room Air Room Air 10/12/23 16:10 10/12/23 17:01 10/12/23 16:49 Temperature Temperature Source Pulse Rate 55 L 71 69 Respiratory Rate 16 22 H 14 Respiratory Effort Respiratory Pattern Blood Pressure 200/98 H 149/83 H 162/88 H Blood Pressure Mean 132 105 112 Pulse Ox 93 94 96 Oxygen Delivery Method Room Air Room Air Room Air 10/12/23 16:50 Temperature Temperature Source Pulse Rate Respiratory Rate Respiratory Effort Normal Non-Labored Respiratory Pattern Normal Blood Pressure Blood Pressure Mean Pulse Ox Oxygen Delivery Method Positive well nourished, well developed and obese General Appearance ED: well developed and NAD Nutritional Appearance: obese HEENT Reports moist mucous membranes HEENT Narrative: TMs normal bilaterally. normocephalic and atraumatic Eyes PERRL and EOMs intact bilaterally Eyes Narrative: Non-fatigable horizontal nystagmus to the right. No vertical or rotatory nystagmus. Neck full ROM and supple Neck Narrative: No carotid bruits Resp normal respiratory effort and clear to auscultation bilaterally Cardio regular rate, regular rhythm and no murmurs GI non-tender and non-distended Auscultation: normoactive bowel sounds Palpation: soft Back/Spine no CVA tenderness General Back: other FROM Extremity normal to inspection General Extremety ED: Negative for edema, pulses abnormal or tenderness General Extremity: Negative for edema or pulses abnormal Neuro oriented x3, CN's II-XII intact bilaterally and no sensory deficits noted Neuro Narrative: Bpjepq-jn-senf and gsic-mh-ospg bilaterally normal. Positive Suni-Hallpike to the right with nonfatigable horizontal nystagmus. Patient has normal gait across the room and back without disequilibrium at this time. After Buxton-Hallpike, patient is mildly vertiginous and has an abnormal jolt test consistent with peripheral etiology. Sensorium / Orientation: awake and alert Motor Exam: strength 5/5 throughout Psych mental status grossly normal Skin no rashes or lesions noted and no wounds NIHSS NIHSS Initial: 1a Level of Consciousness: 0 1b LOC Questions (Score 2 if aphasic/stupor): 0 1c LOC Commands (Only score 1st attempt): 0 2 Best Gaze (If aphasic, use reflexive mvmts.): 0 3 Visual: 0 4 Facial Palsy: 0 5 Motor Arm Right (UN = amputation/fusion): 0 5 Motor Arm Left: 0 6 Motor Leg Right: 0 6 Motor Leg Left: 0 7 Limb ataxia (Only + if out of proportion): 0 8 Sensory (Aphasia/stupor=0 or 1, coma=2): 0 9 Best Language: 0 10 Dysarthria (mute, coma=2, intubated=UN): 0 11 Extinction and Inattention (only scored if +): 0 Total Score: 0 MDM MDM MDM Narrative Medical decision making narrative: Although patient does have significantly elevated blood pressure, this is all suggestive of peripheral etiology of vertigo. Given his elevated blood pressure I did send him for CT/CTA of the head and neck, I reviewed the images and the report I agree with it, this is negative for anything acute. This is making central vertigo less likely but not completely ruled out, although his jolt test is abnormal, highly suggestive of peripheral vertigo. Additionally he is already anticoagulated, making stroke less likely as well. After passing a dysphagia screen without any difficulty we gave him meclizine and IV Zofran, and he felt much better on reevaluation and is ambulatory without ataxia. We also gave him some hydralazine because on recheck his blood pressure was still elevated, and after that, his blood pressure is down to 149/83. Unknown if this is related. Discussed all this with him, offered admission he declines and prefers to go home. In this case I will prescribe him meclizine advised close outpatient follow-up with his doctor. He is comfortable with that plan. Lab Data Attestation: I reviewed the patient's lab results. Labs: Laboratory Results - last 24 hr 10/12/23 13:23 WBC 12.2 H RBC 5.11 Hgb 14.5 Hct 44.6 MCV 87.3 MCH 28.4 MCHC 32.5 RDW Std Deviation 43.8 RDW Coeff of Soraya 13.6 Plt Count 238 MPV 10.9 Immature Gran % (Auto) 0.200 Neut % (Auto) 66.1 Lymph % (Auto) 25.0 Roberts % (Auto) 7.2 Eos % (Auto) 0.8 Baso % (Auto) 0.7 Absolute Neuts (auto) 8.0 H Absolute Lymphs (auto) 3.04 Nucleated RBC % 0 Sodium 138 Potassium 3.1 L Chloride 101 Carbon Dioxide 32.0 Anion Gap 5 BUN 17 Creatinine 1.18 Estim Creat Clear Calc 59.32 Est GFR (MDRD) Af Amer 81 Est GFR (MDRD) Non-Af 67 BUN/Creatinine Ratio 14.4 Glucose 122 H Calcium 8.9 Radiography Diagnostic Testing: Clinical Impression(s) from Imaging Studies Head/Neck CTA 10/12/23 14:12 IMPRESSION: No acute intracranial process. Within normal limits CTA of the head and neck. Electronically Signed: Reba Toure MD at 15:11 EST , Rhythm Strip Rhythm Strip: Sinus Rhythm Rate: 55 Ectopy: None EKG Initial EKG: Attestation: I personally reviewed and interpreted this EKG as follows: Interpretation: No Acute Injury Pattern and Sinus Bradycardia Prior EKG tracings: available for review Prior: Unchanged Discharge Plan Triage Chief Complaint: Dizziness ED Provider: Sander Breen Dx/Rx/DC Orders Clinical Impression: Accelerated hypertension, Benign paroxysmal positional vertigo of right ear Instructions: BPPV, ED High Blood Pressure Hypertension Prescriptions: New meclizine [meclizine] 25 mg tablet 25 mg PO Q8H PRN PRN (Reason: Dizziness) Qty: 20 0RF No Action albuterol sulfate [ProAir HFA] 90 mcg/actuation HFA aerosol inhaler 2 puff inhalation Q6H PRN bisoprolol-hydrochlorothiazide 1 TAB tablet 1 tab PO DAILY@1500 apixaban 2.5 mg tablet 2.5 mg PO BID Qty: 60 11RF Trelegy Ellipta 200-62.5-25 mcg blister with device 1 inh inhalation DAILY Qty: 60 6RF Primary Care Provider: Jarrett Bliss Referrals: Jarrett Bliss DO [Primary Care Provider] - 3-5 Days Disposition Disposition: Home, Self Care Stroke Documentation Questions Stroke Team Activated: No (History and exam suggest peripheral etiology of vertigo rather than central) Was Patient considered for Endovascular Intervention?: No-CTA negative, determined not to be an endovascular candidate
[2023-10-12 14:25] LABS: Absolute Lymphocyte Count 3.04 X10^3/uL (0.83-4.51); Basophil# 0.08 X10^3/uL; Basophil% 0.7 % (0-1); Eosinophils% 0.8 % (0-5); Hematocrit 44.6 % (40-54); Hemoglobin 14.5 g/dL (13.0-16.5); Lymphocyte # 3.04 X10^3/ul (0.83-4.51); Mean Corp Hgb Conc 32.5 g/dL (32-36); Mean Corpuscular Hgb 28.4 pg (27.0-32.0); Mean Corpuscular Volume 87.3 fL (80-94); Mean Platelet Vol. 10.9 fl (6.2-12.0); Monocyte# 0.87 X10^3/uL; Monocyte% 7.2 % (0-10); NRBC Flagged by Analyzer 0 % (0-5); Neutrophil # 8.04 X10^3/uL (2.7-7.7); Neutrophil % 66.1 % (47-70); Platelet Count 238 K/mm3 (150-450); RBC Distribution Width CV 13.6 % (11.6-14.6); RBC Distribution Width SD 43.8 fl (35.1-43.9); Red Blood Count 5.11 M/mm3 (4.6-6.2); White Blood Count 12.2 K/mm3 (4.4-11.0)
[2023-10-12] MEDS: Meclizine HCl 25 MG Tablet PO (14:31)
[2023-10-12] MEDS: Ondansetron 4 MG/2 ML Vial IV (14:31)
--- OUTSIDE RECORDS SUMMARY | 2023-10-12 14:31 | XMS RPT_ITS | CCD ---
Author Name Unknown Address [address] [place] [address] Organization [facility] Care Team Providers Care Channeler Runner Name Role Phone JACINDA MARCH Unavailable Unavailable RONY RAO Unavailable Unavailable JACINDA MARCH Unavailable Unavailable JACINDA MARCH Unavailable Unavailable JACINDA MARCH Unavailable Unavailable Problems Problem Classification Problem Date Documented Da te Episodic/Chronic Unclassified (1 source) Encounter for screening for malignant neoplasm of colon; Translations: [Encounter for screening for malignant neoplasm of colon] Onset: 07-12-2017 Episodic Results Test Name Value Interpretation Reference Range Facil ity Encounters Encounter Date Encounter Type Care Provider Facility Start: 07-12-2017 End: 07-12-2017 Ambulatory JACINDA MARCH [facility] Start: 07-02-2017 End: 07-02-2017 Ambulatory JACINDA MARCH [facility] Summary Purpose Family History No Family History Records FoundNo Family History Records FoundNo Family History Records Found Advance Directives No Advanced Directives Records FoundNo Advanced Directives Records FoundNo Advanced Directives Records Found Additional Source Comments (unrecognized sect ion and content) No Status Records FoundNo Status Records FoundNo Status Records Found INFORMATION SOURCE (unrecogn ized section and content) DATE CREATED AUTHOR AUTHOR'S ORGANIZ ATION 09/23/2019 [employer] DATE CREATED AUTHOR AUTHOR'S ORGANIZ ATION 10/28/2020 [place] [employer] ([place]) FOR RECORDS PERTAINING TO PATIENTS WHO ARE OR HAVE BEEN ENROLLED IN A CHEMICAL DEPENDENCY/SUBSTANCEABUSE PROGRAM, SOME INFORMATION MAY BE OMITTED. This clinical summary was aggregated from multiple sources. Caution should be exercised in using it in the provision of clinical care. This summary normalizes information from multiple sources, and as a consequence, information in this document may materially change the coding, format and clinical context of patient data. In addition, data may be omitted in some cases. CLINICAL DECISIONS SHOULD BE BASED ON THE PRIMARY CLINICAL RECORDS. [employer] [facility]. provides no warranty or guarantee of the accuracy or completeness of information in this document.
[2023-10-12 14:36] LABS: Anion Gap 5 (5-15); BUN 17 mg/dL (7-18); BUN/Creat Ratio 14.4 RATIO (10-20); Calcium,Total 8.9 mg/dL (8.5-10.1); Chloride 101 mmol/L (98-107); Creatinine, Serum 1.18 mg/dL (0.70-1.30); EST Glomerular Filtration Rate 67 mL/min (>60); Est Glom Filt Rate - Afr Amer 81 mL/min (>60); Estimated Creatinine Clearance 59.32 ml/min; Glucose 122 mg/dL (74-106); Potassium 3.1 mmol/L (3.5-5.1); Sodium Level 138 mmol/L (136-145)
[2023-10-12] MEDS: hydrALAZINE 20 MG/ML Vial IV (16:25)
== END 2023-10-12 17:24 | disposition home or self-care (01) ==
PROVIDERS: Emergency Provider Emergency Medicine; PCP Preventive Medicine Occupational Medicine; Referring Provider Emergency Medicine; Visit Provider Emergency Medicine
DX: I10 Essential (primary) hypertension (principal); E66.9 Obesity, unspecified; H81.11 Benign paroxysmal vertigo, right ear; Z87.891 Personal history of nicotine dependence; Z86.711 Personal history of pulmonary embolism
CPT/HCPCS: 70496; 70498; 80048; 85025; 93005; 96374; 96375; 99285; Q9967; A4216; J2405

== ENCOUNTER → 2023-11-16 | Outpatient (CLI) | payer OTHER, SELFPAY ==
[2023-11-16 14:01] LABS: Anion Gap 1 (5-15); BUN 14 mg/dL (7-18); BUN/Creat Ratio 11.9 RATIO (10-20); Calcium,Total 8.5 mg/dL (8.5-10.1); Chloride 104 mmol/L (98-107); Creatinine, Serum 1.18 mg/dL (0.70-1.30); EST Glomerular Filtration Rate 67 mL/min (>60); Est Glom Filt Rate - Afr Amer 81 mL/min (>60); Glucose 84 mg/dL (74-106); Potassium 3.4 mmol/L (3.5-5.1); Sodium Level 138 mmol/L (136-145)
--- OUTSIDE RECORDS SUMMARY | 2023-11-16 15:42 | XMS RPT_ITS | CCD ---
Author Name Unknown Address [address] [place] [address] Organization [facility] Care Team Providers Care Alarm Signal Operator Name Role Phone JACINDA MARCH Unavailable Unavailable [...] Start: 07-12-2017 End: 07-12-2017 Ambulatory JACINDA MARCH [facility] Start: 07-02-2017 End: 07-02-2017 Ambulatory JACINDA MARCH [facility] Summary Purpose Family History No Family History [...] DATE CREATED AUTHOR AUTHOR'S ORGANIZ ATION 09/23/2019 [employer] DATE CREATED AUTHOR AUTHOR'S ORGANIZ ATION 10/28/2020 [place] [employer] ([place]) FOR RECORDS PERTAINING TO PATIENTS [...] BE BASED ON THE PRIMARY CLINICAL RECORDS. [facility] [employer] [facility]. provides no warranty or guarantee of the accuracy or completeness of information in this document.
== END | disposition home or self-care (01) ==
LOC: LAB 12:30
PROVIDERS: PCP Preventive Medicine Occupational Medicine; Referring Provider Nurse Practitioner Adult Health; Visit Provider Nurse Practitioner Adult Health
DX: I10 Essential (primary) hypertension (principal)
CPT/HCPCS: 36415; 80048; 84443

== ENCOUNTER → 2023-12-11 | Outpatient (CLI) | payer OTHER, SELFPAY ==
[2023-12-11 17:23] LABS: Anion Gap 6 (5-15); BUN 21 mg/dL (7-18); BUN/Creat Ratio 15.9 RATIO (10-20); Calcium,Total 8.9 mg/dL (8.5-10.1); Chloride 102 mmol/L (98-107); Creatinine, Serum 1.32 mg/dL (0.70-1.30); EST Glomerular Filtration Rate 59 mL/min (>60); Est Glom Filt Rate - Afr Amer 71 mL/min (>60); Glucose 91 mg/dL (74-106); Potassium 3.1 mmol/L (3.5-5.1); Sodium Level 140 mmol/L (136-145); Thyroid Stim Hormone (TSH) 1.68 uIU/mL (0.358-3.74)
--- OUTSIDE RECORDS SUMMARY | 2023-12-11 23:55 | XMS RPT_ITS | CCD ---
Author Name Unknown Address [address] [place] [address] Organization [facility] Care Team Providers Care Lacquer Sprayer Name Role Phone JACINDA MARCH Unavailable Unavailable [...] Start: 07-12-2017 End: 07-12-2017 Ambulatory JACINDA MARCH [facility] Start: 07-02-2017 End: 07-02-2017 Ambulatory JACINDA MARCH [facility] Summary Purpose Family History No Family History [...] DATE CREATED AUTHOR AUTHOR'S ORGANIZ ATION 09/23/2019 [employer] DATE CREATED AUTHOR AUTHOR'S ORGANIZ ATION 10/28/2020 [place] [employer] ([place]) FOR RECORDS PERTAINING TO PATIENTS [...] BE BASED ON THE PRIMARY CLINICAL RECORDS. [facility] [employer] [facility]. provides no warranty or guarantee of the accuracy or completeness of information in this document.
== END | disposition home or self-care (01) ==
LOC: LAB 15:44
PROVIDERS: PCP Preventive Medicine Occupational Medicine; Referring Provider Nurse Practitioner Adult Health; Visit Provider Nurse Practitioner Adult Health
DX: I10 Essential (primary) hypertension (principal)
CPT/HCPCS: 36415; 80048; 84443

== ENCOUNTER 2023-12-28 13:29 | Emergency (ER) | payer OTHER, SELFPAY ==
[2023-12-28 13:29] VITALS: BP 174/94; PULSE 53; RESP 20; TEMP 36.6; O2SAT 92
--- NOTE | 2023-12-28 15:57 | ED.RN ---
pt stated feeling better and wanted to go home
== END 2023-12-28 15:22 | disposition left against medical advice (07) ==
LOC: ED 15:33
PROVIDERS: PCP Preventive Medicine Occupational Medicine
DX: Z53.21 Procedure and treatment not carried out due to patient leaving prior to being seen by health care provider (principal)
CPT/HCPCS: 99282

== ENCOUNTER → 2025-10-13 | Outpatient (CLI) | payer SELFPAY ==
[2025-10-13 12:39] LABS: Creatinine, Urine (random) 125.00 mg/dL (39.00-259.00); Microalbumin,Random Urine 38.3 mg/L (<20 mg/L)
[2025-10-13 15:32] LABS: AST(SGOT) 30 U/L (<=37); Alanine Aminotransfer ALT/SGPT 29 U/L (<=46); Albumin, Serum 3.9 g/dL (3.4-4.8); Alkaline Phosphatase 80 U/L (40-129); Anion Gap 11 (7-18); BUN 23 mg/dL (4-19); BUN/Creat Ratio 18.0 RATIO (10-20); Calcium,Total 9.4 mg/dL (7.6-11.0); Carbon Dioxide 30.7 mmol/L (20.0-29.0); Chloride 99 mmol/L (96-106); Cholesterol 176 mg/dL (<=200); Globulin 3.3 g/dL (2.2-4.2); Glucose 112 mg/dL (70-99); Low Density Lipoprotein Calc. 114 mg/dL; PSA,Total - Annual Screen 0.74 ng/mL (0.02-4.00); Potassium 2.9 mmol/L (3.5-5.1); Triglycerides 102 mg/dL; Very Low Density Lipoprotein 20 mg/dL (5-40); cholesterol:hdl ratio screen 4.06
== END | disposition home or self-care (01) ==
PROVIDERS: PCP Nurse Practitioner Family; Referring Provider Nurse Practitioner Family; Visit Provider Nurse Practitioner Family
DX: I10 Essential (primary) hypertension (principal); Z13.220 Encounter for screening for lipoid disorders; Z12.5 Encounter for screening for malignant neoplasm of prostate
CPT/HCPCS: 36415; 80053; 80061; 82043; 82570; 84153; G0103